=== PATIENT | female | born 1940 | race Caucasian/White ===

== ENCOUNTER 2017-04-06 19:58 | Emergency (ER) | payer MEDICARE, OTHER ==
[2017-04-06] MEDS ORDERED: Sodium Chloride 0.9% 500 ML IV SCH (20:45)
[2017-04-06] MEDS ORDERED: cefTRIAXone 1 GM in Premix Bag 1 BAG IV SCH (20:45)
[2017-04-06] MEDS ORDERED: Sodium Chloride 0.9% 500 ML IV ONE (20:54)
[2017-04-06 20:55] LABS: CHLORIDE,CL 106 mmol/L (98-110); SODIUM,NA 133 mmol/L (136-146)
--- NOTE | 2017-04-06 21:04 | EDM.PDOC ---
ED HPI GENERAL MEDICAL PROBLEM - General Chief Complaint: Fever Stated Complaint: PT HAS FEVER Time Seen by Provider: 04/06/17 20:02 Source of Information: Reports: Patient, Family History Limitations: Reports: No Limitations - History of Present Illness INITIAL COMMENTS - FREE TEXT/NARRATIVE: HISTORY AND PHYSICAL: History of present illness: [Patient is brought to the emergency room by her family. She's complained of a fever for the past 3 days she reports up to 107.0. Family has checked her temperature over the past couple of days with a reading of 101. On Sunday, April 04 she was diagnosed with a urinary tract infection at [facility] and started on Macrobid. Since starting on antibiotics she's been having some decreased appetite and nausea. Family reports that patient has had urinary tract infections over the past one year. This has never been worked up for followed by urologist. Patient admits that she had some confusion when she has had temperatures. Has not had any incontinence or burning with urination. She has episodes where she feels chills and shivers while urinating. No blood in her urine and no low back pain. No abdominal tenderness.] Review of systems: As per history of present illness and below otherwise all systems reviewed and negative. Past medical history: As per history of present illness and as reviewed below otherwise noncontributory. Surgical history: As per history of present illness and as reviewed below otherwise noncontributory. Social history: No reported history of drug or alcohol abuse. Family history: As per history of present illness and as reviewed below otherwise noncontributory. Physical exam: General: Well-developed well-nourished female in no acute distress. HEENT: Atraumatic, normocephalic. Oral mucous membranes are pink and moist, throat clear., neck supple, nontender. Lungs: Clear to auscultation, breath sounds equal bilaterally, chest nontender. Heart: S1S2, regular rate and rhythm. negative for clicks, rubs, or JVD. Abdomen: Soft, nondistended, nontender. Negative for masses, guarding or rebound. Negative for costovertebral or suprapubic tenderness. Pelvis: Stable nontender. Genitourinary: Deferred. Rectal: Deferred. Extremities: Atraumatic, negative for cords or calf pain. No Cyanosis or edema to feet or lower legs. Neurovascular unremarkable. Seems spry and has good range of motion. Neuro: Awake, alert, oriented. Motor and sensory unremarkable throughout. Exam nonfocal. Diagnostics: [CBC, CMP, UA, urine culture] Therapeutics: [Ceftriaxone 1 gram IV, normal saline 500mL] Impression: [UTI] Plan: [Rocephin 1 g given in the ER. Urine culture is pending. DC Macrobid. Start Bactrim DS #14 sig one by mouth twice a day zero refills. Son states that she will be scheduled for followup at [facility] on Sunday. Will make referral to Dr. Salgado for recurring UTI.] Definitive disposition and diagnosis as appropriate pending reevaluation and review of above. - Related Data Allergies Allergy/AdvReac Type Severity Reaction Status Date / Time No Known Allergies Allergy Verified 04/06/17 20:03 Home Meds: Home Meds Aspirin [Halfprin] 81 mg PO DAILY 05/04/15 [History] Estradiol 2 mg PO DAILY 05/04/15 [History] Nitrofurantoin [place]/Macrocryst [Macrobid] 0 mg PO BID 04/06/17 [History] Past Medical History HEENT History: Reports: Impaired Vision Cardiovascular History: Reports: None Respiratory History: Reports: Asthma Gastrointestinal History: Reports: Diverticulosis Genitourinary History: Reports: UTI, Recurrent Musculoskeletal History: Reports: None Neurological History: Reports: None Psychiatric History: Reports: None Dermatologic History: Reports: None - Infectious Disease History Infectious Disease History: Reports: Chicken Pox, Measles, Mumps - Past Surgical History Other Endocrine Surgeries/Procedures: removed half of thyroid from enlarged thyroid Social & Family History - Family History Family Medical History: Noncontributory - Tobacco Use Smoking Status *Q: Never Smoker - Recreational Drug Use Recreational Drug Use: No ED ROS GENERAL - Review of Systems Review Of Systems: ROS reveals no pertinent complaints other than HPI. ED EXAM, SEPSIS - Physical Exam Exam: See Below Course - Vital Signs Last Recorded V/S: Last Vital Signs Temp 98.8 F 04/06/17 20:09 Pulse 116 H 04/06/17 20:09 Resp 18 04/06/17 20:09 BP 130/88 04/06/17 20:09 Pulse Ox 93 L 04/06/17 20:09 - Orders/Labs/Meds Orders: Active Orders 24 hr Category Date Time Status CULTURE URINE [RM] Stat Lab 04/06/17 20:18 Received [email or web address] [Rocephin in Dextrose,Iso-Osm 1 GM/50 ML] 1 Med 04/06/17 20:45 Active gm Premix Bag 1 bag IV Q24H Medication Orders Ceftriaxone Sodium/Dextrose 1 (gm/ Premix) 50 mls @ 100 mls/hr IV Q24H LEILANI Last Admin: 04/06/17 21:01 Dose: 100 mls/hr Labs: Laboratory Tests 04/06/17 04/06/17 04/06/17 Range/Units 20:10 20:10 20:18 WBC 6.98 (4.0-11.0) K/uL RBC 4.48 (4.30-5.90) M/uL Hgb 13.6 (12.0-16.0) g/dL Hct 39.9 (36.0-46.0) % MCV 89.1 (80.0-98.0) fL MCH 30.4 (27.0-32.0) pg MCHC 34.1 (31.0-37.0) g/dL RDW Std Deviation 42.2 (28.0-62.0) fl RDW Coeff of Hammad 13 (11.0-15.0) % Plt Count 133 L (150-400) K/uL MPV 9.10 (7.40-12.00) fL Neut % (Auto) 84.6 H (48.0-80.0) % Lymph % (Auto) 3.6 L (16.0-40.0) % [place] % (Auto) 7.6 (0.0-15.0) % Eos % (Auto) 4.2 (0.0-7.0) % Baso % (Auto) 0.0 (0.0-1.5) % Neut # (Auto) 5.9 H (1.4-5.7) K/uL Lymph # (Auto) 0.3 L (0.6-2.4) K/uL [place] # (Auto) 0.5 (0.0-0.8) K/uL Eos # (Auto) 0.3 (0.0-0.7) K/uL Baso # (Auto) 0.0 (0.0-0.1) K/uL Nucleated RBC % 0.0 /100WBC Nucleated RBCs # 0 K/uL Sodium 133 L (136-146) mmol/L Potassium 3.7 (3.5-5.1) mmol/L Chloride 106 (98-110) mmol/L Carbon Dioxide 17 L (21-31) mmol/L BUN 16 (6.0-23.0) mg/dL Creatinine 0.8 (0.6-1.5) mg/dL Est Cr Clr Drug Dosing 45.65 mL/min Estimated GFR (MDRD) > 60.0 ml/min Glucose 163 H (60-110) mg/dL Calcium 9.1 (8.8-10.8) mg/dL Total Bilirubin 1.0 (0.1-1.5) mg/dL AST 33 (5-40) IU/L ALT 34 (8-54) IU/L Alkaline Phosphatase 118 (40-150) Total Protein 7.0 (6.0-8.0) g/dL Albumin 3.9 (3.4-4.8) g/dL Globulin 3.1 (2.0-3.5) g/dL Albumin/Globulin Ratio 1.3 (1.3-2.8) Urine Color YELLOW Urine Appearance CLEAR Urine pH 5.5 (5.0-8.0) Ur Specific [place] 1.015 (1.001-1.035) Urine Protein TRACE (NEGATIVE) mg/dL Urine Glucose (UA) NEGATIVE (NEGATIVE) mg/dL Urine Ketones NEGATIVE (NEGATIVE) mg/dL Urine Occult Blood SMALL H (NEGATIVE) Urine Nitrite NEGATIVE (NEGATIVE) Urine Bilirubin NEGATIVE (NEGATIVE) Urine Urobilinogen 0.2 (<2.0) EU/dL Ur Leukocyte Esterase MODERATE (NEGATIVE) Urine RBC 2-4 (0-2/HPF) Urine WBC 15-20 (0-5/HPF) Ur Epithelial Cells MODERATE (NONE-FEW) Urine Bacteria FEW (NEGATIVE) Meds: Medications Generic Name Dose Route Start Last Admin Trade Name Freq PRN Reason Stop Dose Admin Ceftriaxone Sodium/Dextrose 1 50 mls @ 100 mls/hr 04/06/17 20:45 04/06/17 21: 01 gm/ Premix IV 100 mls/hr Q24H LEILANI Administration Discontinued Medications Generic Name Dose Route Start Last Admin Trade Name Freq PRN Reason Stop Dose Admin Sodium Chloride 500 mls @ 999 mls/hr 04/06/17 20:45 Normal Saline IV STAT LEILANI Sodium Chloride 500 mls @ 999 mls/hr 04/06/17 20:54 04/06/17 20:55 Normal Saline IV 04/06/17 21:24 999 mls/hr .Bolus ONE Administration Departure - Departure Time of Disposition: 21:45 Disposition: Home, Self-Care 01 Condition: good Clinical Impression: UTI (urinary tract infection) Qualifiers: Urinary tract infection type: site unspecified Hematuria presence: without hematuria Qualified Code(s): N39.0 - Urinary tract infection, site not specified - Discharge Information Forms: ED Department Discharge Additional Instructions: The following information is given to patients seen in the emergency department who are being discharged to home. This information is to outline your options for follow-up care. We provide all patients seen in our emergency department with a follow-up referral. The need for follow-up, as well as the timing and circumstances, are variable depending upon the specifics of your emergency department visit. If you don't have a primary care physician on staff, we will provide you with a referral. We always advise you to contact your personal physician following an emergency department visit to inform them of the circumstance of the visit and for follow-up with them and/or the need for any referrals to a consulting specialist. The emergency department will also refer you to a specialist when appropriate. This referral assures that you have the opportunity for follow-up care with a specialist. All of these measure are taken in an effort to provide you with optimal care, which includes your follow-up. Under all circumstances we always encourage you to contact your private physician who remains a resource for coordinating your care. When calling for follow-up care, please make the office aware that this follow-up is from your recent emergency room visit. If for any reason you are refused follow-up, please contact the [facility] emergency department at and asked to speak to the emergency department charge nurse. [facility] [address] [place] [id number] [facility]rology [address] [place] [id number] You have been diagnosed with a urinary tract infection. Start Macrobid, start Bactrim. Take as instructed. Followup at the clinic listed above in 48-[address] Salgado's office at the clinic listed above to schedule an appointment for evaluation for recurring UTI. Continue Tylenol alternating with ibuprofen as needed for fever. Return to ER as needed as discussed. - My Orders Last 24 Hours: My Active Orders 04/06/17 20:18 CULTURE URINE [RM] Stat 04/06/17 20:45 cefTRIAXone [Rocephin in Dextrose,Iso-Osm 1 GM/50 ML] 1 gm Premix Bag 1 bag IV Q24H - Assessment/Plan Last 24 Hours: My Active Orders 04/06/17 20:18 CULTURE URINE [RM] Stat 04/06/17 20:45 cefTRIAXone [Rocephin in Dextrose,Iso-Osm 1 GM/50 ML] 1 gm Premix Bag 1 bag IV Q24H
[2017-04-06 21:40] VITALS: BP 122/58
== END 2017-04-06 21:58 | disposition home or self-care (01) ==
LOC: MW.ED 19:58
DX: N39.0 Urinary tract infection, site not specified (principal); Z79.899 Other long term (current) drug therapy
CPT/HCPCS: 36415; 80053; 81001; 85025; 87086; 96365; 99284; J0696; J7040

== ENCOUNTER → 2017-04-10 | Outpatient (CLI) | payer MEDICARE, OTHER | LOC: MW.CHIM 08:00 | PROVIDERS: ATTEND Internal Medicine | DX: N39.0 Urinary tract infection, site not specified (principal); Q31.0 Web of larynx; E03.9 Hypothyroidism, unspecified | CPT/HCPCS: 99214 ==

== ENCOUNTER 2020-12-10 11:06 | Inpatient (IN) | payer MEDICARE, OTHER ==
--- NOTE | 2020-12-10 11:23 | EDM.PDOC ---
ED HPI GENERAL MEDICAL PROBLEM - General Chief Complaint: Lower Extremity Injury/Pain Stated Complaint: FELL ON RT HIP Time Seen by Provider: 12/10/20 11:08 Source of Information: Reports: Patient History Limitations: Reports: No Limitations - History of Present Illness INITIAL COMMENTS - FREE TEXT/NARRATIVE: HISTORY AND PHYSICAL: History of present illness: Patient is an 80-year-old female who presents to the emergency room with complaints of right hip pain. She states that her foot got stuck under a rug as she was trying to turn around and lost her balance, falling onto her right hip. She denies hitting her head or having any loss of consciousness. She was able to call 911 for assistance. As she was getting into the ambulance she states her hip pain has improved a lot and "I think I just bruised a muscle". She denies any other extremity pain or tenderness. She offers no systemic complaints. Patient denies any fever, chills, headache, change in vision, synco pe or near syncope. Denies any chest pain, back pain, shortness of breath or cough. Denies any abdominal pain, nausea, vomiting, diarrhea, constipation or dysuria. Has not noted any blood in urine or stool. Patient has been eating and drinking appropriately. Review of systems: As per history of present illness and below otherwise all systems reviewed and negative. Past medical history: As per history of present illness and as reviewed below otherwise noncontributory. Surgical history: As per history of present illness and as reviewed below otherwise noncontributory. Social history: See social history for further information Family history: As per history of present illness and as reviewed below otherwise noncontributory. Physical exam: General: Well developed and well nourished. Alert and orientated x 3. Nontoxic in appearance and in no acute distress. Vital signs are stable and have been reviewed by me. Nursing notes were reviewed. HEENT: Nontender, no obvious injury/trauma, normocephalic, pupils equal and reactive bilaterally, negative for conjunctival pallor or scleral icterus, mucous membranes moist, TMs normal bilaterally, throat clear, teeth intact, no oral injury, neck supple, nontender, trachea midline. No drooling or trismus noted. No meningeal signs. No hot potato voice noted. Lungs: Clear to auscultation bilaterally. No wheezes, rales, or rhonchi. Chest nontender. Normal work of breathing, no accessory muscles used. Heart: S1S2, regular rate and rhythm without overt murmur, gallops, or rubs. No JVD. No peripheral edema Abdomen: Soft, nondistended, nontender. Normoactive bowel sounds. Negative for masses or costovertebral tenderness. Pelvis: Stable nontender. Genitourinary/Rectal: Deferred. C-spine/Back: No pinpoint vertebral tenderness upon palpation. No crepitus, step-offs or obvious deformities. Denies any urinary or fecal incontinence. Denies any numbness, tingling or saddle paresthesia. No concerns of serious infection, fracture or cord compression, or cauda equina syndrome. Deep tendon reflexes brisk bilaterally. Skin: Intact, warm, dry. No lesions or rashes noted. Hematologic: No petechiae or purpra. Mucosa appropriate color and normal nail bed color and refill. Extremities: Moves all extremities per self without difficulty or deficits, nontender with palpation of all extremities, negative for cords or calf pain. Neurovascular unremarkable. Neuro: Awake, alert, oriented. Cranial nerves II through XII unremarkable. Cerebellum unremarkable. Motor and sensory unremarkable throughout. Exam nonfocal. Psychiatric: Mood and affect are appropriate. Normal thought process. Answering questions appropriately. Notes: *This patient was seen and evaluated during the 2019 SARS-CoV-2 novel coronavirus pandemic period. Community viral transmission is ongoing at time of this encounter and the emergency department is operating under pandemic response procedures. EKG shows a sinus rhythm with a rate of 77. No concern for STEMI. While down in imaging she did have some increased pain and is requesting something at this time for pain control. Nursing staff was able to go start an IV and give her some morphine which alleviated her discomfort during transferring over to the CT cot. Head CT shows an atraumatic appearance of the brain, no acute findings. Chest x-ray is unremarkable. The initial view of the hip x-ray CT shows a possible intertrochanteric fracture (my viewing/MD viewing). We did get a CT for greater assessment of this. X-ray reading shows a subtle nondisplaced intertrochanteric fracture is present in the right femur. CT report shows an acute impacted intertrochanteric fracture of the right femur. Mild degenerative changes of the right hip. Basic lab work is pending. I have talked with the patient about today's findings, in addition to providing specific details for plan of care. 1325: Dr Corbin was consulted on this case. He is requesting that I talk with PATY and the hospitalist before he will accept this patient. 1330: PATY Gomez was called. He will have someone come see the patient. Dr Cleveland, hospitalist, was consulted on this case. 1335: Spoke with Bambi, daughter - gave patient update with permission. 1430: Dr Corbin here to see patient. There is discussion whether or not this patient is a high risk intubation due to some esophageal/tracheal surgeries in the past. Ultimately it was decided that this patient can stay for surgery. Patient has remained stable and comfortable while in the emergency room. Diagnostics: Head CT, 1 view chest, right hip and pelvis x-ray Therapeutics: Morphine, Impression: Intertrochanteric fracture of the right femur Plan: Inpatient admission to [facility] Definitive disposition and diagnosis as appropriate pending reevaluation and rev iew of above. R hip Pain Score (Numeric/FACES): 10 - Related Data Allergies Allergy/AdvReac Type Severity Reaction Status Date / Time No Known Allergies Allergy Verified 12/10/20 11:12 Home Meds: Home Meds Albuterol Sulfate [Albuterol Sulfate Hfa] 1 inh INH DAILY PRN 12/10/20 [History] Aspirin 81 mg PO BEDTIME 12/10/20 [History] Past Medical History HEENT History: Reports: Impaired Vision Cardiovascular History: Reports: None Respiratory History: Reports: Asthma Gastrointestinal History: Reports: Diverticulosis Genitourinary History: Reports: UTI, Recurrent Musculoskeletal History: Reports: None Neurological History: Reports: None Psychiatric History: Reports: None Dermatologic History: Reports: None - Infectious Disease History Infectious Disease History: Reports: Chicken Pox, Measles, Mumps - Past Surgical History Other Endocrine Surgeries/Procedures: removed half of thyroid from enlarged thyroid Social & Family History - Family History Family Medical History: No Pertinent Family History - Caffeine Use Caffeine Use: Reports: Coffee - Recreational Drug Use Recreational Drug Use: No Review of Systems - Review of Systems Review Of Systems: Comprehensive ROS is negative, except as noted in HPI. ED EXAM, GENERAL - Physical Exam Exam: See Below (See dictation) Course - Vital Signs Last Recorded V/S: Last Vital Signs Temp 98.8 F 12/10/20 17:23 Pulse 87 12/10/20 17:23 Resp 18 12/10/20 17:23 BP 146/72 H 12/10/20 17:23 Pulse Ox 97 12/10/20 17:23 - Orders/Labs/Meds Orders: Active Orders 24 hr Category Date Time Status CULTURE URINE [RM] Urgent Lab 12/10/20 15:20 Received Medication Orders Acetaminophen (Tylenol) 650 mg PO Q4H PRN PRN Reason: Pain (Mild 1-3)/fever Hydrocodone Bitart/Acetaminophen (Sassafras 325-5 Mg) 1 tab PO Q4H PRN PRN Reason: Pain (moderate 4-6) Albuterol (Proventil Neb Soln) 2.5 mg NEB Q2H PRN PRN Reason: Shortness Of Breath/wheezing Bisacodyl (Dulcolax) 10 mg RECTAL DAILY PRN PRN Reason: if no BM after 2 days Docusate Sodium (Colace) 100 mg PO BID [facility] Enoxaparin Sodium (Lovenox) 40 mg SUBCUT Q24H [facility] Stop: 12/11/20 17:31 Last Admin: 12/10/20 17:40 Dose: 40 mg Documented by: ALBIMAR Ceftriaxone Sodium/Dextrose 1 (gm/ Premix) 50 mls @ 100 mls/hr IV Q24H [facility] Last Admin: 12/10/20 17:08 Dose: 100 mls/hr Documented by: ALBIMAR Lactated Ringer's (Ringers, Lactated) 1,000 mls @ 50 mls/hr IV Q20H [facility] Last Admin: 12/10/20 17:39 Dose: 50 mls/hr Documented by: ALBIMAR Morphine Sulfate (Morphine) 2 mg IVPUSH Q3H PRN PRN Reason: Pain (severe 7-10) Last Admin: 12/10/20 16:52 Dose: 2 mg Documented by: ALBIMAR Ondansetron HCl (Zofran) 4 mg IVPUSH Q4H PRN PRN Reason: Nausea Sodium Chloride (Saline Flush) 2.5 ml FLUSH ASDIRECTED PRN PRN Reason: Keep Vein Open Labs: Laboratory Tests 12/10/20 12/10/20 12/10/20 Range/Units 13:45 13:45 13:45 WBC 11.11 H (4.0-11.0) K/uL RBC 4.28 L (4.30-5.90) M/uL Hgb 12.7 (12.0-16.0) g/dL Hct 39.0 (36.0-46.0) % MCV 91.1 (80.0-98.0) fL MCH 29.7 (27.0-32.0) pg MCHC 32.6 (31.0-37.0) g/dL RDW Std Deviation 41.2 (28.0-62.0) fl RDW Coeff of Hammad 12 (11.0-15.0) % Plt Count 180 (150-400) K/uL MPV 9.10 (7.40-12.00) fL Neut % (Auto) 87.7 H (48.0-80.0) % Lymph % (Auto) 6.8 L (16.0-40.0) % Buchanan % (Auto) 5.2 (0.0-15.0) % Eos % (Auto) 0.2 (0.0-7.0) % Baso % (Auto) 0.1 (0.0-1.5) % Neut # (Auto) 9.8 H (1.4-5.7) K/uL Lymph # (Auto) 0.8 (0.6-2.4) K/uL Buchanan # (Auto) 0.6 (0.0-0.8) K/uL Eos # (Auto) 0.0 (0.0-0.7) K/uL Baso # (Auto) 0.0 (0.0-0.1) K/uL Nucleated RBC % 0.0 /100WBC Nucleated RBCs # 0 K/uL INR 1.03 Sodium 141 (136-145) mmol/L Potassium 3.9 (3.5-5.1) mmol/L Chloride 109 H (98-107) mmol/L Carbon Dioxide 24.9 (21.0-32.0) mmol/L BUN 17 (7.0-18.0) mg/dL Creatinine 0.7 (0.6-1.0) mg/dL Est Cr Clr Drug Dosing TNP Estimated GFR (MDRD) > 60.0 ml/min Glucose 131 H (74-106) mg/dL Calcium 8.6 (8.5-10.1) mg/dL Total Bilirubin 0.4 (0.2-1.0) mg/dL AST 17 (15-37) IU/L ALT 21 (14-63) IU/L Alkaline Phosphatase 81 (46-116) U/L Total Protein 6.7 (6.4-8.2) g/dL Albumin 3.4 (3.4-5.0) g/dL Globulin 3.3 (2.6-4.0) g/dL Albumin/Globulin Ratio 1.0 (0.9-1.6) Urine Color Urine Appearance Urine pH (5.0-8.0) Ur Specific [place] (1.001-1.035) Urine Protein (NEGATIVE) mg/dL Urine Glucose (UA) (NEGATIVE) mg/dL Urine Ketones (NEGATIVE) mg/dL Urine Occult Blood (NEGATIVE) Urine Nitrite (NEGATIVE) Urine Bilirubin (NEGATIVE) Urine Urobilinogen (<2.0) EU/dL Ur Leukocyte Esterase (NEGATIVE) Urine RBC (0-2/HPF) Urine WBC (0-5/HPF) Ur Epithelial Cells (NONE-FEW) Amorphous Sediment (NEGATIVE) Urine Bacteria (NEGATIVE) Urine Mucus (NONE-MOD) SARS-CoV-2 RNA (MADISYN) (NEGATIVE) 12/10/20 12/10/20 Range/Units 14:07 15:20 WBC (4.0-11.0) K/uL RBC (4.30-5.90) M/uL Hgb (12.0-16.0) g/dL Hct (36.0-46.0) % MCV (80.0-98.0) fL MCH (27.0-32.0) pg MCHC (31.0-37.0) g/dL RDW Std Deviation (28.0-62.0) fl RDW Coeff of Hammad (11.0-15.0) % Plt Count (150-400) K/uL MPV (7.40-12.00) fL Neut % (Auto) (48.0-80.0) % Lymph % (Auto) (16.0-40.0) % Buchanan % (Auto) (0.0-15.0) % Eos % (Auto) (0.0-7.0) % Baso % (Auto) (0.0-1.5) % Neut # (Auto) (1.4-5.7) K/uL Lymph # (Auto) (0.6-2.4) K/uL Buchanan # (Auto) (0.0-0.8) K/uL Eos # (Auto) (0.0-0.7) K/uL Baso # (Auto) (0.0-0.1) K/uL Nucleated RBC % /100WBC Nucleated RBCs # K/uL INR Sodium (136-145) mmol/L Potassium (3.5-5.1) mmol/L Chloride (98-107) mmol/L Carbon Dioxide (21.0-32.0) mmol/L BUN (7.0-18.0) mg/dL Creatinine (0.6-1.0) mg/dL Est Cr Clr Drug Dosing Estimated GFR (MDRD) ml/min Glucose (74-106) mg/dL Calcium (8.5-10.1) mg/dL Total Bilirubin (0.2-1.0) mg/dL AST (15-37) IU/L ALT (14-63) IU/L Alkaline Phosphatase (46-116) U/L Total Protein (6.4-8.2) g/dL Albumin (3.4-5.0) g/dL Globulin (2.6-4.0) g/dL Albumin/Globulin Ratio (0.9-1.6) Urine Color YELLOW Urine Appearance CLEAR Urine pH 5.5 (5.0-8.0) Ur Specific [place] >= 1.030 (1.001-1.035) Urine Protein NEGATIVE (NEGATIVE) mg/dL Urine Glucose (UA) NEGATIVE (NEGATIVE) mg/dL Urine Ketones NEGATIVE (NEGATIVE) mg/dL Urine Occult Blood TRACE-INTACT H (NEGATIVE) Urine Nitrite NEGATIVE (NEGATIVE) Urine Bilirubin NEGATIVE (NEGATIVE) Urine Urobilinogen 0.2 (<2.0) EU/dL Ur Leukocyte Esterase TRACE H (NEGATIVE) Urine RBC 2-3 (0-2/HPF) Urine WBC 2-4 (0-5/HPF) Ur Epithelial Cells RARE (NONE-FEW) Amorphous Sediment FEW (NEGATIVE) Urine Bacteria FEW (NEGATIVE) Urine Mucus RARE (NONE-MOD) SARS-CoV-2 RNA (MADISYN) NEGATIVE (NEGATIVE) Meds: Medications Generic Name Dose Route Start Last Admin Trade Name Freq PRN Reason Stop Dose Admin Acetaminophen 650 mg 12/10/20 16:29 Tylenol PO Q4H PRN Pain (Mild 1-3)/fever Hydrocodone Bitart/Acetaminophen 1 tab 12/10/20 16:29 Sassafras 325-5 Mg PO Q4H PRN Pain (moderate 4-6) Albuterol 2.5 mg 12/10/20 16:30 Proventil Neb Soln NEB Q2H PRN Shortness Of Breath/wheezing Bisacodyl 10 mg 12/10/20 17:01 Dulcolax RECTAL DAILY PRN if no BM after 2 days Docusate Sodium 100 mg 12/10/20 21:00 Colace PO BID LEILANI Enoxaparin Sodium 40 mg 12/10/20 17:30 12/10/20 17:40 Lovenox SUBCUT 12/11/20 17:31 40 mg Q24H LE[facility] Administration Ceftriaxone Sodium/Dextrose 1 50 mls @ 100 mls/hr 12/10/20 17:00 12/10/20 17:08 gm/ Premix IV 100 mls/hr Q24H [facility] Administration Lactated Ringer's 1,000 mls @ 50 mls/hr 12/10/20 17:15 12/10/20 17:39 Ringers, Lactated IV 50 mls/hr Q20H [facility] Administration Morphine Sulfate 2 mg 12/10/20 16:29 12/10/20 16:52 Morphine IVPUSH 2 mg Q3H PRN Administration Pain (severe 7-10) Ondansetron HCl 4 mg 12/10/20 16:30 Zofran IVPUSH Q4H PRN Nausea Sodium Chloride 2.5 ml 12/10/20 16:30 Saline Flush FLUSH ASDIRECTED PRN Keep Vein Open Discontinued Medications Generic Name Dose Route Start Last Admin Trade Name Freq PRN Reason Stop Dose Admin Lactated Ringer's 1,000 mls @ 75 mls/hr 12/10/20 14:15 12/10/20 14:22 Ringers, Lactated IV 75 mls/hr ASDIRECTED LEILANI Administration Morphine Sulfate 2 mg 12/10/20 12:27 12/10/20 12:27 Morphine IVPUSH 12/10/20 12:28 2 mg ONETIME ONE Administration Morphine Sulfate 2 mg 12/10/20 14:15 12/10/20 14:23 Morphine IVPUSH 12/10/20 14:16 2 mg ONETIME ONE Administration Departure - Departure Time of Disposition: 19:00 Disposition: Admitted As Inpatient 65 Clinical Impression: Intertrochanteric fracture of right hip Qualifiers: Encounter type: initial encounter Fracture type: closed Fracture alignment: nondisplaced Qualified Code(s): S72.144A - Nondisplaced intertrochanteric fracture of right femur, initial encounter for closed fracture - Discharge Information Sepsis Event Note (ED) - Evaluation Sepsis Screening Result: No Definite Risk - Focused Exam Vital Signs: Vital Signs Temp Pulse Resp BP Pulse Ox 12/10/20 11:13 97.8 F 81 18 141/80 H 96
--- NOTE | 2020-12-10 11:56 | PCM.SN.2 ---
- Free Text/Narrative Note: Heart rate = 77 bpm, normal sinus rhythm, normal QRS interval, no STEMI. EKG and rhythm strip interpreted by me at 1125
[2020-12-10] MEDS ORDERED: Morphine 2 MG/ML SYRINGE IVPUSH ONE ×2 (12:27→14:15)
--- NOTE | 2020-12-10 12:50 | CR ---
INDICATION: Shortness of breath TECHNIQUE: Chest 1 view COMPARISON: None FINDINGS: Cardiovascular and mediastinum: Heart size and vasculature are normal in caliber and appearance. Lungs and pleural spaces: Lungs are clear. No sign of infiltrate or mass. No sign of pleural effusion. No pneumothorax. Bones and soft tissues: No significant findings. IMPRESSION: No acute or significant findings. Dictated by Nasim Elmore MD @ Dec 10 2020 12:49PM Signed by Dr. Nasim Elmore @ Dec 10 2020 12:49PM
--- NOTE | 2020-12-10 12:56 | CR ---
Indication: Injury and pain Technique: Pelvis and right hip 3 views Comparison: None Findings/Impression: Bones: A subtle nondisplaced intertrochanteric fracture is present in the right femur. No other osseous abnormality. Joint spaces: No significant degenerative changes. Soft tissues: Unremarkable. Dictated by Nasim Elmore MD @ Dec 10 2020 12:52PM Signed by Dr. Nasim Elmore @ Dec 10 2020 12:55PM
--- NOTE | 2020-12-10 13:12 | CT ---
HISTORY: Hip pain after a fall. TECHNIQUE: CT right hip without contrast. COMPARISON: Hip radiographs same day. FINDINGS: Acute fracture of the intertrochanteric right femur with two major parts. Fracture is impacted up to 8 mm posteriorly. No significant displacement otherwise. Mild degenerative changes of the right hip with chondrocalcinosis. Right hip joint lipohemarthrosis. Pubic symphysis and right sacroiliac joint are maintained. Lower lumbar spine degenerative changes. No lytic or blastic bone lesions. Colonic diverticulosis. IMPRESSION: 1. Acute impacted intertrochanteric fracture of the right femur. 2. Mild degenerative changes of the right hip. Please note that all CT scans at this facility use dose modulation, iterative reconstruction, and/or weight-based dosing when appropriate to reduce radiation dose to as low as reasonably achievable. Dictated by Zbigniew Reis MD @ Dec 10 2020 12:57PM Signed by Dr. Zbigniew Reis @ Dec 10 2020 1:11PM
--- NOTE | 2020-12-10 13:27 | CT ---
INDICATION: Fall TECHNIQUE: CT head without contrast. COMPARISON: None FINDINGS: CSF spaces: Within normal limits for age. Brain parenchyma: The cota-white differentiation is normal. No sign of mass, hemorrhage, or midline shift. Skull base and calvarium: The visualized paranasal sinuses and mastoid air cells demonstrate no acute or significant findings. The visualized orbits are grossly unremarkable. No skull fractures. IMPRESSION: Atraumatic appearance to the brain. Please note that all CT scans at this facility use dose modulation, iterative reconstruction, and/or weight-based dosing when appropriate to reduce radiation dose to as low as reasonably achievable. Dictated by Antonio Silva MD @ Dec 10 2020 1:25PM Signed by Dr. Antonio Silva @ Dec 10 2020 1:25PM
[2020-12-10] MEDS ORDERED: Lactated Ringers 1,000 ML IV SCH (14:15)
[2020-12-10 14:19] LABS: BLOOD UREA NITROGEN,BUN 17 mg/dL (7.0-18.0); CARBON DIOXIDE,CO2 24.9 mmol/L (21.0-32.0); CHLORIDE,CL 109 mmol/L (98-107); GLUCOSE RANDOM 131 mg/dL (74-106); POTASSIUM,K 3.9 mmol/L (3.5-5.1); SODIUM,NA 141 mmol/L (136-145)
--- NOTE | 2020-12-10 14:49 | PCM.CONS ---
H&P History of Present Illness - General Date of Service: 12/10/20 Admit Problem/Dx: Right intertrochanteric hip fracture Source of Information: Patient, Provider History Limitations: Reports: No Limitations - History of Present Illness Initial Comments - Free Text/Narative: 80 year old female with right minimally displaced intertrochanteric hip fracture. She tripped in her home today. X-rays identified above fracture. Significant pain. No LOC, CP, SOB. No personal history of VTE events. R hip Pain Score (Numeric/FACES): 10 - Related Data Allergies/Adverse Reactions: Allergies Allergy/AdvReac Type Severity Reaction Status Date / Time No Known Allergies Allergy Verified 12/10/20 11:12 Home Medications: Home Meds Albuterol Sulfate [Albuterol Sulfate Hfa] 1 inh INH DAILY PRN 12/10/20 [History] Past Medical History HEENT History: Reports: Impaired Vision Cardiovascular History: Reports: None Respiratory History: Reports: Asthma Gastrointestinal History: Reports: Diverticulosis Genitourinary History: Reports: UTI, Recurrent Musculoskeletal History: Reports: None Neurological History: Reports: None Psychiatric History: Reports: None Dermatologic History: Reports: None - Infectious Disease History Infectious Disease History: Reports: Chicken Pox, Measles, Mumps - Past Surgical History Other Endocrine Surgeries/Procedures: removed half of thyroid from enlarged t hyroid Social & Family History - Family History Family Medical History: No Pertinent Family History - Caffeine Use Caffeine Use: Reports: Coffee - Recreational Drug Use Recreational Drug Use: No H&P Review of Systems - Review of Systems: Review Of Systems: See Below Musculoskeletal: Reports: Joint Pain Exam - Exam Exam: See Below - Vital Signs Vital Signs: Last Vital Signs Temp 97.8 F 12/10/20 11:13 Pulse 81 12/10/20 11:13 Resp 18 12/10/20 11:13 BP 141/80 H 12/10/20 11:13 Pulse Ox 96 12/10/20 11:13 Weight: 101 lb - Exam Physical Exam Comments:: Skin intact Hip ROM, stability, palption, and strength testing deferred due to known fracture. DP pulse palpable Toe deformities Moves toes - Patient Data Lab Results Last 24 hrs: Laboratory Results - last 24 hr 12/10/20 12/10/20 12/10/20 Range/Units 13:45 13:45 13:45 WBC 11.11 H (4.0-11.0) K/uL RBC 4.28 L (4.30-5.90) M/uL Hgb 12.7 (12.0-16.0) g/dL Hct 39.0 (36.0-46.0) % MCV 91.1 (80.0-98.0) fL MCH 29.7 (27.0-32.0) pg MCHC 32.6 (31.0-37.0) g/dL RDW Std Deviation 41.2 (28.0-62.0) fl RDW Coeff of Hammad 12 (11.0-15.0) % Plt Count 180 (150-400) K/uL MPV 9.10 (7.40-12.00) fL Neut % (Auto) 87.7 H (48.0-80.0) % Lymph % (Auto) 6.8 L (16.0-40.0) % Johnson % (Auto) 5.2 (0.0-15.0) % Eos % (Auto) 0.2 (0.0-7.0) % Baso % (Auto) 0.1 (0.0-1.5) % Neut # (Auto) 9.8 H (1.4-5.7) K/uL Lymph # (Auto) 0.8 (0.6-2.4) K/uL Johnson # (Auto) 0.6 (0.0-0.8) K/uL Eos # (Auto) 0.0 (0.0-0.7) K/uL Baso # (Auto) 0.0 (0.0-0.1) K/uL Nucleated RBC % 0.0 /100WBC Nucleated RBCs # 0 K/uL INR 1.03 Sodium 141 (136-145) mmol/L Potassium 3.9 (3.5-5.1) mmol/L Chloride 109 H (98-107) mmol/L Carbon Dioxide 24.9 (21.0-32.0) mmol/L BUN 17 (7.0-18.0) mg/dL Creatinine 0.7 (0.6-1.0) mg/dL Est Cr Clr Drug Dosing TNP Estimated GFR (MDRD) > 60.0 ml/min Glucose 131 H (74-106) mg/dL Calcium 8.6 (8.5-10.1) mg/dL Total Bilirubin 0.4 (0.2-1.0) mg/dL AST 17 (15-37) IU/L ALT 21 (14-63) IU/L Alkaline Phosphatase 81 (46-116) U/L Total Protein 6.7 (6.4-8.2) g/dL Albumin 3.4 (3.4-5.0) g/dL Globulin 3.3 (2.6-4.0) g/dL Albumin/Globulin Ratio 1.0 (0.9-1.6) Result Diagrams: 12/10/20 13:45 12/10/20 13:45 Sepsis Event Note - Evaluation Sepsis Screening Result: No Definite Risk - Focused Exam Vital Signs: Vital Signs Temp Pulse Resp BP Pulse Ox 12/10/20 11:13 97.8 F 81 18 141/80 H 96 Consult PN Assessment/Plan Procedures: Procedures ANGIOTENSIN I ENZYME TEST (07/14/16) ANTINUCLEAR ANTIBODIES (07/14/16) ASSAY OF CREATININE (05/04/16) ASSAY OF TROPONIN QUANT (05/05/15) ASSAY THYROID STIM HORMONE (12/01/15) CHEST X-RAY 2VW FRONTAL&LATL (09/19/16) CLOSTRIDIUM AG IA (04/05/18) COMPLETE CBC W/AUTO DIFF WBC (03/28/18) COMPREHEN METABOLIC PANEL (04/06/17) CT ABD & PELV 1/> REGNS (09/24/14) CT SOFT TISSUE NECK W/DYE (05/15/16) CT THORAX DX C-/C+ (05/15/16) ELECTROCARDIOGRAM TRACING (02/26/18) EMERGENCY DEPT VISIT (04/06/17) EMERGENCY DEPT VISIT (04/23/16) EMERGENCY DEPT VISIT (05/04/15) EMERGENCY DEPT VISIT (05/04/15) EVALUATE PT USE OF INHALER (04/23/16) FLUORESCENT ANTIBODY TITER (07/14/16) IMMUNOASSAY NONANTIBODY (07/14/16) LACTOFERRIN FECAL (QUAL) (04/05/18) LIPID PANEL (12/01/15) METABOLIC PANEL TOTAL CA (03/28/18) MICROBE SUSCEPTIBLE LINSEY (05/26/15) MOTION FLUOROSCOPY/SWALLOW (06/14/16) MRI BRAIN STEM W/O DYE (08/21/14) OFFICE O/P EST LOW 20-29 MIN (02/26/18) OFFICE O/P EST MOD 30-39 MIN (04/21/16) PROTHROMBIN TIME (03/28/18) RBC SED RATE AUTOMATED (05/04/16) RHEUMATOID FACTOR TEST QUAL (05/04/16) ROUTINE VENIPUNCTURE (03/28/18) STOOL CULTR AEROBIC BACT EA (04/05/18) THER/PROPH/DIAG INJ SC/IM (04/23/16) THER/PROPH/DIAG IV INF INIT (04/06/17) URINALYSIS AUTO W/SCOPE (04/01/18) URINE BACTERIA CULTURE (05/26/15) URINE CULTURE/COLONY COUNT (04/01/18) X-RAY EXAM CHEST 2 VIEWS (02/26/18) X-RAY XM ESOPHAGUS 1CNTRST (09/24/14) X-RAY XM PHRNX&/CRV ESOPH C+ (05/15/16) X-RAY XM SWLNG FUNCJ C+ (06/14/16) Problem List Initiated/Reviewed/Updated: Yes Plan: Right minimally displaced intertrochanteric hip fracture. Recommend ORIF with sliding hip screw ([place]) per [facility] clinical practice guidelines. Risks and benefits of surgery discussed with patient. All questions answered. Consent completed. Ancef for prophylactic antibiotics. NPO after midnight Sunday morning for surgery at 9:00 AM Sunday ching. Given no h/o VTE events, recommend aspirin EC 325 mg qday for 90 days for VTE prophylaxis post-op Admit to Medicine if cleared by Anesthesia.
--- NOTE | 2020-12-10 15:12 | PCM.PREANE ---
Preanesthetic Assessment - Anesthesia/Transfusion/Family Hx Anesthesia History: Prior Anesthesia Without Reaction Family History of Anesthesia Reaction: No Transfusion History: No Prior Transfusion(s) Intubation History: Unknown - Review of Systems General: No Symptoms Pulmonary: No Symptoms Cardiovascular: No Symptoms Gastrointestinal: No Symptoms Neurological: No Symptoms Other: Reports: None - Physical Assessment Vital Signs: Last Vital Signs Temp 97.8 F 12/10/20 11:13 Pulse 81 12/10/20 11:13 Resp 18 12/10/20 11:13 BP 141/80 H 12/10/20 11:13 Pulse Ox 96 12/10/20 11:13 Weight: 45.813 kg ASA Class: 2E Mental Status: Alert & Oriented x3 Airway Class: Mallampati = 2 Dentition: Reports: Normal Dentition Thyro-Mental Finger Breadths: 2 Mouth Opening Finger Breadths: 2 ROM/Head Extension: Full Lungs: Clear to Auscultation, Normal Respiratory Effort Cardiovascular: Regular Rate, Regular Rhythm - Lab Values: Laboratory Last Values WBC 11.11 K/uL (4.0-11.0) H 12/10/20 13:45 RBC 4.28 M/uL (4.30-5.90) L 12/10/20 13:45 Hgb 12.7 g/dL (12.0-16.0) 12/10/20 13:45 Hct 39.0 % (36.0-46.0) 12/10/20 13:45 MCV 91.1 fL (80.0-98.0) 12/10/20 13:45 MCH 29.7 pg (27.0-32.0) 12/10/20 13:45 MCHC 32.6 g/dL (31.0-37.0) 12/10/20 13:45 RDW Std Deviation 41.2 fl (28.0-62.0) 12/10/20 13:45 RDW Coeff of Hammad 12 % (11.0-15.0) 12/10/20 13:45 Plt Count 180 K/uL (150-400) 12/10/20 13:45 MPV 9.10 fL (7.40-12.00) 12/10/20 13:45 Neut % (Auto) 87.7 % (48.0-80.0) H 12/10/20 13:45 Lymph % (Auto) 6.8 % (16.0-40.0) L 12/10/20 13:45 Stewart % (Auto) 5.2 % (0.0-15.0) 12/10/20 13:45 Eos % (Auto) 0.2 % (0.0-7.0) 12/10/20 13:45 Baso % (Auto) 0.1 % (0.0-1.5) 12/10/20 13:45 Neut # (Auto) 9.8 K/uL (1.4-5.7) H 12/10/20 13:45 Lymph # (Auto) 0.8 K/uL (0.6-2.4) 12/10/20 13:45 Stewart # (Auto) 0.6 K/uL (0.0-0.8) 12/10/20 13:45 Eos # (Auto) 0.0 K/uL (0.0-0.7) 12/10/20 13:45 Baso # (Auto) 0.0 K/uL (0.0-0.1) 12/10/20 13:45 Nucleated RBC % 0.0 /100WBC 12/10/20 13:45 Nucleated RBCs # 0 K/uL 12/10/20 13:45 INR 1.03 12/10/20 13:45 Sodium 141 mmol/L (136-145) 12/10/20 13:45 Potassium 3.9 mmol/L (3.5-5.1) 12/10/20 13:45 Chloride 109 mmol/L (98-107) H 12/10/20 13:45 Carbon Dioxide 24.9 mmol/L (21.0-32.0) 12/10/20 13:45 BUN 17 mg/dL (7.0-18.0) 12/10/20 13:45 Creatinine 0.7 mg/dL (0.6-1.0) 12/10/20 13:45 Est Cr Clr Drug Dosing TNP 12/10/20 13:45 Estimated GFR (MDRD) > 60.0 ml/min 12/10/20 13:45 Glucose 131 mg/dL (74-106) H 12/10/20 13:45 Calcium 8.6 mg/dL (8.5-10.1) 12/10/20 13:45 Total Bilirubin 0.4 mg/dL (0.2-1.0) 12/10/20 13:45 AST 17 IU/L (15-37) 12/10/20 13:45 ALT 21 IU/L (14-63) 12/10/20 13:45 Alkaline Phosphatase 81 U/L (46-116) 12/10/20 13:45 Total Protein 6.7 g/dL (6.4-8.2) 12/10/20 13:45 Albumin 3.4 g/dL (3.4-5.0) 12/10/20 13:45 Globulin 3.3 g/dL (2.6-4.0) 12/10/20 13:45 Albumin/Globulin Ratio 1.0 (0.9-1.6) 12/10/20 13:45 - Allergies Allergies/Adverse Reactions: Allergies Allergy/AdvReac Type Severity Reaction Status Date / Time No Known Allergies Allergy Verified 12/10/20 11:12 - Anesthesia Plan Free Text/Narrative:: 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 No tracheal narrowing is noted on CT scan. - Acknowledgements Anesthesia Type Planned: Spinal Pt an Appropriate Candidate for the Planned Anesthesia: Yes Alternatives and Risks of Anesthesia Discussed w Pt/Guardian: Yes Pt/Guardian Understands and Agrees with Anesthesia Plan: Yes PreAnesthesia Questionnaire HEENT History: Reports: Impaired Vision Cardiovascular History: Reports: None Respiratory History: Reports: Asthma Gastrointestinal History: Reports: Diverticulosis Genitourinary History: Reports: UTI, Recurrent Musculoskeletal History: Reports: None Neurological History: Reports: None Psychiatric History: Reports: None Endocrine/Metabolic History: Reports: None Hematologic History: Reports: None Immunologic History: Reports: None Oncologic (Cancer) History: Reports: None Dermatologic History: Reports: None - Infectious Disease History Infectious Disease History: Reports: Chicken Pox, Measles, Mumps - Past Surgical History Female Surgical History: Reports: Other (See Below) ([facility]) Other Endocrine Surgeries/Procedures: removed half of thyroid from enlarged thyroid - SUBSTANCE USE Tobacco Use Within Last Twelve Months: No Recreational Drug Use History: No - HOME MEDS Home Medications: Home Meds Albuterol Sulfate [Albuterol Sulfate Hfa] 1 inh INH DAILY PRN 12/10/20 [History] - CURRENT (IN HOUSE) MEDS Current Meds: Current Medications Lactated Ringer's (Ringers, Lactated) 1,000 mls @ 75 mls/hr IV ASDIRECTED [facility] Last Admin: 12/10/20 14:22 Dose: 75 mls/hr Documented by: Discontinued Medications Morphine Sulfate (Morphine) 2 mg IVPUSH ONETIME ONE Stop: 12/10/20 12:28 Last Admin: 12/10/20 12:27 Dose: 2 mg Documented by: Morphine Sulfate (Morphine) 2 mg IVPUSH ONETIME ONE Stop: 12/10/20 14:16 Last Admin: 12/10/20 14:23 Dose: 2 mg Documented by:
[2020-12-10] MEDS ORDERED: Acetaminophen/HYDROcodone 325-5 MG Tab PO PRN (16:29)
[2020-12-10] MEDS ORDERED: Acetaminophen 325 MG Tab PO PRN (16:29)
[2020-12-10] MEDS ORDERED: Ondansetron 4 MG/2 ML SDV IVPUSH PRN (16:30)
[2020-12-10] MEDS ORDERED: Albuterol 0.083% 2.5 MG/3 ML Neb Soln NEB PRN (16:30)
[2020-12-10] MEDS ORDERED: Sodium Chloride 0.9% 2.5 ML Syringe FLUSH PRN (16:30)
--- NOTE | 2020-12-10 16:49 | PCM.HP.2 ---
H&P History of Present Illness - General Date of Service: 12/10/20 Admit Problem/Dx: Right intertrochanteric hip fracture Source of Information: Patient History Limitations: Reports: No Limitations - History of Present Illness Initial Comments - Free Text/Narative: This 80-year-old female with past medical history of asthma presented to the ER via EMS after a fall this morning. She reports she woke up and went to turn off a lamp she has on overnight she turned the lamp off and turned reporting that her foot got caught on a rug and she tried to catch herself as she was falling but landed directly on her right hip. She had instant significant and severe pain to her right hip. She denies hitting her head. She denies any loss of consciousness. She denies any chest pain shortness of breath palpitations or abdominal pain. She denies any recent diarrhea or constipation and no urinary symptoms. She denies any focal neurological deficits. She reports that she has been feeling well up until her fall. Denies any recent fevers chills or sinus congestion. She reports that she stays home and has family members within town that visit her at random times. She denies any smoking history no alcohol or recreational drug use. She does have history of surgical procedures including 1 to her neck. 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 She had followed up with ENT as an outpatient a few years ago. In the ER lab work revealed mild leukocytosis at 11,000. BMP within normal limits UA after catheter placement revealed few bacteria with positive leukocyte esterase and 2-4 pyuria. Chest x-ray negative. Hip x-ray and CT revealed minimally displaced right intertrochanteric hip fracture. EKG sinus rhythm no ST or T wave changes. In the ER Dr. Corbin, orthopedics was consulted. Anesthesia was also consulted and has accepted patient for surgical fixation. PCP Dr. Romo R hip Pain Score (Numeric/FACES): 10 - Related Data Allergies/Adverse Reactions: Allergies Allergy/AdvReac Type Severity Reaction Status Date / Time No Known Allergies Allergy Verified 12/10/20 11:12 Home Medications: Home Meds Albuterol Sulfate [Albuterol Sulfate Hfa] 1 inh INH DAILY PRN 12/10/20 [History] Past Medical History HEENT History: Reports: Impaired Vision Cardiovascular History: Reports: None Respiratory History: Reports: Asthma Gastrointestinal History: Reports: Diverticulosis Genitourinary History: Reports: UTI, Recurrent Musculoskeletal History: Reports: None Neurological History: Reports: None Psychiatric History: Reports: None Endocrine/Metabolic History: Reports: None Hematologic History: Reports: None Immunologic History: Reports: None Oncologic (Cancer) History: Reports: None Dermatologic History: Reports: None - Infectious Disease History Infectious Disease History: Reports: Chicken Pox, Measles, Mumps - Past Surgical History Female Surgical History: Reports: Other (See Below) ([facility]) Other Endocrine Surgeries/Procedures: removed half of thyroid from enlarged thyroid Social & Family History - Family History Family Medical History: No Pertinent Family History - Caffeine Use Caffeine Use: Reports: Coffee - Recreational Drug Use Recreational Drug Use: No H&P Review of Systems - Review of Systems: Review Of Systems: See Below General: Reports: No Symptoms. Denies: Fever, Chills, Malaise, Weakness, Fatigu e HEENT: Reports: Post Nasal Drip (Intermittently has postnasal drip). Denies: Headaches, Sinus Congestion, Sore Throat, Vertigo Pulmonary: Reports: No Symptoms. Denies: Shortness of Breath, Cough, Sputum, Hemoptysis Cardiovascular: Reports: No Symptoms. Denies: Chest Pain, Palpitations, Lightheadedness, Syncope Gastrointestinal: Reports: No Symptoms. Denies: Abdominal Pain, Black Stool, Bloody Stool, Constipation, Nausea, Vomiting Genitourinary: Reports: No Symptoms. Denies: Dysuria, Frequency, Burning Musculoskeletal: Reports: Joint Pain (Right hip pain) Psychiatric: Reports: No Symptoms Neurological: Reports: No Symptoms Hematologic/Lymphatic: Reports: No Symptoms Immunologic: Reports: No Symptoms Exam - Exam Exam: See Below - Vital Signs Vital Signs: Last Vital Signs Temp 97.8 F 12/10/20 11:13 Pulse 81 12/10/20 11:13 Resp 18 12/10/20 11:13 BP 141/80 H 12/10/20 11:13 Pulse Ox 96 12/10/20 11:13 Weight: 45.813 kg - Exam Quality Assessment: DVT Prophylaxis (SCDs and Lovenox). No: Supplemental Oxygen General: Alert, Oriented, Cooperative HEENT: Conjunctiva Clear, Mucosa Moist & [place], Posterior Pharynx Clear Lungs: Clear to Auscultation, Normal Respiratory Effort Cardiovascular: Regular Rate, Regular Rhythm, Normal S1, Normal S2 GI/Abdominal Exam: Normal Bowel Sounds, Soft, Non-Tender Back Exam: Normal Inspection, Full Range of Motion Extremities: Normal Inspection, Normal Range of Motion, Leg Pain (Leg pain noted on the right side with any type of movement especially palpation to the right hip) Skin: Warm, Dry. No: Ecchymosis (No significant bruising noted but unable to look at posterior hip due to pain in visit), Wound Neuro Extensive - Mental Status: Alert, Oriented x3 Neuro Extensive - Motor, Sensory, Reflexes: CN II-XII Intact, Normal Gait, Normal Reflexes Psychiatric: Alert, Normal Affect, Normal Mood - Patient Data Lab Results Last 24 hrs: Laboratory Results - last 24 hr 12/10/20 12/10/20 12/10/20 Range/Units 13:45 13:45 13:45 WBC 11.11 H (4.0-11.0) K/uL RBC 4.28 L (4.30-5.90) M/uL Hgb 12.7 (12.0-16.0) g/dL Hct 39.0 (36.0-46.0) % MCV 91.1 (80.0-98.0) fL MCH 29.7 (27.0-32.0) pg MCHC 32.6 (31.0-37.0) g/dL RDW Std Deviation 41.2 (28.0-62.0) fl RDW Coeff of Hammad 12 (11.0-15.0) % Plt Count 180 (150-400) K/uL MPV 9.10 (7.40-12.00) fL Neut % (Auto) 87.7 H (48.0-80.0) % Lymph % (Auto) 6.8 L (16.0-40.0) % [place] % (Auto) 5.2 (0.0-15.0) % Eos % (Auto) 0.2 (0.0-7.0) % Baso % (Auto) 0.1 (0.0-1.5) % Neut # (Auto) 9.8 H (1.4-5.7) K/uL Lymph # (Auto) 0.8 (0.6-2.4) K/uL [place] # (Auto) 0.6 (0.0-0.8) K/uL Eos # (Auto) 0.0 (0.0-0.7) K/uL Baso # (Auto) 0.0 (0.0-0.1) K/uL Nucleated RBC % 0.0 /100WBC Nucleated RBCs # 0 K/uL INR 1.03 Sodium 141 (136-145) mmol/L Potassium 3.9 (3.5-5.1) mmol/L Chloride 109 H (98-107) mmol/L Carbon Dioxide 24.9 (21.0-32.0) mmol/L BUN 17 (7.0-18.0) mg/dL Creatinine 0.7 (0.6-1.0) mg/dL Est Cr Clr Drug Dosing TNP Estimated GFR (MDRD) > 60.0 ml/min Glucose 131 H (74-106) mg/dL Calcium 8.6 (8.5-10.1) mg/dL Total Bilirubin 0.4 (0.2-1.0) mg/dL AST 17 (15-37) IU/L ALT 21 (14-63) IU/L Alkaline Phosphatase 81 (46-116) U/L Total Protein 6.7 (6.4-8.2) g/dL Albumin 3.4 (3.4-5.0) g/dL Globulin 3.3 (2.6-4.0) g/dL Albumin/Globulin Ratio 1.0 (0.9-1.6) Urine Color Urine Appearance Urine pH (5.0-8.0) Ur Specific [place] (1.001-1.035) Urine Protein (NEGATIVE) mg/dL Urine Glucose (UA) (NEGATIVE) mg/dL Urine Ketones (NEGATIVE) mg/dL Urine Occult Blood (NEGATIVE) Urine Nitrite (NEGATIVE) Urine Bilirubin (NEGATIVE) Urine Urobilinogen (<2.0) EU/dL Ur Leukocyte Esterase (NEGATIVE) Urine RBC (0-2/HPF) Urine WBC (0-5/HPF) Ur Epithelial Cells (NONE-FEW) Amorphous Sediment (NEGATIVE) Urine Bacteria (NEGATIVE) Urine Mucus (NONE-MOD) SARS-CoV-2 RNA (MADISYN) (NEGATIVE) 12/10/20 12/10/20 Range/Units 14:07 15:20 WBC (4.0-11.0) K/uL RBC (4.30-5.90) M/uL Hgb (12.0-16.0) g/dL Hct (36.0-46.0) % MCV (80.0-98.0) fL MCH (27.0-32.0) pg MCHC (31.0-37.0) g/dL RDW Std Deviation (28.0-62.0) fl RDW Coeff of Hammad (11.0-15.0) % Plt Count (150-400) K/uL MPV (7.40-12.00) fL Neut % (Auto) (48.0-80.0) % Lymph % (Auto) (16.0-40.0) % [place] % (Auto) (0.0-15.0) % Eos % (Auto) (0.0-7.0) % Baso % (Auto) (0.0-1.5) % Neut # (Auto) (1.4-5.7) K/uL Lymph # (Auto) (0.6-2.4) K/uL [place] # (Auto) (0.0-0.8) K/uL Eos # (Auto) (0.0-0.7) K/uL Baso # (Auto) (0.0-0.1) K/uL Nucleated RBC % /100WBC Nucleated RBCs # K/uL INR Sodium (136-145) mmol/L Potassium (3.5-5.1) mmol/L Chloride (98-107) mmol/L Carbon Dioxide (21.0-32.0) mmol/L BUN (7.0-18.0) mg/dL Creatinine (0.6-1.0) mg/dL Est Cr Clr Drug Dosing Estimated GFR (MDRD) ml/min Glucose (74-106) mg/dL Calcium (8.5-10.1) mg/dL Total Bilirubin (0.2-1.0) mg/dL AST (15-37) IU/L ALT (14-63) IU/L Alkaline Phosphatase (46-116) U/L Total Protein (6.4-8.2) g/dL Albumin (3.4-5.0) g/dL Globulin (2.6-4.0) g/dL Albumin/Globulin Ratio (0.9-1.6) Urine Color YELLOW Urine Appearance CLEAR Urine pH 5.5 (5.0-8.0) Ur Specific [place] >= 1.030 (1.001-1.035) Urine Protein NEGATIVE (NEGATIVE) mg/dL Urine Glucose (UA) NEGATIVE (NEGATIVE) mg/dL Urine Ketones NEGATIVE (NEGATIVE) mg/dL Urine Occult Blood TRACE-INTACT H (NEGATIVE) Urine Nitrite NEGATIVE (NEGATIVE) Urine Bilirubin NEGATIVE (NEGATIVE) Urine Urobilinogen 0.2 (<2.0) EU/dL Ur Leukocyte Esterase TRACE H (NEGATIVE) Urine RBC 2-3 (0-2/HPF) Urine WBC 2-4 (0-5/HPF) Ur Epithelial Cells RARE (NONE-FEW) Amorphous Sediment FEW (NEGATIVE) Urine Bacteria FEW (NEGATIVE) Urine Mucus RARE (NONE-MOD) SARS-CoV-2 RNA (MADISYN) NEGATIVE (NEGATIVE) Result Diagrams: 12/10/20 13:45 12/10/20 13:45 Sepsis Event Note - Evaluation Sepsis Screening Result: No Definite Risk - Focused Exam Vital Signs: Vital Signs Temp Pulse Resp BP Pulse Ox 12/10/20 11:13 97.8 F 81 18 141/80 H 96 - Problem List (1) Intertrochanteric fracture of right hip SNOMED Code(s): 664733626, 69330200408295910 ICD Code: S72.141A - DISPLACED INTERTROCHANTERIC FRACTURE OF RIGHT FEMUR, INIT Status: Acute Current Visit: Yes (2) Fall SNOMED Code(s): 2536569, 051007910 ICD Code: W19.XXXA - UNSPECIFIED FALL, INITIAL ENCOUNTER Status: Acute Current Visit: Yes (3) UTI (urinary tract infection) SNOMED Code(s): 32862498 ICD Code: N39.0 - URINARY TRACT INFECTION, SITE NOT SPECIFIED Status: Acute Current Visit: No Qualifiers: Urinary tract infection type: site unspecified Hematuria presence: without hematuria Qualified Code(s): N39.0 - Urinary tract infection, site not specified (4) Asthma SNOMED Code(s): 935281984 ICD Code: J45.909 - UNSPECIFIED ASTHMA, UNCOMPLICATED Status: Chronic Current Visit: Yes Qualifiers: Asthma severity: mild Asthma persistence: intermittent Asthma complication type: uncomplicated Qualified Code(s): J45.20 - Mild intermittent asthma, uncomplicated Problem List Initiated/Reviewed/Updated: Yes Orders Last 24hrs: Active Orders 24 hr Category Date Time Status Admission Status [Patient Status] [ADT] Stat ADT 12/10/20 15:26 Active Antiembolic Devices [RC] PER UNIT ROUTINE Care 12/10/20 16:30 Ordered Bedrest [RC] ASDIRECTED Care 12/10/20 16:35 Ordered Intake and Output [RC] QSHIFT Care 12/10/20 16:29 Ordered Notify Provider Consults [RC] ASDIRECTED Care 12/10/20 16:32 Ordered Oxygen Therapy [RC] PRN Care 12/10/20 16:29 Ordered RT Aerosol Therapy [RC] ASDIRECTED Care 12/10/20 16:31 Ordered VTE/DVT Education [RC] PER UNIT ROUTINE Care 12/10/20 16:29 Ordered Vital Signs [RC] Q4H Care 12/10/20 16:29 Ordered Consult to Physician [CONS] Routine Cons 12/10/20 16:30 Ordered NPO [Nothing Per Oral Diet] [DIET] Diet 12/12/20 Breakfast Ordered Regular Diet [DIET] Diet 12/10/20 Lunch Active BASIC METABOLIC PANEL,BMP [CHEM] AM Lab 12/11/20 05:11 Ordered BASIC METABOLIC PANEL,BMP [CHEM] AM Lab 12/12/20 05:11 Ordered BASIC METABOLIC PANEL,BMP [CHEM] AM Lab 12/13/20 05:11 Ordered BASIC METABOLIC PANEL,BMP [CHEM] AM Lab 12/14/20 05:11 Ordered BASIC METABOLIC PANEL,BMP [CHEM] AM Lab 12/15/20 05:11 Ordered CBC WITH AUTO DIFF [HEME] AM Lab 12/11/20 05:11 Ordered CBC WITH AUTO DIFF [HEME] AM Lab 12/12/20 05:11 Ordered CBC WITH AUTO DIFF [HEME] AM Lab 12/13/20 05:11 Ordered CBC WITH AUTO DIFF [HEME] AM Lab 12/14/20 05:11 Ordered CBC WITH AUTO DIFF [HEME] AM Lab 12/15/20 05:11 Ordered CULTURE URINE [RM] Urgent Lab 12/10/20 15:20 Received MAGNESIUM [CHEM] AM Lab 12/11/20 05:11 Ordered MAGNESIUM [CHEM] AM Lab 12/12/20 05:11 Ordered MAGNESIUM [CHEM] AM Lab 12/13/20 05:11 Ordered MAGNESIUM [CHEM] AM Lab 12/14/20 05:11 Ordered MAGNESIUM [CHEM] AM Lab 12/15/20 05:11 Ordered Acetaminophen [TylenoL] Med 12/10/20 16:29 Ordered 650 mg PO Q4H PRN Acetaminophen/HYDROcodone [[place] 325-5 MG] Med 12/10/20 16:29 Ordered 1 tab PO Q4H PRN Albuterol [Proventil Neb Soln] Med 12/10/20 16:30 Ordered 2.5 mg NEB Q2H PRN Docusate Sodium [Colace] Med 12/10/20 21:00 Ordered 100 mg PO BID Lactated Ringers [Ringers, Lactated] 1,000 ml Med 12/10/20 14:15 Active IV ASDIRECTED Morphine Med 12/10/20 16:29 Ordered 2 mg IVPUSH Q3H PRN Ondansetron [Zofran] Med 12/10/20 16:30 Ordered 4 mg IVPUSH Q4H PRN Sodium Chloride 0.9% [Saline Flush] Med 12/10/20 16:30 Ordered 2.5 ml FLUSH ASDIRECTED PRN cefTRIAXone [Rocephin in Dextrose,Iso-Osm 1 GM/50 ML] 1 Med 12/10/20 16:45 Ordered gm Premix Bag 1 bag IV Q24H Saline Lock Insert [OM.PC] Routine Oth 12/10/20 16:29 Ordered Sequential Compression Device [OM.PC] Per Unit Routine Oth 12/10/20 16:29 Ordered Resuscitation Status Routine Resus Stat 12/10/20 16:29 Ordered Medication Orders Acetaminophen (Tylenol) 650 mg PO Q4H PRN PRN Reason: Pain (Mild 1-3)/fever Hydrocodone Bitart/Acetaminophen ([place] 325-5 Mg) 1 tab PO Q4H PRN PRN Reason: Pain (moderate 4-6) Albuterol (Proventil Neb Soln) 2.5 mg NEB Q2H PRN PRN Reason: Shortness Of Breath/wheezing Docusate Sodium (Colace) 100 mg PO BID LEILANI Lactated Ringer's (Ringers, Lactated) 1,000 mls @ 75 mls/hr IV ASDIRECTED LEILANI Last Admin: 12/10/20 14:22 Dose: 75 mls/hr Documented by: [email or web address] Ceftriaxone Sodium/Dextrose 1 (gm/ Premix) 50 mls @ 100 mls/hr IV Q24H LEILANI Morphine Sulfate (Morphine) 2 mg IVPUSH Q3H PRN PRN Reason: Pain (severe 7-10) Ondansetron HCl (Zofran) 4 mg IVPUSH Q4H PRN PRN Reason: Nausea Sodium Chloride (Saline Flush) 2.5 ml FLUSH ASDIRECTED PRN PRN Reason: Keep Vein Open Assessment/Plan Comment:: This 80-year-old female admitted with right intertrochanteric hip fracture after mechanical fall 1. Right intertrochanteric hip fracture -Dr. Corbin orthopedics consulted -Plan is for OR Sunday at 9 AM -N.p.o. Sunday at midnight -Tylenol and [place] as needed pain -Morphine as needed pain -PT to be consulted postoperatively -Singer catheter in place -Bedrest - Bowel regimen 2. UTI -UC pending -Rocephin 1 g IV daily 3. Asthma -Albuterol inhaler as needed VTE prophylaxis: Lovenox to be stopped 24 hours prior to surgery Disposition: 3 to 4 days pending improvement I did speak with Bambi and Casey, patient's daughter and son. They were updated on admission and plans moving forward. We also did discuss potential for [facility] need at discharge. They would like to see how she does and the hope would be she could return home with family support as well as home health and physical therapy. But they are open to [facility] facility if needed for short-term rehab. This was also discussed with patient and she is agreeable with plan.
[2020-12-10] MEDS: Morphine 2 MG/ML SYRINGE IVPUSH PRN ×2 (16:52→21:46)
[2020-12-10] MEDS ORDERED: Bisacodyl 10 MG Supp RECTAL PRN (17:01)
[2020-12-10] MEDS: cefTRIAXone 1 GM in Premix Bag 1 BAG IV SCH (17:08)
[2020-12-10] MEDS: Lactated Ringers 1,000 ML IV SCH (17:39)
[2020-12-10] MEDS: Enoxaparin 40 MG/0.4 ML Syringe SUBCUT SCH (17:40)
[2020-12-10] MEDS: Docusate Sodium 100 MG Cap PO SCH (21:41)
[2020-12-11 06:51] LABS: BLOOD UREA NITROGEN,BUN 16 mg/dL (7.0-18.0); CARBON DIOXIDE,CO2 25.8 mmol/L (21.0-32.0); CHLORIDE,CL 104 mmol/L (98-107); GLUCOSE RANDOM 122 mg/dL (74-106); POTASSIUM,K 3.9 mmol/L (3.5-5.1); SODIUM,NA 139 mmol/L (136-145)
[2020-12-11] MEDS: Morphine 2 MG/ML SYRINGE IVPUSH PRN ×4 (08:25→22:41)
[2020-12-11] MEDS: Docusate Sodium 100 MG Cap PO SCH ×2 (09:18→21:03)
--- NOTE | 2020-12-11 10:45 | PCM.PN ---
- General Info Date of Service: 12/11/20 - Review of Systems Systems Review Comment:: pain controlled - Patient Data Vitals - Most Recent: Last Vital Signs Temp 36.1 C 12/11/20 08:00 Pulse 79 12/11/20 08:00 Resp 18 12/11/20 08:00 BP 105/59 L 12/11/20 08:00 Pulse Ox 94 L 12/11/20 08:00 Weight - Most Recent: 53.5 kg I&O - Last 24 Hours: Intake & Output 12/10/20 12/11/20 12/11/20 22:59 06:59 14:59 Intake Total 838 Output Total 250 500 Balance -250 338 Lab Results Last 24 Hours: Laboratory Results - last 24 hr 12/10/20 12/10/20 12/10/20 Range/Units 13:45 13:45 13:45 WBC 11.11 H (4.0-11.0) K/uL RBC 4.28 L (4.30-5.90) M/uL Hgb 12.7 (12.0-16.0) g/dL Hct 39.0 (36.0-46.0) % MCV 91.1 (80.0-98.0) fL MCH 29.7 (27.0-32.0) pg MCHC 32.6 (31.0-37.0) g/dL RDW Std Deviation 41.2 (28.0-62.0) fl RDW Coeff of Hammad 12 (11.0-15.0) % Plt Count 180 (150-400) K/uL MPV 9.10 (7.40-12.00) fL Neut % (Auto) 87.7 H (48.0-80.0) % Lymph % (Auto) 6.8 L (16.0-40.0) % [place] % (Auto) 5.2 (0.0-15.0) % Eos % (Auto) 0.2 (0.0-7.0) % Baso % (Auto) 0.1 (0.0-1.5) % Neut # (Auto) 9.8 H (1.4-5.7) K/uL Lymph # (Auto) 0.8 (0.6-2.4) K/uL [place] # (Auto) 0.6 (0.0-0.8) K/uL Eos # (Auto) 0.0 (0.0-0.7) K/uL Baso # (Auto) 0.0 (0.0-0.1) K/uL Nucleated RBC % 0.0 /100WBC Nucleated RBCs # 0 K/uL INR 1.03 Sodium 141 (136-145) mmol/L Potassium 3.9 (3.5-5.1) mmol/L Chloride 109 H (98-107) mmol/L Carbon Dioxide 24.9 (21.0-32.0) mmol/L BUN 17 (7.0-18.0) mg/dL Creatinine 0.7 (0.6-1.0) mg/dL Est Cr Clr Drug Dosing TNP Estimated GFR (MDRD) > 60.0 ml/min Glucose 131 H (74-106) mg/dL Calcium 8.6 (8.5-10.1) mg/dL Magnesium (1.8-2.4) mg/dL Total Bilirubin 0.4 (0.2-1.0) mg/dL AST 17 (15-37) IU/L ALT 21 (14-63) IU/L Alkaline Phosphatase 81 (46-116) U/L Total Protein 6.7 (6.4-8.2) g/dL Albumin 3.4 (3.4-5.0) g/dL Globulin 3.3 (2.6-4.0) g/dL Albumin/Globulin Ratio 1.0 (0.9-1.6) Urine Color Urine Appearance Urine pH (5.0-8.0) Ur Specific [place] (1.001-1.035) Urine Protein (NEGATIVE) mg/dL Urine Glucose (UA) (NEGATIVE) mg/dL Urine Ketones (NEGATIVE) mg/dL Urine Occult Blood (NEGATIVE) Urine Nitrite (NEGATIVE) Urine Bilirubin (NEGATIVE) Urine Urobilinogen (<2.0) EU/dL Ur Leukocyte Esterase (NEGATIVE) Urine RBC (0-2/HPF) Urine WBC (0-5/HPF) Ur Epithelial Cells (NONE-FEW) Amorphous Sediment (NEGATIVE) Urine Bacteria (NEGATIVE) Urine Mucus (NONE-MOD) SARS-CoV-2 RNA (MADISYN) (NEGATIVE) 12/10/20 12/10/20 12/11/20 Range/Units 14:07 15:20 05:49 WBC 6.98 (4.0-11.0) K/uL RBC 4.11 L (4.30-5.90) M/uL Hgb 12.1 (12.0-16.0) g/dL Hct 37.7 (36.0-46.0) % MCV 91.7 (80.0-98.0) fL MCH 29.4 (27.0-32.0) pg MCHC 32.1 (31.0-37.0) g/dL RDW Std Deviation 42.3 (28.0-62.0) fl RDW Coeff of Hammad 13 (11.0-15.0) % Plt Count 171 (150-400) K/uL MPV 9.50 (7.40-12.00) fL Neut % (Auto) 69.4 (48.0-80.0) % Lymph % (Auto) 16.9 (16.0-40.0) % [place] % (Auto) 12.3 (0.0-15.0) % Eos % (Auto) 1.1 (0.0-7.0) % Baso % (Auto) 0.3 (0.0-1.5) % Neut # (Auto) 4.8 (1.4-5.7) K/uL Lymph # (Auto) 1.2 (0.6-2.4) K/uL [place] # (Auto) 0.9 H (0.0-0.8) K/uL Eos # (Auto) 0.1 (0.0-0.7) K/uL Baso # (Auto) 0.0 (0.0-0.1) K/uL Nucleated RBC % 0.0 /100WBC Nucleated RBCs # 0 K/uL INR Sodium (136-145) mmol/L Potassium (3.5-5.1) mmol/L Chloride (98-107) mmol/L Carbon Dioxide (21.0-32.0) mmol/L BUN (7.0-18.0) mg/dL Creatinine (0.6-1.0) mg/dL Est Cr Clr Drug Dosing Estimated GFR (MDRD) ml/min Glucose (74-106) mg/dL Calcium (8.5-10.1) mg/dL Magnesium (1.8-2.4) mg/dL Total Bilirubin (0.2-1.0) mg/dL AST (15-37) IU/L ALT (14-63) IU/L Alkaline Phosphatase (46-116) U/L Total Protein (6.4-8.2) g/dL Albumin (3.4-5.0) g/dL Globulin (2.6-4.0) g/dL Albumin/Globulin Ratio (0.9-1.6) Urine Color YELLOW Urine Appearance CLEAR Urine pH 5.5 (5.0-8.0) Ur Specific [place] >= 1.030 (1.001-1.035) Urine Protein NEGATIVE (NEGATIVE) mg/dL Urine Glucose (UA) NEGATIVE (NEGATIVE) mg/dL Urine Ketones NEGATIVE (NEGATIVE) mg/dL Urine Occult Blood TRACE-INTACT H (NEGATIVE) Urine Nitrite NEGATIVE (NEGATIVE) Urine Bilirubin NEGATIVE (NEGATIVE) Urine Urobilinogen 0.2 (<2.0) EU/dL Ur Leukocyte Esterase TRACE H (NEGATIVE) Urine RBC 2-3 (0-2/HPF) Urine WBC 2-4 (0-5/HPF) Ur Epithelial Cells RARE (NONE-FEW) Amorphous Sediment FEW (NEGATIVE) Urine Bacteria FEW (NEGATIVE) Urine Mucus RARE (NONE-MOD) SARS-CoV-2 RNA (MADISYN) NEGATIVE (NEGATIVE) 12/11/20 Range/Units 05:49 WBC (4.0-11.0) K/uL RBC (4.30-5.90) M/uL Hgb (12.0-16.0) g/dL Hct (36.0-46.0) % MCV (80.0-98.0) fL MCH (27.0-32.0) pg MCHC (31.0-37.0) g/dL RDW Std Deviation (28.0-62.0) fl RDW Coeff of Hammad (11.0-15.0) % Plt Count (150-400) K/uL MPV (7.40-12.00) fL Neut % (Auto) (48.0-80.0) % Lymph % (Auto) (16.0-40.0) % [place] % (Auto) (0.0-15.0) % Eos % (Auto) (0.0-7.0) % Baso % (Auto) (0.0-1.5) % Neut # (Auto) (1.4-5.7) K/uL Lymph # (Auto) (0.6-2.4) K/uL [place] # (Auto) (0.0-0.8) K/uL Eos # (Auto) (0.0-0.7) K/uL Baso # (Auto) (0.0-0.1) K/uL Nucleated RBC % /100WBC Nucleated RBCs # K/uL INR Sodium 139 (136-145) mmol/L Potassium 3.9 (3.5-5.1) mmol/L Chloride 104 (98-107) mmol/L Carbon Dioxide 25.8 (21.0-32.0) mmol/L BUN 16 (7.0-18.0) mg/dL Creatinine 0.7 (0.6-1.0) mg/dL Est Cr Clr Drug Dosing 53.23 Estimated GFR (MDRD) > 60.0 ml/min Glucose 122 H (74-106) mg/dL Calcium 8.7 (8.5-10.1) mg/dL Magnesium 1.9 (1.8-2.4) mg/dL Total Bilirubin (0.2-1.0) mg/dL AST (15-37) IU/L ALT (14-63) IU/L Alkaline Phosphatase (46-116) U/L Total Protein (6.4-8.2) g/dL Albumin (3.4-5.0) g/dL Globulin (2.6-4.0) g/dL Albumin/Globulin Ratio (0.9-1.6) Urine Color Urine Appearance Urine pH (5.0-8.0) Ur Specific [place] (1.001-1.035) Urine Protein (NEGATIVE) mg/dL Urine Glucose (UA) (NEGATIVE) mg/dL Urine Ketones (NEGATIVE) mg/dL Urine Occult Blood (NEGATIVE) Urine Nitrite (NEGATIVE) Urine Bilirubin (NEGATIVE) Urine Urobilinogen (<2.0) EU/dL Ur Leukocyte Esterase (NEGATIVE) Urine RBC (0-2/HPF) Urine WBC (0-5/HPF) Ur Epithelial Cells (NONE-FEW) Amorphous Sediment (NEGATIVE) Urine Bacteria (NEGATIVE) Urine Mucus (NONE-MOD) SARS-CoV-2 RNA (MADISYN) (NEGATIVE) Med Orders - Current: Current Medications Acetaminophen (Tylenol) 650 mg PO Q4H PRN PRN Reason: Pain (Mild 1-3)/fever Hydrocodone Bitart/Acetaminophen ([place] 325-5 Mg) 1 tab PO Q4H PRN PRN Reason: Pain (moderate 4-6) Last Admin: 12/11/20 00:13 Dose: 1 tab Documented by: Albuterol (Proventil Neb Soln) 2.5 mg NEB Q2H PRN PRN Reason: Shortness Of Breath/wheezing Bisacodyl (Dulcolax) 10 mg RECTAL DAILY PRN PRN Reason: if no BM after 2 days Docusate Sodium (Colace) 100 mg PO BID [facility] Last Admin: 12/11/20 09:18 Dose: Not Given Documented by: Enoxaparin Sodium (Lovenox) 40 mg SUBCUT Q24H [facility] Stop: 12/11/20 17:31 Last Admin: 12/10/20 17:40 Dose: 40 mg Documented by: Ceftriaxone Sodium/Dextrose 1 (gm/ Premix) 50 mls @ 100 mls/hr IV Q24H [facility] Last Admin: 12/10/20 17:08 Dose: 100 mls/hr Documented by: Lactated Ringer's (Ringers, Lactated) 1,000 mls @ 50 mls/hr IV Q20H [facility] Last Admin: 12/10/20 17:39 Dose: 50 mls/hr Documented by: Morphine Sulfate (Morphine) 2 mg IVPUSH Q3H PRN PRN Reason: Pain (severe 7-10) Last Admin: 12/11/20 08:25 Dose: 2 mg Documented by: Ondansetron HCl (Zofran) 4 mg IVPUSH Q4H PRN PRN Reason: Nausea Sodium Chloride (Saline Flush) 2.5 ml FLUSH ASDIRECTED PRN PRN Reason: Keep Vein Open Discontinued Medications Lactated Ringer's (Ringers, Lactated) 1,000 mls @ 75 mls/hr IV ASDIRECTED [facility] Last Admin: 12/10/20 14:22 Dose: 75 mls/hr Documented by: Morphine Sulfate (Morphine) 2 mg IVPUSH ONETIME ONE Stop: 12/10/20 12:28 Last Admin: 12/10/20 12:27 Dose: 2 mg Documented by: Morphine Sulfate (Morphine) 2 mg IVPUSH ONETIME ONE Stop: 12/10/20 14:16 Last Admin: 12/10/20 14:23 Dose: 2 mg Documented by: - Exam General: Alert, Oriented Neck: Supple Lungs: Clear to Auscultation, Normal Respiratory Effort Cardiovascular: Regular Rate, Regular Rhythm GI/Abdominal Exam: Normal Bowel Sounds, Soft, Non-Tender, No Distention Extremities: No Pedal Edema Skin: Warm, Dry, Intact Neurological: No New Focal Deficit Sepsis Event Note - Evaluation Sepsis Screening Result: No Definite Risk - Focused Exam Vital Signs: Vital Signs Temp Pulse Resp BP Pulse Ox 12/11/20 08:00 36.1 C 79 18 105/59 L 94 L 12/11/20 04:00 36.9 C 78 18 105/62 95 12/11/20 00:11 36.9 C 88 18 116/57 L 95 - Problem List Review Problem List Initiated/Reviewed/Updated: Yes - Plan Plan:: This 80-year-old female admitted with right intertrochanteric hip fracture after mechanical fall 1. Right intertrochanteric hip fracture -Dr. Corbin orthopedics consulted -Plan is for OR Sunday at 9 AM -N.p.o. Sunday at midnight -Tylenol and [place] as needed pain 2. UTI -UC pending -Rocephin 1 g IV daily 3. Asthma -Albuterol inhaler as needed VTE prophylaxis: Lovenox to be stopped 24 hours prior to surgery Disposition: 3 to 4 days pending improvement .
[2020-12-11] MEDS: Lactated Ringers 1,000 ML IV SCH (13:45)
[2020-12-11] MEDS: cefTRIAXone 1 GM in Premix Bag 1 BAG IV SCH (16:41)
[2020-12-11] MEDS: Enoxaparin 40 MG/0.4 ML Syringe SUBCUT SCH (16:41)
[2020-12-12] MEDS ORDERED: Bupivacaine 0.5% 10 ML SDV ONE ×3 (02:04→10:14)
[2020-12-12 06:53] LABS: BLOOD UREA NITROGEN,BUN 15 mg/dL (7.0-18.0); CARBON DIOXIDE,CO2 28.3 mmol/L (21.0-32.0); CHLORIDE,CL 105 mmol/L (98-107); GLUCOSE RANDOM 115 mg/dL (74-106); POTASSIUM,K 4.3 mmol/L (3.5-5.1); SODIUM,NA 140 mmol/L (136-145)
[2020-12-12] MEDS ORDERED: Phenylephrine 1% 10 MG/ML SDV ONE (07:18)
[2020-12-12] MEDS ORDERED: Ondansetron 4 MG/2 ML SDV ONE (07:20)
[2020-12-12] MEDS ORDERED: Ketamine 500 mg/10 ML MDV ONE (07:21)
[2020-12-12] MEDS ORDERED: Midazolam 1 MG/ML 2 ML SDV ONE (07:21)
[2020-12-12] MEDS ORDERED: fentaNYL 100 MCG/2 ML SDV ONE (07:23)
[2020-12-12] MEDS: Morphine 2 MG/ML SYRINGE IVPUSH PRN ×2 (08:25→20:23)
[2020-12-12] MEDS: Docusate Sodium 100 MG Cap PO SCH ×3 (08:28→20:35)
[2020-12-12] MEDS ORDERED: Sodium Chloride 0.9% 20 ML ONE (08:29)
[2020-12-12] MEDS ORDERED: ceFAZolin 1 GM Vial ONE (08:29)
[2020-12-12] MEDS ORDERED: Propofol 200 MG/20 ML SDV ONE (10:52)
[2020-12-12] MEDS ORDERED: Bupivacaine 0.5% 30 ML SDV ONE (11:31)
--- NOTE | 2020-12-12 12:04 | PCM.OPNOTE ---
- General Post-Op/Procedure Note Date of Surgery/Procedure: 12/12/20 Operative Procedure(s): Open reduction and internal fixation of right intertrochanteric hip fracture Findings: Right minimally displaced intertrochanteric hip fracture Pre Op Diagnosis: Right minimally displaced intertrochanteric hip fracture Post-Op Diagnosis: Right minimally displaced intertrochanteric hip fracture Anesthesia Technique: Spinal Primary Surgeon: Claude Corbin Pathology: None EBL in mLs: 100 Complications: None Condition: Good Free Text/Narrative:: Patient is an 80-year-old female who fell in her home on December 10. She was seen in the emergency room and diagnosed with a minimally displaced intertrochanteric hip fracture. Patient was admitted by the hospital service and medically cleared for surgery. The risk and benefits of surgery were discussed with the patient and she consented to proceed. Patient was taken to the operating room. After adequate spinal anesthesia, she was transferred to the fracture table in a supine position. The right lower extremity was placed in a boot for traction and the left lower extremities placed in a well leg lott. Minimal traction was required because the fracture was minimally displaced. C arm views prior to prepping confirm that the fracture was then excellent position and reduced. The right buttock hip and thigh were prepped and draped in the usual sterile manner. A longitudinal incision was made in the subtrochanteric region with a skin knife. Subcutaneous tissue incised electrocautery. The iliotibial band was split between the fibers longitudinally. The vastus lateralis was split with electrocautery exposing the lateral cortex. A drill was used to make a hole in the lateral cortex and then the tract for the guidepin was made with a drill drilling through the calcar up into the center center position of the head. The center center position in the head was confirmed with a lateral view, the drill removed, and a guidepin placed. The guidepin position was confirmed with 2 views on C arm. The guidepin was measured at 95 mm in length. The angle for the sideplate was measured at 140 degrees. The lag screw was drilled to the appropriate depth. The [employer] [place] sliding hip screw system was used. The lag screw was inserted to the appropriate depth. The plate was then placed over the lag screw and impacted to bone. A 2 hole 140 degree plate was used and the 2 screws were drilled bicortically and inserted. C-arm confirmed excellent position of the plate and screws. The lag screw position was confirmed the center center with AP and lateral views of the C arm. Wounds were irrigated. The iliotibial band was closed with interrupted and running #1 Vicryl suture. Subcutaneous tissue was closed with interrupted 2-0 Vicryl suture. Skin was closed with Monocryl running subcuticular suture. Sterile dressing was applied and patient was taken off to the fracture table and taken to the recovery room in stable condition. Pain management: Local anesthetic was injected into the incision and deep along the plate. Patient should wean from opioids to acetaminophen or tramadol as soon as possible. Patient was on antibiotics preoperatively and will continue on the same antibiotics per the hospitalist service. Venous thromboembolism prophylaxis: Recommend discontinuing low molecular weight heparin and switching to aspirin enteric-coated 325 mg daily for 90 days because the patient has no personal history of venous thromboembolic events. Restrictions: Patient is weightbearing as tolerated on her right lower extremity and has no hip dislocation restrictions. Intake & Output 12/11/20 12/12/20 12/12/20 22:59 06:59 14:59 Intake Total 1064 220 Output Total 800 850 Balance 264 -303
--- NOTE | 2020-12-12 13:36 | PCM.POSTAN ---
POST ANESTHESIA ASSESSMENT - MENTAL STATUS Mental Status: Alert - VITAL SIGNS Vital Signs: Last Vital Signs Temp 37.2 C 12/12/20 11:52 Pulse 79 12/12/20 13:32 Resp 10 L 12/12/20 13:32 BP 124/71 12/12/20 13:32 Pulse Ox 95 12/12/20 13:32 - RESPIRATORY Respiratory Status: Respiratory Rate WNL, Supplemental Oxygen - CARDIOVASCULAR CV Status: Pulse Rate WNL - GASTROINTESTINAL GI Status: No Symptoms - POST OP HYDRATION Hydration Status: Adequate & Stable
--- NOTE | 2020-12-12 14:05 | PCM.PN ---
<Candice Barkley - Last Filed: 12/12/20 14:00> - General Info Date of Service: 12/12/20 Admission Dx/Problem (Free Text): Right intertrochanteric hip fracture Subjective Update: Patient is an 80-year-old female with recent hip fracture, scheduled for ORIF today performed by Dr. Corbin in orthopedics. Is doing well this morning however was slightly anxious regarding surgery as expected. Denied any overnight event. This morning shared that her pain has been well controlled, has remained n.p.o. prior to procedure, and has Singer in place which is draining appropriately, denying any CVA tenderness or suprapubic tenderness, fever, chills, shortness of breath. Functional Status: Reports: Pain Controlled. Denies: Tolerating Diet - Review of Systems General: Reports: No Symptoms HEENT: Reports: No Symptoms Pulmonary: Reports: No Symptoms Cardiovascular: Reports: No Symptoms Gastrointestinal: Reports: No Symptoms Genitourinary: Reports: No Symptoms Musculoskeletal: Reports: No Symptoms Skin: Reports: No Symptoms Neurological: Reports: No Symptoms Psychiatric: Reports: No Symptoms - Patient Data Vitals - Most Recent: Last Vital Signs Temp 99.0 F 12/12/20 11:52 Pulse 81 12/12/20 13:37 Resp 13 12/12/20 13:37 BP 124/71 12/12/20 13:37 Pulse Ox 94 L 12/12/20 13:37 Weight - Most Recent: 53.5 kg I&O - Last 24 Hours: Intake & Output 12/11/20 12/12/20 12/12/20 22:59 06:59 14:59 Intake Total 1849 904 8576 Output Total 800 850 100 Balance 264 -630 900 Lab Results Last 24 Hours: Laboratory Results - last 24 hr 12/12/20 12/12/20 Range/Units 06:00 06:00 WBC 6.79 (4.0-11.0) K/uL RBC 3.93 L (4.30-5.90) M/uL Hgb 11.7 L (12.0-16.0) g/dL Hct 36.4 (36.0-46.0) % MCV 92.6 (80.0-98.0) fL MCH 29.8 (27.0-32.0) pg MCHC 32.1 (31.0-37.0) g/dL RDW Std Deviation 42.8 (28.0-62.0) fl RDW Coeff of Hammad 13 (11.0-15.0) % Plt Count 148 L (150-400) K/uL MPV 9.20 (7.40-12.00) fL Neut % (Auto) 64.3 (48.0-80.0) % Lymph % (Auto) 18.7 (16.0-40.0) % [place] % (Auto) 15.8 H (0.0-15.0) % Eos % (Auto) 0.9 (0.0-7.0) % Baso % (Auto) 0.3 (0.0-1.5) % Neut # (Auto) 4.4 (1.4-5.7) K/uL Lymph # (Auto) 1.3 (0.6-2.4) K/uL [place] # (Auto) 1.1 H (0.0-0.8) K/uL Eos # (Auto) 0.1 (0.0-0.7) K/uL Baso # (Auto) 0.0 (0.0-0.1) K/uL Nucleated RBC % 0.0 /100WBC Nucleated RBCs # 0 K/uL Sodium 140 (136-145) mmol/L Potassium 4.3 (3.5-5.1) mmol/L Chloride 105 (98-107) mmol/L Carbon Dioxide 28.3 (21.0-32.0) mmol/L BUN 15 (7.0-18.0) mg/dL Creatinine 0.7 (0.6-1.0) mg/dL Est Cr Clr Drug Dosing 53.23 mL/min Estimated GFR (MDRD) > 60.0 ml/min Glucose 115 H (74-106) mg/dL Calcium 8.6 (8.5-10.1) mg/dL Magnesium 1.9 (1.8-2.4) mg/dL Radames Results Last 24 Hours: Microbiology 12/10/20 15:20 Urine Culture - Final Urine, Catheterized MIXED SERA <1000 CFU/ML Med Orders - Current: Current Medications Acetaminophen (Tylenol) 650 mg PO Q4H PRN PRN Reason: Pain (Mild 1-3)/fever Hydrocodone Bitart/Acetaminophen (Hardy 325-5 Mg) 1 tab PO Q4H PRN PRN Reason: Pain (moderate 4-6) Last Admin: 12/11/20 00:13 Dose: 1 tab Documented by: Albuterol (Proventil Neb Soln) 2.5 mg NEB Q2H PRN PRN Reason: Shortness Of Breath/wheezing Aspirin (Ecotrin) 325 mg PO DAILY [facility] Bisacodyl (Dulcolax) 10 mg RECTAL DAILY PRN PRN Reason: if no BM after 2 days Docusate Sodium (Colace) 100 mg PO BID [facility] Last Admin: 12/12/20 08:28 Dose: Not Given Documented by: Ceftriaxone Sodium/Dextrose 1 (gm/ Premix) 50 mls @ 100 mls/hr IV Q24H [facility] Last Admin: 12/11/20 16:41 Dose: 100 mls/hr Documented by: Lactated Ringer's (Ringers, Lactated) 1,000 mls @ 50 mls/hr IV Q20H [facility] Last Admin: 12/11/20 13:45 Dose: 50 mls/hr Documented by: Morphine Sulfate (Morphine) 2 mg IVPUSH Q3H PRN PRN Reason: Pain (severe 7-10) Last Admin: 12/12/20 08:25 Dose: 2 mg Documented by: Ondansetron HCl (Zofran) 4 mg IVPUSH Q4H PRN PRN Reason: Nausea Sodium Chloride (Saline Flush) 2.5 ml FLUSH ASDIRECTED PRN PRN Reason: Keep Vein Open Discontinued Medications Bupivacaine HCl (Sensorcaine-Mpf 0.5%) Confirm Administered Dose 10 ml .ROUTE .STK-MED ONE Stop: 12/12/20 02:05 Bupivacaine HCl (Sensorcaine-Mpf 0.5%) Confirm Administered Dose 10 ml .ROUTE .STK-MED ONE Stop: 12/12/20 08:31 Bupivacaine HCl (Sensorcaine-Mpf 0.5%) Confirm Administered Dose 10 ml .ROUTE .STK-MED ONE Stop: 12/12/20 10:15 Bupivacaine HCl (Marcaine 0.5%) Confirm Administered Dose 30 ml .ROUTE .STK-MED ONE Stop: 12/12/20 11:32 Cefazolin Sodium (Ancef) Confirm Administered Dose 1 gm .ROUTE .STK-MED ONE Stop: 12/12/20 08:30 Enoxaparin Sodium (Lovenox) 40 mg SUBCUT Q24H [facility] Stop: 12/11/20 17:31 Last Admin: 12/11/20 16:41 Dose: 40 mg Documented by: Fentanyl (Sublimaze) Confirm Administered Dose 100 mcg .ROUTE .STK-MED ONE Stop: 12/12/20 07:24 Lactated Ringer's (Ringers, Lactated) 1,000 mls @ 75 mls/hr IV ASDIRECTED [facility] Last Admin: 12/10/20 14:22 Dose: 75 mls/hr Documented by: Sodium Chloride (Normal Saline) Confirm Administered Dose 20 mls @ as directed .ROUTE .STK-MED ONE Stop: 12/12/20 08:30 Ketamine HCl (Ketalar) Confirm Administered Dose 500 mg .ROUTE .STK-MED ONE Stop: 12/12/20 07:22 Midazolam HCl (Versed 1 Mg/Ml) Confirm Administered Dose 2 mg .ROUTE .STK-MED ONE Stop: 12/12/20 07:22 Morphine Sulfate (Morphine) 2 mg IVPUSH ONETIME ONE Stop: 12/10/20 12:28 Last Admin: 12/10/20 12:27 Dose: 2 mg Documented by: Morphine Sulfate (Morphine) 2 mg IVPUSH ONETIME ONE Stop: 12/10/20 14:16 Last Admin: 12/10/20 14:23 Dose: 2 mg Documented by: Ondansetron HCl (Zofran) Confirm Administered Dose 4 mg .ROUTE .STK-MED ONE Stop: 12/12/20 07:21 Phenylephrine HCl (Handy-Synephrine) Confirm Administered Dose 10 mg .ROUTE .STK- MED ONE Stop: 12/12/20 07:19 Propofol (Diprivan 20 Ml) Confirm Administered Dose 200 mg .ROUTE .STK-MED ONE Stop: 12/12/20 10:53 - Exam Quality Assessment: DVT Prophylaxis (Last dose was given yesterday at 4 PM, held today's dose for surgical procedure) General: Alert, Oriented HEENT: Pupils Equal, Pupils Reactive, EOMI, Mucous Membr. Moist/[place] Neck: Supple, No JVD. No: Lymphadenopathy Lungs: Clear to Auscultation, Normal Respiratory Effort Cardiovascular: Regular Rate, Regular Rhythm GI/Abdominal Exam: Normal Bowel Sounds, Soft, Non-Tender, No Organomegaly, No Distention, No Abnormal Bruit, No Mass, Pelvis Stable Extremities: Normal Inspection, Normal Range of Motion, Non-Tender, No Pedal Edema, Normal Capillary Refill, Leg Pain (Right leg pain well controlled medication) Peripheral Pulses: 2+: Brachial (L), Brachial (R), Dorsalis Pedis (L), Dorsalis Pedis (R) Skin: Warm, Dry, Intact Neurological: No New Focal Deficit Psy/Mental Status: Alert, Normal Affect, Normal Mood Sepsis Event Note - Evaluation Sepsis Screening Result: No Definite Risk - Focused Exam Vital Signs: Vital Signs Temp Pulse Resp BP Pulse Ox 12/12/20 13:37 81 13 124/71 94 L 12/12/20 13:32 79 10 L 124/71 95 12/12/20 13:27 81 13 126/63 97 12/12/20 13:22 80 10 L 119/62 97 12/12/20 13:17 81 12 108/69 97 12/12/20 13:12 87 12 101/60 97 12/12/20 13:07 92 16 114/72 96 12/12/20 13:02 96 18 116/71 95 12/12/20 12:57 96 15 115/64 95 12/12/20 12:52 93 15 113/69 95 12/12/20 12:47 90 13 109/61 97 12/12/20 12:42 85 14 106/61 96 12/12/20 12:37 101 H 18 109/57 L 97 12/12/20 12:32 99 19 104/53 L 98 12/12/20 12:27 90 15 90/45 L 96 12/12/20 12:22 101 H 19 90/60 94 L 12/12/20 12:12 102 H 22 H 89/50 L 96 12/12/20 12:08 100 13 98/67 95 12/12/20 12:03 99 20 117/57 L 99 12/12/20 11:57 87 14 110/61 98 12/12/20 11:52 99.0 F 72 18 119/64 99 12/12/20 08:19 98.0 F 83 17 133/69 93 L 12/12/20 04:00 98.1 F 78 18 110/70 96 - Problem List Review Problem List Initiated/Reviewed/Updated: Yes - Plan Plan:: This 80-year-old female admitted with right intertrochanteric hip fracture after mechanical fall 1. Right intertrochanteric hip fracture -Dr. Corbin orthopedics consulted -Plan is for OR Sunday at 9 AM -N.p.o. Sunday at midnight -Tylenol, morphine and Hardy as needed pain 2. UTI -UC pending -Rocephin 1 g IV daily 3. Asthma -Albuterol inhaler as needed VTE prophylaxis: Lovenox to be stopped 24 hours prior to surgery Disposition: 3 to 4 days pending improvement . <Stone Agee - Last Filed: 12/12/20 22:41> - Patient Data Vitals - Most Recent: Last Vital Signs Temp 36.8 C 12/12/20 22:00 Pulse 75 12/12/20 22:00 Resp 18 12/12/20 22:00 BP 128/75 12/12/20 22:00 Pulse Ox 97 12/12/20 22:00 I&O - Last 24 Hours: Intake & Output 12/12/20 12/12/20 12/12/20 06:59 14:59 22:59 Intake Total 220 1000 50 Output Total 850 100 600 Balance -630 900 -550 Lab Results Last 24 Hours: Laboratory Results - last 24 hr 12/12/20 12/12/20 Range/Units 06:00 06:00 WBC 6.79 (4.0-11.0) K/uL RBC 3.93 L (4.30-5.90) M/uL Hgb 11.7 L (12.0-16.0) g/dL Hct 36.4 (36.0-46.0) % MCV 92.6 (80.0-98.0) fL MCH 29.8 (27.0-32.0) pg MCHC 32.1 (31.0-37.0) g/dL RDW Std Deviation 42.8 (28.0-62.0) fl RDW Coeff of Hammad 13 (11.0-15.0) % Plt Count 148 L (150-400) K/uL MPV 9.20 (7.40-12.00) fL Neut % (Auto) 64.3 (48.0-80.0) % Lymph % (Auto) 18.7 (16.0-40.0) % [place] % (Auto) 15.8 H (0.0-15.0) % Eos % (Auto) 0.9 (0.0-7.0) % Baso % (Auto) 0.3 (0.0-1.5) % Neut # (Auto) 4.4 (1.4-5.7) K/uL Lymph # (Auto) 1.3 (0.6-2.4) K/uL [place] # (Auto) 1.1 H (0.0-0.8) K/uL Eos # (Auto) 0.1 (0.0-0.7) K/uL Baso # (Auto) 0.0 (0.0-0.1) K/uL Nucleated RBC % 0.0 /100WBC Nucleated RBCs # 0 K/uL Sodium 140 (136-145) mmol/L Potassium 4.3 (3.5-5.1) mmol/L Chloride 105 (98-107) mmol/L Carbon Dioxide 28.3 (21.0-32.0) mmol/L BUN 15 (7.0-18.0) mg/dL Creatinine 0.7 (0.6-1.0) mg/dL Est Cr Clr Drug Dosing 53.23 mL/min Estimated GFR (MDRD) > 60.0 ml/min Glucose 115 H (74-106) mg/dL Calcium 8.6 (8.5-10.1) mg/dL Magnesium 1.9 (1.8-2.4) mg/dL Radames Results Last 24 Hours: Microbiology 12/10/20 15:20 Urine Culture - Final Urine, Catheterized MIXED SERA <1000 CFU/ML Med Orders - Current: Current Medications Acetaminophen (Tylenol) 650 mg PO Q4H PRN PRN Reason: Pain (Mild 1-3)/fever Hydrocodone Bitart/Acetaminophen (Hardy 325-5 Mg) 1 tab PO Q4H PRN PRN Reason: Pain (moderate 4-6) Last Admin: 12/11/20 00:13 Dose: 1 tab Documented by: Albuterol (Proventil Neb Soln) 2.5 mg NEB Q2H PRN PRN Reason: Shortness Of Breath/wheezing Aspirin (Ecotrin) 325 mg PO DAILY [facility] Bisacodyl (Dulcolax) 10 mg RECTAL DAILY PRN PRN Reason: if no BM after 2 days Docusate Sodium (Colace) 100 mg PO BID [facility] Last Admin: 12/12/20 20:35 Dose: Not Given Documented by: Ceftriaxone Sodium/Dextrose 1 (gm/ Premix) 50 mls @ 100 mls/hr IV Q24H [facility] Last Admin: 12/12/20 17:07 Dose: 100 mls/hr Documented by: Lactated Ringer's (Ringers, Lactated) 1,000 mls @ 50 mls/hr IV Q20H [facility] Last Admin: 12/12/20 14:37 Dose: 50 mls/hr Documented by: Morphine Sulfate (Morphine) 2 mg IVPUSH Q3H PRN PRN Reason: Pain (severe 7-10) Last Admin: 12/12/20 20:23 Dose: 2 mg Documented by: Ondansetron HCl (Zofran) 4 mg IVPUSH Q4H PRN PRN Reason: Nausea Sodium Chloride (Saline Flush) 2.5 ml FLUSH ASDIRECTED PRN PRN Reason: Keep Vein Open Discontinued Medications Bupivacaine HCl (Sensorcaine-Mpf 0.5%) Confirm Administered Dose 10 ml .ROUTE .STK-MED ONE Stop: 12/12/20 02:05 Bupivacaine HCl (Sensorcaine-Mpf 0.5%) Confirm Administered Dose 10 ml .ROUTE .STK-MED ONE Stop: 12/12/20 08:31 Bupivacaine HCl (Sensorcaine-Mpf 0.5%) Confirm Administered Dose 10 ml .ROUTE .STK-MED ONE Stop: 12/12/20 10:15 Bupivacaine HCl (Marcaine 0.5%) Confirm Administered Dose 30 ml .ROUTE .STK-MED ONE Stop: 12/12/20 11:32 Cefazolin Sodium (Ancef) Confirm Administered Dose 1 gm .ROUTE .STK-MED ONE Stop: 12/12/20 08:30 Enoxaparin Sodium (Lovenox) 40 mg SUBCUT Q24H [facility] Stop: 12/11/20 17:31 Last Admin: 12/11/20 16:41 Dose: 40 mg Documented by: Fentanyl (Sublimaze) Confirm Administered Dose 100 mcg .ROUTE .STK-MED ONE Stop: 12/12/20 07:24 Lactated Ringer's (Ringers, Lactated) 1,000 mls @ 75 mls/hr IV ASDIRECTED [facility] Last Admin: 12/10/20 14:22 Dose: 75 mls/hr Documented by: Sodium Chloride (Normal Saline) Confirm Administered Dose 20 mls @ as directed .ROUTE .STK-MED ONE Stop: 12/12/20 08:30 Ketamine HCl (Ketalar) Confirm Administered Dose 500 mg .ROUTE .STK-MED ONE Stop: 12/12/20 07:22 Midazolam HCl (Versed 1 Mg/Ml) Confirm Administered Dose 2 mg .ROUTE .STK-MED ONE Stop: 12/12/20 07:22 Morphine Sulfate (Morphine) 2 mg IVPUSH ONETIME ONE Stop: 12/10/20 12:28 Last Admin: 12/10/20 12:27 Dose: 2 mg Documented by: Morphine Sulfate (Morphine) 2 mg IVPUSH ONETIME ONE Stop: 12/10/20 14:16 Last Admin: 12/10/20 14:23 Dose: 2 mg Documented by: Ondansetron HCl (Zofran) Confirm Administered Dose 4 mg .ROUTE .ST-MED ONE Stop: 12/12/20 07:21 Phenylephrine HCl (Handy-Synephrine) Confirm Administered Dose 10 mg .ROUTE .STK- MED ONE Stop: 12/12/20 07:19 Propofol (Diprivan 20 Ml) Confirm Administered Dose 200 mg .ROUTE .[facility]-MED ONE Stop: 12/12/20 10:53 Sepsis Event Note - Focused Exam Vital Signs: Vital Signs Temp Pulse Resp BP Pulse Ox 12/12/20 22:00 36.8 C 75 18 128/75 97 12/12/20 18:00 82 16 120/63 97 12/12/20 17:00 87 15 111/56 L 97 12/12/20 16:00 36.7 C 93 16 132/67 97 12/12/20 15:30 94 16 133/72 98 12/12/20 15:00 89 17 134/63 97 12/12/20 14:45 36.5 C 80 18 135/63 96 12/12/20 14:30 90 16 134/66 95 12/12/20 14:15 88 16 122/61 97 12/12/20 14:00 36.6 C 75 15 119/59 L 93 L 12/12/20 13:37 81 13 124/71 94 L 12/12/20 13:32 79 10 L 124/71 95 12/12/20 13:27 81 13 126/63 97 12/12/20 13:22 80 10 L 119/62 97 12/12/20 13:17 81 12 108/69 97 12/12/20 13:12 87 12 101/60 97 12/12/20 13:07 92 16 114/72 96 12/12/20 13:02 96 18 116/71 95 12/12/20 12:57 96 15 115/64 95 12/12/20 12:52 93 15 113/69 95 12/12/20 12:47 90 13 109/61 97 12/12/20 12:42 85 14 106/61 96 12/12/20 12:37 101 H 18 109/57 L 97 12/12/20 12:32 99 19 104/53 L 98 12/12/20 12:27 90 15 90/45 L 96 12/12/20 12:22 101 H 19 90/60 94 L 12/12/20 12:12 102 H 22 H 89/50 L 96 12/12/20 12:08 100 13 98/67 95 12/12/20 12:03 99 20 117/57 L 99 12/12/20 11:57 87 14 110/61 98 12/12/20 11:52 37.2 C 72 18 119/64 99 - Plan Plan:: I have seen and evaluated the patient and agree with the residents note unless specified in my note
[2020-12-12] MEDS: Lactated Ringers 1,000 ML IV SCH (14:37)
[2020-12-12] MEDS: cefTRIAXone 1 GM in Premix Bag 1 BAG IV SCH (17:07)
[2020-12-13] MEDS: Morphine 2 MG/ML SYRINGE IVPUSH PRN ×4 (00:24→22:02)
[2020-12-13 06:36] LABS: BLOOD UREA NITROGEN,BUN 13 mg/dL (7.0-18.0); CARBON DIOXIDE,CO2 28.8 mmol/L (21.0-32.0); CHLORIDE,CL 102 mmol/L (98-107); GLUCOSE RANDOM 133 mg/dL (74-106); SODIUM,NA 138 mmol/L (136-145)
--- NOTE | 2020-12-13 06:53 | PCM48HPAN ---
Post Anesthesia Note - EVALUATION WITHIN 48HRS OF ANESTHETIC Vital Signs in Normal Range: Yes Patient Participated in Evaluation: Yes Respiratory Function Stable: Yes Airway Patent: Yes Hydration Status Stable: Yes Pain Control Satisfactory: Yes Nausea and Vomiting Control Satisfactory: Yes Mental Status Recovered: Yes Vital Signs: Last Vital Signs Temp 36.8 C 12/13/20 04:00 Pulse 84 12/13/20 04:00 Resp 18 12/13/20 04:00 BP 108/68 12/13/20 04:00 Pulse Ox 94 L 12/13/20 04:00 - COMMENTS/OBSERVATIONS Free Text/Narrative:: Patient reports being dysphoric during the early recovery period. This was probably due to side effect of light keatmine sedation used in the operating room. Patient is now fully recovered, and oriented. Jason Mustafa [employer]
--- NOTE | 2020-12-13 07:58 | PCM.PN ---
- General Info Date of Service: 12/13/20 Admission Dx/Problem (Free Text): Right intertrochanteric hip fracture Subjective Update: Reports she is feeling okay this morning right hip pain is tolerable. Denies any chest pain shortness of breath or palpitations. Reports anesthesia was quite difficult and scary as she reports she had very vivid dreamlike state. Denies any other concerns or questions this morning eager for physical therapy. Eating breakfast and tolerating this well. Functional Status: Reports: Pain Controlled, Tolerating Diet - Review of Systems General: Reports: No Symptoms. Denies: Weakness, Fatigue Pulmonary: Reports: No Symptoms. Denies: Shortness of Breath Cardiovascular: Reports: No Symptoms. Denies: Chest Pain Gastrointestinal: Reports: No Symptoms. Denies: Abdominal Pain, Nausea, Vomiting Genitourinary: Reports: No Symptoms. Denies: Dysuria, Frequency Musculoskeletal: Reports: No Symptoms Skin: Reports: No Symptoms Neurological: Reports: No Symptoms Psychiatric: Reports: No Symptoms - Patient Data Vitals - Most Recent: Last Vital Signs Temp 96.7 F L 12/13/20 07:50 Pulse 88 12/13/20 07:50 Resp 17 12/13/20 07:50 BP 107/55 L 12/13/20 07:50 Pulse Ox 92 L 12/13/20 07:50 Weight - Most Recent: 53.5 kg I&O - Last 24 Hours: Intake & Output 12/12/20 12/13/20 12/13/20 22:59 06:59 14:59 Intake Total 50 250 Output Total 600 750 Balance -550 -500 Lab Results Last 24 Hours: Laboratory Results - last 24 hr 12/13/20 12/13/20 Range/Units 05:53 05:53 WBC 7.59 (4.0-11.0) K/uL RBC 3.71 L (4.30-5.90) M/uL Hgb 11.1 L (12.0-16.0) g/dL Hct 34.0 L (36.0-46.0) % MCV 91.6 (80.0-98.0) fL MCH 29.9 (27.0-32.0) pg MCHC 32.6 (31.0-37.0) g/dL RDW Std Deviation 41.7 (28.0-62.0) fl RDW Coeff of Hammad 12 (11.0-15.0) % Plt Count 158 (150-400) K/uL MPV 9.30 (7.40-12.00) fL Neut % (Auto) 75.1 (48.0-80.0) % Lymph % (Auto) 12.0 L (16.0-40.0) % [place] % (Auto) 12.5 (0.0-15.0) % Eos % (Auto) 0.3 (0.0-7.0) % Baso % (Auto) 0.1 (0.0-1.5) % Neut # (Auto) 5.7 (1.4-5.7) K/uL Lymph # (Auto) 0.9 (0.6-2.4) K/uL [place] # (Auto) 1.0 H (0.0-0.8) K/uL Eos # (Auto) 0.0 (0.0-0.7) K/uL Baso # (Auto) 0.0 (0.0-0.1) K/uL Nucleated RBC % 0.0 /100WBC Nucleated RBCs # 0 K/uL Sodium 138 (136-145) mmol/L Potassium 4.0 (3.5-5.1) mmol/L Chloride 102 (98-107) mmol/L Carbon Dioxide 28.8 (21.0-32.0) mmol/L BUN 13 (7.0-18.0) mg/dL Creatinine 0.6 (0.6-1.0) mg/dL Est Cr Clr Drug Dosing 62.11 mL/min Estimated GFR (MDRD) > 60.0 ml/min Glucose 133 H (74-106) mg/dL Calcium 8.4 L (8.5-10.1) mg/dL Magnesium 2.0 (1.8-2.4) mg/dL Radames Results Last 24 Hours: Microbiology 12/10/20 15:20 Urine Culture - Final Urine, Catheterized MIXED JUAN A <1000 CFU/ML Med Orders - Current: Current Medications Acetaminophen (Tylenol) 650 mg PO Q4H PRN PRN Reason: Pain (Mild 1-3)/fever Hydrocodone Bitart/Acetaminophen ([place] 325-5 Mg) 1 tab PO Q4H PRN PRN Reason: Pain (moderate 4-6) Last Admin: 12/11/20 00:13 Dose: 1 tab Documented by: Albuterol (Proventil Neb Soln) 2.5 mg NEB Q2H PRN PRN Reason: Shortness Of Breath/wheezing Aspirin (Ecotrin) 325 mg PO DAILY [facility] Bisacodyl (Dulcolax) 10 mg RECTAL DAILY PRN PRN Reason: if no BM after 2 days Docusate Sodium (Colace) 100 mg PO BID [facility] Last Admin: 12/12/20 20:35 Dose: Not Given Documented by: Ceftriaxone Sodium/Dextrose 1 (gm/ Premix) 50 mls @ 100 mls/hr IV Q24H [facility] Last Admin: 12/12/20 17:07 Dose: 100 mls/hr Documented by: Lactated Ringer's (Ringers, Lactated) 1,000 mls @ 50 mls/hr IV Q20H [facility] Last Admin: 12/12/20 14:37 Dose: 50 mls/hr Documented by: Morphine Sulfate (Morphine) 2 mg IVPUSH Q3H PRN PRN Reason: Pain (severe 7-10) Last Admin: 12/13/20 04:25 Dose: 2 mg Documented by: Ondansetron HCl (Zofran) 4 mg IVPUSH Q4H PRN PRN Reason: Nausea Sodium Chloride (Saline Flush) 2.5 ml FLUSH ASDIRECTED PRN PRN Reason: Keep Vein Open Discontinued Medications Bupivacaine HCl (Sensorcaine-Mpf 0.5%) Confirm Administered Dose 10 ml .ROUTE .STK-MED ONE Stop: 12/12/20 02:05 Bupivacaine HCl (Sensorcaine-Mpf 0.5%) Confirm Administered Dose 10 ml .ROUTE .STK-MED ONE Stop: 12/12/20 08:31 Bupivacaine HCl (Sensorcaine-Mpf 0.5%) Confirm Administered Dose 10 ml .ROUTE .STK-MED ONE Stop: 12/12/20 10:15 Bupivacaine HCl (Marcaine 0.5%) Confirm Administered Dose 30 ml .ROUTE .STK-MED ONE Stop: 12/12/20 11:32 Cefazolin Sodium (Ancef) Confirm Administered Dose 1 gm .ROUTE .STK-MED ONE Stop: 12/12/20 08:30 Enoxaparin Sodium (Lovenox) 40 mg SUBCUT Q24H [facility] Stop: 12/11/20 17:31 Last Admin: 12/11/20 16:41 Dose: 40 mg Documented by: Fentanyl (Sublimaze) Confirm Administered Dose 100 mcg .ROUTE .STK-MED ONE Stop: 12/12/20 07:24 Lactated Ringer's (Ringers, Lactated) 1,000 mls @ 75 mls/hr IV ASDIRECTED [facility] Last Admin: 12/10/20 14:22 Dose: 75 mls/hr Documented by: Sodium Chloride (Normal Saline) Confirm Administered Dose 20 mls @ as directed .ROUTE .STK-MED ONE Stop: 12/12/20 08:30 Ketamine HCl (Ketalar) Confirm Administered Dose 500 mg .ROUTE .STK-MED ONE Stop: 12/12/20 07:22 Midazolam HCl (Versed 1 Mg/Ml) Confirm Administered Dose 2 mg .ROUTE .STK-MED ONE Stop: 12/12/20 07:22 Morphine Sulfate (Morphine) 2 mg IVPUSH ONETIME ONE Stop: 12/10/20 12:28 Last Admin: 12/10/20 12:27 Dose: 2 mg Documented by: Morphine Sulfate (Morphine) 2 mg IVPUSH ONETIME ONE Stop: 12/10/20 14:16 Last Admin: 12/10/20 14:23 Dose: 2 mg Documented by: Ondansetron HCl (Zofran) Confirm Administered Dose 4 mg .ROUTE .STK-MED ONE Stop: 12/12/20 07:21 Phenylephrine HCl (Handy-Synephrine) Confirm Administered Dose 10 mg .ROUTE .STK- MED ONE Stop: 12/12/20 07:19 Propofol (Diprivan 20 Ml) Confirm Administered Dose 200 mg .ROUTE .ST-MED ONE Stop: 12/12/20 10:53 - Exam Quality Assessment: Urine Catheter, DVT Prophylaxis. No: Supplemental Oxygen General: Alert, Oriented, Cooperative, No Acute Distress HEENT: Pupils Equal, Pupils Reactive, Mucous Membr. Moist/[place] Neck: Supple Lungs: Clear to Auscultation, Normal Respiratory Effort Cardiovascular: Regular Rate, Regular Rhythm, No Murmurs GI/Abdominal Exam: Normal Bowel Sounds, Soft, Non-Tender Back Exam: Normal Inspection, Full Range of Motion Extremities: Normal Inspection, Normal Range of Motion, Non-Tender, No Pedal Edema Wound/Incisions: Dressing Dry and Intact (Dressing to right hip, polar ice intact no shadowing noted.), No Drainage. No: Erythema Neurological: No New Focal Deficit Psy/Mental Status: Alert, Normal Affect, Normal Mood Sepsis Event Note - Evaluation Sepsis Screening Result: No Definite Risk - Focused Exam Vital Signs: Vital Signs Temp Pulse Resp BP Pulse Ox 12/13/20 07:50 96.7 F L 88 17 107/55 L 92 L 12/13/20 04:00 98.2 F 84 18 108/68 94 L 12/13/20 00:00 99.4 F 89 18 118/68 97 12/12/20 20:00 98.2 F 75 18 128/75 97 - Problem List & Annotations (1) Intertrochanteric fracture of right hip SNOMED Code(s): 279748261, 97213589886372730 Code(s): S72.141A - DISPLACED INTERTROCHANTERIC FRACTURE OF RIGHT FEMUR, INIT Status: Acute Current Visit: Yes Qualifiers: Encounter type: initial encounter Fracture type: closed Fracture alignment: nondisplaced Qualified Code(s): S72.144A - Nondisplaced intertrochanteric fracture of right femur, initial encounter for closed fracture (2) Fall SNOMED Code(s): 8867931, 453947246 Code(s): W19.XXXA - UNSPECIFIED FALL, INITIAL ENCOUNTER Status: Acute Current Visit: Yes (3) UTI (urinary tract infection) SNOMED Code(s): 38304321 Code(s): N39.0 - URINARY TRACT INFECTION, SITE NOT SPECIFIED Status: Acute Current Visit: No Qualifiers: Urinary tract infection type: site unspecified Hematuria presence: without hematuria Qualified Code(s): N39.0 - Urinary tract infection, site not specified (4) Asthma SNOMED Code(s): 687648328 Code(s): J45.909 - UNSPECIFIED ASTHMA, UNCOMPLICATED Status: Chronic Current Visit: Yes Qualifiers: Asthma severity: mild Asthma persistence: intermittent Asthma complication type: uncomplicated Qualified Code(s): J45.20 - Mild intermittent asthma, uncomplicated - Problem List Review Problem List Initiated/Reviewed/Updated: Yes - My Orders Last 24 Hours: My Active Orders 12/14/20 05:11 BASIC METABOLIC PANEL,BMP [CHEM] AM CBC WITH AUTO DIFF [HEME] AM MAGNESIUM [CHEM] AM 12/15/20 05:11 BASIC METABOLIC PANEL,BMP [CHEM] AM CBC WITH AUTO DIFF [HEME] AM MAGNESIUM [CHEM] AM - Plan Plan:: This 80-year-old female admitted with right intertrochanteric hip fracture after mechanical fall 1. Right intertrochanteric hip fracture -POD #1 -Dr. Corbin orthopedics consulted, OR yesterday -Tylenol and Eclectic as needed pain -Morphine as needed pain -PT to be consulted for ambulation -Singer catheter in place, will remove once patient able to transfer. - Bowel regimen 2. UTI -UC mixed juan a less than 1,000 colonies -Rocephin 1 g IV daily, will stop today 3. Asthma -Albuterol inhaler as needed VTE prophylaxis: ASA daily per orthopedics Disposition: 3 to 4 days pending improvement. Will see how she does with physical therapy today to determine disposition of either home with home health and physical therapy or to residential rehab.
[2020-12-13] MEDS: Aspirin 325 MG Tab.EC PO SCH (08:05)
[2020-12-13] MEDS: Docusate Sodium Liquid 100 MG/10 ML UD Cup PO SCH ×2 (09:04→22:02)
[2020-12-13] MEDS ORDERED: Chloroprocaine 10 MG/ML 5 ML Amp ONE (09:18)
[2020-12-13] MEDS: Lactated Ringers 1,000 ML IV SCH (10:15)
--- NOTE | 2020-12-13 12:19 | PCM.SURGPN ---
- General Info Date of Service: 12/13/20 (1145) Date of Surgery/Procedure: 12/12/20 (ORIF right intertrochanteric hip fracture) POD#: 1 Admission Diagnosis/Problem: Hip fracture, intertrochanteric Functional Status: Reports: Tolerating Diet (sitting in chair, lunch being served.), Ambulating (States just got OOB into chair with nursing assist). Denies: Pain Controlled (reports moderate pain in right hip) - Review of Systems General: Denies: Fever Musculoskeletal: Reports: Other (right hip pain) Neurological: Denies: Confusion - Patient Data Vitals - Most Recent: Last Vital Signs Temp 36.6 C 12/13/20 11:23 Pulse 92 12/13/20 11:23 Resp 18 12/13/20 11:23 BP 106/53 L 12/13/20 11:23 Pulse Ox 94 L 12/13/20 11:23 Weight - Most Recent: 53.5 kg I&O - Last 24 Hours: Intake & Output 12/12/20 12/13/20 12/13/20 22:59 06:59 14:59 Intake Total 50 250 Output Total 600 750 Balance -550 -500 Lab Results Last 24 Hrs: Laboratory Results - last 24 hr 12/13/20 12/13/20 Range/Units 05:53 05:53 WBC 7.59 (4.0-11.0) K/uL RBC 3.71 L (4.30-5.90) M/uL Hgb 11.1 L (12.0-16.0) g/dL Hct 34.0 L (36.0-46.0) % MCV 91.6 (80.0-98.0) fL MCH 29.9 (27.0-32.0) pg MCHC 32.6 (31.0-37.0) g/dL RDW Std Deviation 41.7 (28.0-62.0) fl RDW Coeff of Hammad 12 (11.0-15.0) % Plt Count 158 (150-400) K/uL MPV 9.30 (7.40-12.00) fL Neut % (Auto) 75.1 (48.0-80.0) % Lymph % (Auto) 12.0 L (16.0-40.0) % [place] % (Auto) 12.5 (0.0-15.0) % Eos % (Auto) 0.3 (0.0-7.0) % Baso % (Auto) 0.1 (0.0-1.5) % Neut # (Auto) 5.7 (1.4-5.7) K/uL Lymph # (Auto) 0.9 (0.6-2.4) K/uL [place] # (Auto) 1.0 H (0.0-0.8) K/uL Eos # (Auto) 0.0 (0.0-0.7) K/uL Baso # (Auto) 0.0 (0.0-0.1) K/uL Nucleated RBC % 0.0 /100WBC Nucleated RBCs # 0 K/uL Sodium 138 (136-145) mmol/L Potassium 4.0 (3.5-5.1) mmol/L Chloride 102 (98-107) mmol/L Carbon Dioxide 28.8 (21.0-32.0) mmol/L BUN 13 (7.0-18.0) mg/dL Creatinine 0.6 (0.6-1.0) mg/dL Est Cr Clr Drug Dosing 62.11 mL/min Estimated GFR (MDRD) > 60.0 ml/min Glucose 133 H (74-106) mg/dL Calcium 8.4 L (8.5-10.1) mg/dL Magnesium 2.0 (1.8-2.4) mg/dL Radames Results Last 24 Hrs: Microbiology 12/10/20 15:20 Urine Culture - Final Urine, Catheterized MIXED SERA <1000 CFU/ML Med Orders - Current: Current Medications Acetaminophen (Tylenol) 650 mg PO Q4H PRN PRN Reason: Pain (Mild 1-3)/fever Albuterol (Proventil Neb Soln) 2.5 mg NEB Q2H PRN PRN Reason: Shortness Of Breath/wheezing Aspirin (Ecotrin) 325 mg PO DAILY [facility] Last Admin: 12/13/20 08:05 Dose: 325 mg Documented by: Bisacodyl (Dulcolax) 10 mg RECTAL DAILY PRN PRN Reason: if no BM after 2 days Docusate Sodium (Colace 50 Mg/5 Ml Liquid) 100 mg PO BID [facility] Last Admin: 12/13/20 09:04 Dose: 100 mg Documented by: Morphine Sulfate (Morphine) 2 mg IVPUSH Q3H PRN PRN Reason: Pain (severe 7-10) Last Admin: 12/13/20 11:18 Dose: 2 mg Documented by: Ondansetron HCl (Zofran) 4 mg IVPUSH Q4H PRN PRN Reason: Nausea Sodium Chloride (Saline Flush) 2.5 ml FLUSH ASDIRECTED PRN PRN Reason: Keep Vein Open Tramadol HCl (Ultram) 50 mg PO Q4H PRN PRN Reason: Pain Discontinued Medications Hydrocodone Bitart/Acetaminophen ([place] 325-5 Mg) 1 tab PO Q4H PRN PRN Reason: Pain (moderate 4-6) Last Admin: 12/11/20 00:13 Dose: 1 tab Documented by: Bupivacaine HCl (Sensorcaine-Mpf 0.5%) Confirm Administered Dose 10 ml .ROUTE .STK-MED ONE Stop: 12/12/20 02:05 Bupivacaine HCl (Sensorcaine-Mpf 0.5%) Confirm Administered Dose 10 ml .ROUTE .STK-MED ONE Stop: 12/12/20 08:31 Bupivacaine HCl (Sensorcaine-Mpf 0.5%) Confirm Administered Dose 10 ml .ROUTE .STK-MED ONE Stop: 12/12/20 10:15 Bupivacaine HCl (Marcaine 0.5%) Confirm Administered Dose 30 ml .ROUTE .STK-MED ONE Stop: 12/12/20 11:32 Cefazolin Sodium (Ancef) Confirm Administered Dose 1 gm .ROUTE .STK-MED ONE Stop: 12/12/20 08:30 Chloroprocaine HCl (Clorotekal) Confirm Administered Dose 5 ml .ROUTE .STK-MED ONE Stop: 12/13/20 09:19 Docusate Sodium (Colace) 100 mg PO BID [facility] Last Admin: 12/12/20 20:35 Dose: Not Given Documented by: Enoxaparin Sodium (Lovenox) 40 mg SUBCUT Q24H [facility] Stop: 12/11/20 17:31 Last Admin: 12/11/20 16:41 Dose: 40 mg Documented by: Fentanyl (Sublimaze) Confirm Administered Dose 100 mcg .ROUTE .STK-MED ONE Stop: 12/12/20 07:24 Lactated Ringer's (Ringers, Lactated) 1,000 mls @ 75 mls/hr IV ASDIRECTED [facility] Last Admin: 12/10/20 14:22 Dose: 75 mls/hr Documented by: Ceftriaxone Sodium/Dextrose 1 (gm/ Premix) 50 mls @ 100 mls/hr IV Q24H [facility] Last Admin: 12/12/20 17:07 Dose: 100 mls/hr Documented by: Lactated Ringer's (Ringers, Lactated) 1,000 mls @ 50 mls/hr IV Q20H [facility] Last Admin: 12/13/20 10:15 Dose: Not Given Documented by: Sodium Chloride (Normal Saline) Confirm Administered Dose 20 mls @ as directed .ROUTE .STK-MED ONE Stop: 12/12/20 08:30 Ketamine HCl (Ketalar) Confirm Administered Dose 500 mg .ROUTE .STK-MED ONE Stop: 12/12/20 07:22 Midazolam HCl (Versed 1 Mg/Ml) Confirm Administered Dose 2 mg .ROUTE .STK-MED ONE Stop: 12/12/20 07:22 Morphine Sulfate (Morphine) 2 mg IVPUSH ONETIME ONE Stop: 12/10/20 12:28 Last Admin: 12/10/20 12:27 Dose: 2 mg Documented by: Morphine Sulfate (Morphine) 2 mg IVPUSH ONETIME ONE Stop: 12/10/20 14:16 Last Admin: 12/10/20 14:23 Dose: 2 mg Documented by: Ondansetron HCl (Zofran) Confirm Administered Dose 4 mg .ROUTE .STK-MED ONE Stop: 12/12/20 07:21 Phenylephrine HCl (Handy-Synephrine) Confirm Administered Dose 10 mg .ROUTE .STK- MED ONE Stop: 12/12/20 07:19 Propofol (Diprivan 20 Ml) Confirm Administered Dose 200 mg .ROUTE .STK-MED ONE Stop: 12/12/20 10:53 - Exam Wound/Incisions: Dressing Dry and Intact (surgical dressing still CDI to right hip without shadows of drainage), No Drainage Quality Assessment: Urine Catheter, DVT Prophylaxis (Aspirin 325mg ) General: Alert, Oriented, Cooperative, No Acute Distress Extremities: No Pedal Edema, Other (sensation grossly intact to RLE) Neurological: Normal Speech Psy/Mental Status: Alert, Normal Affect, Normal Mood Sepsis Event Note - Evaluation Sepsis Screening Result: No Definite Risk - Focused Exam Vital Signs: Vital Signs Temp Pulse Resp BP Pulse Ox 12/13/20 11:23 36.6 C 92 18 106/53 L 94 L 12/13/20 07:50 35.9 C L 88 17 107/55 L 92 L 12/13/20 04:00 36.8 C 84 18 108/68 94 L - Problem List Review Problem List Initiated/Reviewed/Updated: Yes - My Orders Last 24 Hours: Active Orders 24 hr Category Date Time Status Cooling Warming Measures [RC] ASDIRECTED Care 12/12/20 12:17 Active Neurovascular Check [RC] Q2HR Care 12/12/20 18:27 Active Remove Singer Catheter [Urinary Catheter Removal] [RC] Care 12/13/20 06:00 Active PER UNIT ROUTINE Consult to Physical Therapy [PT Evaluation and Cons 12/12/20 12:14 Active Treatment] [CONS] Routine Regular Diet [DIET] Diet 12/12/20 Dinner Active Fluoro>1Hr [CR] Routine Exams 12/12/20 11:21 Taken BASIC METABOLIC PANEL,BMP [CHEM] AM Lab 12/14/20 05:11 Ordered BASIC METABOLIC PANEL,BMP [CHEM] AM Lab 12/15/20 05:11 Ordered CBC WITH AUTO DIFF [HEME] AM Lab 12/14/20 05:11 Ordered CBC WITH AUTO DIFF [HEME] AM Lab 12/15/20 05:11 Ordered MAGNESIUM [CHEM] AM Lab 12/14/20 05:11 Ordered MAGNESIUM [CHEM] AM Lab 12/15/20 05:11 Ordered Aspirin [Ecotrin] Med 12/13/20 09:00 Active 325 mg PO DAILY Docusate Sodium [Colace 50 MG/5 ML Liquid] Med 12/13/20 09:00 Active 100 mg PO BID traMADol [Ultram] Med 12/13/20 09:22 Active 50 mg PO Q4H PRN Ice Therapy [OM.PC] Routine Oth 12/12/20 12:16 Ordered Weight bearing status [OM.PC] Routine Oth 12/12/20 12:14 Ordered Medication Orders Acetaminophen (Tylenol) 650 mg PO Q4H PRN PRN Reason: Pain (Mild 1-3)/fever Albuterol (Proventil Neb Soln) 2.5 mg NEB Q2H PRN PRN Reason: Shortness Of Breath/wheezing Aspirin (Ecotrin) 325 mg PO DAILY [facility] Last Admin: 12/13/20 08:05 Dose: 325 mg Documented by: MINDY Bisacodyl (Dulcolax) 10 mg RECTAL DAILY PRN PRN Reason: if no BM after 2 days Docusate Sodium (Colace 50 Mg/5 Ml Liquid) 100 mg PO BID [facility] Last Admin: 12/13/20 09:04 Dose: 100 mg Documented by: MINDY Morphine Sulfate (Morphine) 2 mg IVPUSH Q3H PRN PRN Reason: Pain (severe 7-10) Last Admin: 12/13/20 11:18 Dose: 2 mg Documented by: Admin: 12/13/20 04:25 Dose: 2 mg Documented by: Admin: 12/13/20 00:24 Dose: 2 mg Documented by: Admin: 12/12/20 20:23 Dose: 2 mg Documented by: Admin: 12/12/20 08:25 Dose: 2 mg Documented by: Admin: 12/11/20 22:41 Dose: 2 mg Documented by: Admin: 12/11/20 19:32 Dose: 2 mg Documented by: Admin: 12/11/20 15:24 Dose: 2 mg Documented by: Admin: 12/11/20 08:25 Dose: 2 mg Documented by: Admin: 12/10/20 21:46 Dose: 2 mg Documented by: Admin: 12/10/20 16:52 Dose: 2 mg Documented by: MINDY Ondansetron HCl (Zofran) 4 mg IVPUSH Q4H PRN PRN Reason: Nausea Sodium Chloride (Saline Flush) 2.5 ml FLUSH ASDIRECTED PRN PRN Reason: Keep Vein Open Tramadol HCl (Ultram) 50 mg PO Q4H PRN PRN Reason: Pain - Assessment Assessment (Free Text/Narrative):: 1) s/p ORIF right intertrochanteric hip fracture, POD#1 - Plan Plan (Free Text/Narrative):: Just OOB for first time post-operatively, sitting in chair. Will be seen by PT this afternoon and tomorrow. Ambulation ability will help determine discharge needs (discharge home to her daughter's vs penit[facility] facility). Surgical dressing to right hip CDI. I did not remove this as she will not be discharged today. Dressing will be removed and AquaCell bandage will be applied prior to discharge. DVT prophylaxis : ASA 325mg daily Using polar ice to right hip. Discussed with pt weaning off opioids ([place]) d/t s/e of dizziness and constipation. Next time she is in need of a pain pill, she will try Tramadol. Discussed that if this also has adverse effects, for her to start routine Tylenol. Khushi had no additional questions.
--- NOTE | 2020-12-13 15:45 | CR ---
Indication: Intraoperative guidance Technique: Fluoroscopy is provided for right hip ORIF 8 fluoroscopic image(s) saved to PACS for documentation. Fluoroscopy time: 26.7 Radiation dose: 4.14 Findings: Saved images demonstrate right hip intertrochanteric fracture with multiple intraoperative images of ORIF with lag screw in the neck and lateral plate and screw fixation hardware in the diaphysis. Impression: Fluoroscopy provided for right hip ORIF. See procedure report for full details. Dictated by Erasmo Thayer MD @ Dec 13 2020 3:41PM Signed by Dr. Erasmo Thayer @ Dec 13 2020 3:43PM
[2020-12-14] MEDS: Morphine 2 MG/ML SYRINGE IVPUSH PRN (05:50)
[2020-12-14 06:05] LABS: BLOOD UREA NITROGEN,BUN 15 mg/dL (7.0-18.0); CARBON DIOXIDE,CO2 29.3 mmol/L (21.0-32.0); CHLORIDE,CL 105 mmol/L (98-107); GLUCOSE RANDOM 126 mg/dL (74-106); SODIUM,NA 140 mmol/L (136-145)
[2020-12-14] MEDS: Aspirin 325 MG Tab.EC PO SCH (08:38)
[2020-12-14] MEDS: Docusate Sodium Liquid 100 MG/10 ML UD Cup PO SCH (08:38)
--- NOTE | 2020-12-14 08:38 | PCM.PN ---
- General Info Date of Service: 12/14/20 Admission Dx/Problem (Free Text): Right intertrochanteric hip fracture Subjective Update: Patient reports she is doing okay this morning. She is quite flustered as nursing students came into her room to assess her this morning and she had not agreed for them to be in her room. She reports some left rib pain that is intermittent and comes and goes throughout the day. There is no bruising to the site. She was offered x-ray but denies wanting this. She reports pain to her right hip and groin which is worse with movement but is improved since surgery. She is quite flustered and anxious regarding physical therapy as well as moving and going home. Discussed intermediate facility again for rehabilitation which she is adamantly refusing and wants to go home, but yet states that her family may not be able to take care of her completely. Or they do not understand the work it will take. She again was informed of what intermediate facilities can do such as aggressive physical therapy to get her back to normal quickly and then home health and home health PT. Again she continues to really want to go home versus going to rehabilitation. She is voiding well since catheter removal she is tolerating food without nausea. She had a small bowel movement yesterday. She otherwise is doing well. She was counseled on trying to use oral pain medication as she is relying on IV morphine currently. Functional Status: Reports: Pain Controlled, Tolerating Diet, Ambulating, Urinating - Review of Systems General: Reports: Weakness (Generalized) HEENT: Reports: Other (Dry mouth and lips). Denies: Headaches, Sore Throat Pulmonary: Reports: No Symptoms. Denies: Shortness of Breath Cardiovascular: Reports: Other (Left rib pain with palpation or movement). Denies: Chest Pain Gastrointestinal: Reports: No Symptoms. Denies: Abdominal Pain, Nausea, Vomiting Genitourinary: Reports: No Symptoms. Denies: Dysuria, Frequency, Burning Musculoskeletal: Reports: Joint Pain (Right hip and groin pain) Skin: Reports: No Symptoms Neurological: Reports: No Symptoms Psychiatric: Reports: No Symptoms - Patient Data Vitals - Most Recent: Last Vital Signs Temp 98.2 F 12/14/20 07:35 Pulse 88 12/14/20 07:35 Resp 18 12/14/20 07:35 BP 110/63 12/14/20 07:35 Pulse Ox 95 12/14/20 07:35 Weight - Most Recent: 53.5 kg I&O - Last 24 Hours: Intake & Output 12/13/20 12/14/20 12/14/20 22:59 06:59 14:59 Intake Total 450 730 Output Total 200 600 Balance 250 130 Lab Results Last 24 Hours: Laboratory Results - last 24 hr 12/14/20 12/14/20 Range/Units 05:16 05:16 WBC 6.80 (4.0-11.0) K/uL RBC 3.48 L (4.30-5.90) M/uL Hgb 10.3 L (12.0-16.0) g/dL Hct 31.8 L (36.0-46.0) % MCV 91.4 (80.0-98.0) fL MCH 29.6 (27.0-32.0) pg MCHC 32.4 (31.0-37.0) g/dL RDW Std Deviation 40.8 (28.0-62.0) fl RDW Coeff of Hammad 12 (11.0-15.0) % Plt Count 179 (150-400) K/uL MPV 8.80 (7.40-12.00) fL Neut % (Auto) 65.6 (48.0-80.0) % Lymph % (Auto) 18.8 (16.0-40.0) % Long % (Auto) 14.0 (0.0-15.0) % Eos % (Auto) 1.5 (0.0-7.0) % Baso % (Auto) 0.1 (0.0-1.5) % Neut # (Auto) 4.5 (1.4-5.7) K/uL Lymph # (Auto) 1.3 (0.6-2.4) K/uL Long # (Auto) 1.0 H (0.0-0.8) K/uL Eos # (Auto) 0.1 (0.0-0.7) K/uL Baso # (Auto) 0.0 (0.0-0.1) K/uL Nucleated RBC % 0.0 /100WBC Nucleated RBCs # 0 K/uL Sodium 140 (136-145) mmol/L Potassium 4.0 (3.5-5.1) mmol/L Chloride 105 (98-107) mmol/L Carbon Dioxide 29.3 (21.0-32.0) mmol/L BUN 15 (7.0-18.0) mg/dL Creatinine 0.6 (0.6-1.0) mg/dL Est Cr Clr Drug Dosing 62.11 mL/min Estimated GFR (MDRD) > 60.0 ml/min Glucose 126 H (74-106) mg/dL Calcium 8.4 L (8.5-10.1) mg/dL Magnesium 2.0 (1.8-2.4) mg/dL Med Orders - Current: Current Medications Acetaminophen (Tylenol) 650 mg PO Q4H PRN PRN Reason: Pain (Mild 1-3)/fever Albuterol (Proventil Neb Soln) 2.5 mg NEB Q2H PRN PRN Reason: Shortness Of Breath/wheezing Aspirin (Ecotrin) 325 mg PO DAILY [facility] Last Admin: 12/13/20 08:05 Dose: 325 mg Documented by: Bisacodyl (Dulcolax) 10 mg RECTAL DAILY PRN PRN Reason: if no BM after 2 days Docusate Sodium (Colace 50 Mg/5 Ml Liquid) 100 mg PO BID [facility] Last Admin: 12/13/20 22:02 Dose: 100 mg Documented by: Morphine Sulfate (Morphine) 2 mg IVPUSH Q3H PRN PRN Reason: Pain (severe 7-10) Last Admin: 12/14/20 05:50 Dose: 2 mg Documented by: Ondansetron HCl (Zofran) 4 mg IVPUSH Q4H PRN PRN Reason: Nausea Sodium Chloride (Saline Flush) 2.5 ml FLUSH ASDIRECTED PRN PRN Reason: Keep Vein Open Tramadol HCl (Ultram) 50 mg PO Q4H PRN PRN Reason: Pain Discontinued Medications Hydrocodone Bitart/Acetaminophen ([place] 325-5 Mg) 1 tab PO Q4H PRN PRN Reason: Pain (moderate 4-6) Last Admin: 12/11/20 00:13 Dose: 1 tab Documented by: Bupivacaine HCl (Sensorcaine-Mpf 0.5%) Confirm Administered Dose 10 ml .ROUTE .STK-MED ONE Stop: 12/12/20 02:05 Bupivacaine HCl (Sensorcaine-Mpf 0.5%) Confirm Administered Dose 10 ml .ROUTE .[facility]-MED ONE Stop: 12/12/20 08:31 Bupivacaine HCl (Sensorcaine-Mpf 0.5%) Confirm Administered Dose 10 ml .ROUTE .STK-MED ONE Stop: 12/12/20 10:15 Bupivacaine HCl (Marcaine 0.5%) Confirm Administered Dose 30 ml .ROUTE .[facility]-MED ONE Stop: 12/12/20 11:32 Cefazolin Sodium (Ancef) Confirm Administered Dose 1 gm .ROUTE .ST-MED ONE Stop: 12/12/20 08:30 Chloroprocaine HCl (Clorotekal) Confirm Administered Dose 5 ml .ROUTE .STK-MED ONE Stop: 12/13/20 09:19 Docusate Sodium (Colace) 100 mg PO BID [facility] Last Admin: 12/12/20 20:35 Dose: Not Given Documented by: Enoxaparin Sodium (Lovenox) 40 mg SUBCUT Q24H [facility] Stop: 12/11/20 17:31 Last Admin: 12/11/20 16:41 Dose: 40 mg Documented by: Fentanyl (Sublimaze) Confirm Administered Dose 100 mcg .ROUTE .[facility]-MED ONE Stop: 12/12/20 07:24 Lactated Ringer's (Ringers, Lactated) 1,000 mls @ 75 mls/hr IV ASDIRECTED [facility] Last Admin: 12/10/20 14:22 Dose: 75 mls/hr Documented by: Ceftriaxone Sodium/Dextrose 1 (gm/ Premix) 50 mls @ 100 mls/hr IV Q24H [facility] Last Admin: 12/12/20 17:07 Dose: 100 mls/hr Documented by: Lactated Ringer's (Ringers, Lactated) 1,000 mls @ 50 mls/hr IV Q20H [facility] Last Admin: 12/13/20 10:15 Dose: Not Given Documented by: Sodium Chloride (Normal Saline) Confirm Administered Dose 20 mls @ as directed .ROUTE .[facility]-MED ONE Stop: 12/12/20 08:30 Ketamine HCl (Ketalar) Confirm Administered Dose 500 mg .ROUTE .ST-MED ONE Stop: 12/12/20 07:22 Midazolam HCl (Versed 1 Mg/Ml) Confirm Administered Dose 2 mg .ROUTE .STK-MED ONE Stop: 12/12/20 07:22 Morphine Sulfate (Morphine) 2 mg IVPUSH ONETIME ONE Stop: 12/10/20 12:28 Last Admin: 12/10/20 12:27 Dose: 2 mg Documented by: Morphine Sulfate (Morphine) 2 mg IVPUSH ONETIME ONE Stop: 12/10/20 14:16 Last Admin: 12/10/20 14:23 Dose: 2 mg Documented by: Ondansetron HCl (Zofran) Confirm Administered Dose 4 mg .ROUTE .STK-MED ONE Stop: 12/12/20 07:21 Phenylephrine HCl (Handy-Synephrine) Confirm Administered Dose 10 mg .ROUTE .STK- MED ONE Stop: 12/12/20 07:19 Propofol (Diprivan 20 Ml) Confirm Administered Dose 200 mg .ROUTE .STK-MED ONE Stop: 12/12/20 10:53 - Exam Quality Assessment: DVT Prophylaxis. No: Supplemental Oxygen, Urine Catheter General: Alert, Oriented, Cooperative HEENT: No: Mucous Membr. Moist/[place] (Slightly dry) Neck: Supple Lungs: Clear to Auscultation, Normal Respiratory Effort Cardiovascular: Regular Rate, Regular Rhythm GI/Abdominal Exam: Normal Bowel Sounds, Soft, Non-Tender, No Distention, No Mass Back Exam: Normal Inspection, Full Range of Motion. No: CVA Tenderness (L), CVA Tenderness (R) Extremities: Normal Inspection, No Pedal Edema, Joint Swelling (Tenderness and mild swelling to right hip) Skin: Warm, Dry, Other Wound/Incisions: Healing Well, Dressing Dry and Intact (Right hip), No Drainage. No: Erythema Neurological: No New Focal Deficit Psy/Mental Status: Alert, Normal Affect, Anxious Sepsis Event Note - Evaluation Sepsis Screening Result: No Definite Risk - Focused Exam Vital Signs: Vital Signs Temp Pulse Resp BP Pulse Ox 12/14/20 07:35 98.2 F 88 18 110/63 95 12/14/20 04:13 98.5 F 88 16 111/56 L 94 L 12/14/20 00:00 98.5 F 85 17 110/58 L 96 - Problem List & Annotations (1) Intertrochanteric fracture of right hip SNOMED Code(s): 978649294, 76563198879732474 Code(s): S72.141A - DISPLACED INTERTROCHANTERIC FRACTURE OF RIGHT FEMUR, INIT Status: Acute Current Visit: Yes Qualifiers: Encounter type: initial encounter Fracture type: closed Fracture alignment: nondisplaced Qualified Code(s): S72.144A - Nondisplaced intertrochanteric fracture of right femur, initial encounter for closed fracture (2) Fall SNOMED Code(s): 8365272, 591552443 Code(s): W19.XXXA - UNSPECIFIED FALL, INITIAL ENCOUNTER Status: Acute Current Visit: Yes (3) UTI (urinary tract infection) SNOMED Code(s): 64433273 Code(s): N39.0 - URINARY TRACT INFECTION, SITE NOT SPECIFIED Status: Acute Current Visit: No Qualifiers: Urinary tract infection type: site unspecified Hematuria presence: without hematuria Qualified Code(s): N39.0 - Urinary tract infection, site not specified (4) Asthma SNOMED Code(s): 260100594 Code(s): J45.909 - UNSPECIFIED ASTHMA, UNCOMPLICATED Status: Chronic Current Visit: Yes Qualifiers: Asthma severity: mild Asthma persistence: intermittent Asthma complication type: uncomplicated Qualified Code(s): J45.20 - Mild intermittent asthma, uncomplicated - Problem List Review Problem List Initiated/Reviewed/Updated: Yes - My Orders Last 24 Hours: My Active Orders 12/13/20 09:00 Docusate Sodium [Colace 50 MG/5 ML Liquid] 100 mg PO BID 12/13/20 09:22 traMADol [Ultram] 50 mg PO Q4H PRN 12/13/20 14:32 Up to Chair [RC] ASDIRECTED 12/15/20 05:11 BASIC METABOLIC PANEL,BMP [CHEM] AM CBC WITH AUTO DIFF [HEME] AM MAGNESIUM [CHEM] AM - Plan Plan:: This 80-year-old female admitted with right intertrochanteric hip fracture after mechanical fall 1. Right intertrochanteric hip fracture -POD #2 -Dr. Corbin orthopedics consulted -Tylenol as needed pain -Patient did not like [place] changed to tramadol but she has yet to try this as she is nervous. Counseled on how this will lengthen out pain management. Counseled on needing to discontinue morphine IV as she will not go home with this. -Morphine as needed pain -PT to be consulted for ambulation -Singer catheter removed and has voided since -Continue bowel regimen -Continue aspirin per orthopedics 2. Asthma -Albuterol inhaler as needed VTE prophylaxis: ASA daily per orthopedics Disposition: 3 to 4 days pending improvement. Will see how she does with physical therapy today to determine disposition of either home with home health and physical therapy or to intermediate rehab. She continues to be very adamant that she would like to go home with home health and physical therapy versus going to intermediate rehab. Will discuss with family today after physical therapy evaluation.
[2020-12-14] MEDS: traMADol 50 MG Tab PO PRN ×2 (10:33→20:04)
--- NOTE | 2020-12-14 12:46 | PCM.SURGPN ---
- General Info Date of Service: 12/14/20 (8545) Date of Surgery/Procedure: 12/12/20 (s/p ORIF ) POD#: 2 Admission Diagnosis/Problem: Hip fracture, intertrochanteric Functional Status: Reports: Pain Controlled (Reports tried Tramadol this morning and it helped to control her pain and she had no adverse effects with use. ), Tolerating Diet (sitting in chair eating lunch), Ambulating (WBAT with staff, with use of FWW) - Review of Systems General: Denies: Fever Gastrointestinal: Denies: Nausea, Vomiting Psychiatric: Reports: Anxiety. Denies: Confusion - Patient Data Vitals - Most Recent: Last Vital Signs Temp 36.8 C 12/14/20 07:35 Pulse 88 12/14/20 07:35 Resp 18 12/14/20 07:35 BP 110/63 12/14/20 07:35 Pulse Ox 95 12/14/20 07:35 Weight - Most Recent: 53.5 kg I&O - Last 24 Hours: Intake & Output 12/13/20 12/14/20 12/14/20 22:59 06:59 14:59 Intake Total 450 730 Output Total 200 600 Balance 250 130 Lab Results Last 24 Hrs: Laboratory Results - last 24 hr 12/14/20 12/14/20 Range/Units 05:16 05:16 WBC 6.80 (4.0-11.0) K/uL RBC 3.48 L (4.30-5.90) M/uL Hgb 10.3 L (12.0-16.0) g/dL Hct 31.8 L (36.0-46.0) % MCV 91.4 (80.0-98.0) fL MCH 29.6 (27.0-32.0) pg MCHC 32.4 (31.0-37.0) g/dL RDW Std Deviation 40.8 (28.0-62.0) fl RDW Coeff of Hammad 12 (11.0-15.0) % Plt Count 179 (150-400) K/uL MPV 8.80 (7.40-12.00) fL Neut % (Auto) 65.6 (48.0-80.0) % Lymph % (Auto) 18.8 (16.0-40.0) % [place] % (Auto) 14.0 (0.0-15.0) % Eos % (Auto) 1.5 (0.0-7.0) % Baso % (Auto) 0.1 (0.0-1.5) % Neut # (Auto) 4.5 (1.4-5.7) K/uL Lymph # (Auto) 1.3 (0.6-2.4) K/uL [place] # (Auto) 1.0 H (0.0-0.8) K/uL Eos # (Auto) 0.1 (0.0-0.7) K/uL Baso # (Auto) 0.0 (0.0-0.1) K/uL Nucleated RBC % 0.0 /100WBC Nucleated RBCs # 0 K/uL Sodium 140 (136-145) mmol/L Potassium 4.0 (3.5-5.1) mmol/L Chloride 105 (98-107) mmol/L Carbon Dioxide 29.3 (21.0-32.0) mmol/L BUN 15 (7.0-18.0) mg/dL Creatinine 0.6 (0.6-1.0) mg/dL Est Cr Clr Drug Dosing 62.11 mL/min Estimated GFR (MDRD) > 60.0 ml/min Glucose 126 H (74-106) mg/dL Calcium 8.4 L (8.5-10.1) mg/dL Magnesium 2.0 (1.8-2.4) mg/dL Med Orders - Current: Current Medications Acetaminophen (Tylenol) 650 mg PO Q4H PRN PRN Reason: Pain (Mild 1-3)/fever Albuterol (Proventil Neb Soln) 2.5 mg NEB Q2H PRN PRN Reason: Shortness Of Breath/wheezing Aspirin (Ecotrin) 325 mg PO DAILY [facility] Last Admin: 12/14/20 08:38 Dose: 325 mg Documented by: Bisacodyl (Dulcolax) 10 mg RECTAL DAILY PRN PRN Reason: if no BM after 2 days Docusate Sodium (Colace 50 Mg/5 Ml Liquid) 100 mg PO BID [facility] Last Admin: 12/14/20 08:38 Dose: 100 mg Documented by: Morphine Sulfate (Morphine) 2 mg IVPUSH Q3H PRN PRN Reason: Pain (severe 7-10) Last Admin: 12/14/20 05:50 Dose: 2 mg Documented by: Ondansetron HCl (Zofran) 4 mg IVPUSH Q4H PRN PRN Reason: Nausea Sodium Chloride (Saline Flush) 2.5 ml FLUSH ASDIRECTED PRN PRN Reason: Keep Vein Open Tramadol HCl (Ultram) 50 mg PO Q4H PRN PRN Reason: Pain Last Admin: 12/14/20 10:33 Dose: 50 mg Documented by: Discontinued Medications Hydrocodone Bitart/Acetaminophen ([place] 325-5 Mg) 1 tab PO Q4H PRN PRN Reason: Pain (moderate 4-6) Last Admin: 12/11/20 00:13 Dose: 1 tab Documented by: Bupivacaine HCl (Sensorcaine-Mpf 0.5%) Confirm Administered Dose 10 ml .ROUTE .STK-MED ONE Stop: 12/12/20 02:05 Bupivacaine HCl (Sensorcaine-Mpf 0.5%) Confirm Administered Dose 10 ml .ROUTE .STK-MED ONE Stop: 12/12/20 08:31 Bupivacaine HCl (Sensorcaine-Mpf 0.5%) Confirm Administered Dose 10 ml .ROUTE .STK-MED ONE Stop: 12/12/20 10:15 Bupivacaine HCl (Marcaine 0.5%) Confirm Administered Dose 30 ml .ROUTE .STK-MED ONE Stop: 12/12/20 11:32 Cefazolin Sodium (Ancef) Confirm Administered Dose 1 gm .ROUTE .STK-MED ONE Stop: 12/12/20 08:30 Chloroprocaine HCl (Clorotekal) Confirm Administered Dose 5 ml .ROUTE .STK-MED ONE Stop: 12/13/20 09:19 Docusate Sodium (Colace) 100 mg PO BID [facility] Last Admin: 12/12/20 20:35 Dose: Not Given Documented by: Enoxaparin Sodium (Lovenox) 40 mg SUBCUT Q24H [facility] Stop: 12/11/20 17:31 Last Admin: 12/11/20 16:41 Dose: 40 mg Documented by: Fentanyl (Sublimaze) Confirm Administered Dose 100 mcg .ROUTE .STK-MED ONE Stop: 12/12/20 07:24 Lactated Ringer's (Ringers, Lactated) 1,000 mls @ 75 mls/hr IV ASDIRECTED [facility] Last Admin: 12/10/20 14:22 Dose: 75 mls/hr Documented by: Ceftriaxone Sodium/Dextrose 1 (gm/ Premix) 50 mls @ 100 mls/hr IV Q24H [facility] Last Admin: 12/12/20 17:07 Dose: 100 mls/hr Documented by: Lactated Ringer's (Ringers, Lactated) 1,000 mls @ 50 mls/hr IV Q20H [facility] Last Admin: 12/13/20 10:15 Dose: Not Given Documented by: Sodium Chloride (Normal Saline) Confirm Administered Dose 20 mls @ as directed .ROUTE .STK-MED ONE Stop: 12/12/20 08:30 Ketamine HCl (Ketalar) Confirm Administered Dose 500 mg .ROUTE .STK-MED ONE Stop: 12/12/20 07:22 Midazolam HCl (Versed 1 Mg/Ml) Confirm Administered Dose 2 mg .ROUTE .STK-MED ONE Stop: 12/12/20 07:22 Morphine Sulfate (Morphine) 2 mg IVPUSH ONETIME ONE Stop: 12/10/20 12:28 Last Admin: 12/10/20 12:27 Dose: 2 mg Documented by: Morphine Sulfate (Morphine) 2 mg IVPUSH ONETIME ONE Stop: 12/10/20 14:16 Last Admin: 12/10/20 14:23 Dose: 2 mg Documented by: Ondansetron HCl (Zofran) Confirm Administered Dose 4 mg .ROUTE .STK-MED ONE Stop: 12/12/20 07:21 Phenylephrine HCl (Handy-Synephrine) Confirm Administered Dose 10 mg .ROUTE .STK- MED ONE Stop: 12/12/20 07:19 Propofol (Diprivan 20 Ml) Confirm Administered Dose 200 mg .ROUTE .STK-MED ONE Stop: 12/12/20 10:53 - Exam Wound/Incisions: Dressing Dry and Intact (surgical dressing CDI without any shadows of drainage), No Drainage Quality Assessment: DVT Prophylaxis (ASA 325mg daily) General: Alert, Oriented, Cooperative, No Acute Distress, Other (seated in chair in room, eating lunch) HEENT: Pupils Equal Extremities: No Pedal Edema, Other (sensation grossly intact to LE. Actively wiggles toes and ankle. Polar ice on right thigh). No: Pedal Edema Neurological: Normal Speech Psy/Mental Status: Alert Sepsis Event Note - Evaluation Sepsis Screening Result: No Definite Risk - Focused Exam Vital Signs: Vital Signs Temp Pulse Resp BP Pulse Ox 12/14/20 07:35 36.8 C 88 18 110/63 95 12/14/20 04:13 36.9 C 88 16 111/56 L 94 L - Problem List Review Problem List Initiated/Reviewed/Updated: Yes - My Orders Last 24 Hours: Active Orders 24 hr Category Date Time Status Incentive Spirometry [RT Incentive Spirometry] [] Care 12/14/20 11:01 Active Q1HWA Up to Chair [] ASDIRECTED Care 12/13/20 14:32 Active BASIC METABOLIC PANEL,BMP [CHEM] AM Lab 12/15/20 05:11 Ordered CBC WITH AUTO DIFF [HEME] AM Lab 12/15/20 05:11 Ordered MAGNESIUM [CHEM] AM Lab 12/15/20 05:11 Ordered Medication Orders Acetaminophen (Tylenol) 650 mg PO Q4H PRN PRN Reason: Pain (Mild 1-3)/fever Albuterol (Proventil Neb Soln) 2.5 mg NEB Q2H PRN PRN Reason: Shortness Of Breath/wheezing Aspirin (Ecotrin) 325 mg PO DAILY [facility] Last Admin: 12/14/20 08:38 Dose: 325 mg Documented by: Admin: 12/13/20 08:05 Dose: 325 mg Documented by: MINDY Bisacodyl (Dulcolax) 10 mg RECTAL DAILY PRN PRN Reason: if no BM after 2 days Docusate Sodium (Colace 50 Mg/5 Ml Liquid) 100 mg PO BID [facility] Last Admin: 12/14/20 08:38 Dose: 100 mg Documented by: Admin: 12/13/20 22:02 Dose: 100 mg Documented by: Admin: 12/13/20 09:04 Dose: 100 mg Documented by: MINDY Morphine Sulfate (Morphine) 2 mg IVPUSH Q3H PRN PRN Reason: Pain (severe 7-10) Last Admin: 12/14/20 05:50 Dose: 2 mg Documented by: Admin: 12/13/20 22:02 Dose: 2 mg Documented by: Admin: 12/13/20 11:18 Dose: 2 mg Documented by: Admin: 12/13/20 04:25 Dose: 2 mg Documented by: Admin: 12/13/20 00:24 Dose: 2 mg Documented by: Admin: 12/12/20 20:23 Dose: 2 mg Documented by: Admin: 12/12/20 08:25 Dose: 2 mg Documented by: Admin: 12/11/20 22:41 Dose: 2 mg Documented by: Admin: 12/11/20 19:32 Dose: 2 mg Documented by: Admin: 12/11/20 15:24 Dose: 2 mg Documented by: [email or web address] Admin: 12/11/20 08:25 Dose: 2 mg Documented by: Admin: 12/10/20 21:46 Dose: 2 mg Documented by: Admin: 12/10/20 16:52 Dose: 2 mg Documented by: MINDY Ondansetron HCl (Zofran) 4 mg IVPUSH Q4H PRN PRN Reason: Nausea Sodium Chloride (Saline Flush) 2.5 ml FLUSH ASDIRECTED PRN PRN Reason: Keep Vein Open Tramadol HCl (Ultram) 50 mg PO Q4H PRN PRN Reason: Pain Last Admin: 12/14/20 10:33 Dose: 50 mg Documented by: ANGELINA - Assessment Assessment (Free Text/Narrative):: 1) s/p ORIF Right intertrochanteric hip fracture 2) post-surgical anemia - Plan Plan (Free Text/Narrative):: Overall, Khushi is doing well. Afebrile. Tolerating food/fluids. Surgical dressing CDI to right upper leg. Using Ice to minimize pain. Tolerating Tramadol for pain, which provided relief but caused no drowsiness or dizziness. Discussed avoiding taking Morphine IV, as to help determine pain management once home. States she has walked short distance (bed to chair) in her room with staff and walker, then worked on leg exercises with the therapist this morning. Spoke with case management, with plan for discharge home with her daughter on Sunday. Continue PT for strengthening. ASA 325mg for VTE prophylaxis, along with ambulation and SCDS when in bed. Khushi had no additional questions. Plan is to remove surgical dressing tomorrow and apply AquaCell bandage.
[2020-12-15] MEDS: traMADol 50 MG Tab PO PRN ×4 (03:48→23:58)
[2020-12-15 07:23] LABS: BLOOD UREA NITROGEN,BUN 20 mg/dL (7.0-18.0); CARBON DIOXIDE,CO2 31.8 mmol/L (21.0-32.0); CHLORIDE,CL 105 mmol/L (98-107); GLUCOSE RANDOM 114 mg/dL (74-106); POTASSIUM,K 4.2 mmol/L (3.5-5.1); SODIUM,NA 139 mmol/L (136-145)
--- NOTE | 2020-12-15 07:48 | PCM.PN ---
- General Info Date of Service: 12/15/20 Admission Dx/Problem (Free Text): Right intertrochanteric hip fracture Subjective Update: Madelaine reports she is doing well today. Reports pain is controlled with tramadol and has not used morphine since yesterday morning. She is up with assistance of 1 and walker to chair and has been sitting in the chair for meals and has ambulated. She denies any chest pain or shortness of breath. No cough fever or chills. No palpitations. She does report pain is mostly in the inner thigh and right groin. Eager to continue with physical therapy and go home on Sunday. Functional Status: Reports: Pain Controlled, Tolerating Diet, Ambulating, Urinating - Review of Systems General: Denies: Weakness, Fatigue HEENT: Reports: No Symptoms. Denies: Contact Lenses, Headaches, Visual Changes Pulmonary: Reports: No Symptoms. Denies: Shortness of Breath Cardiovascular: Reports: No Symptoms. Denies: Chest Pain Gastrointestinal: Reports: No Symptoms. Denies: Abdominal Pain, Constipation, Nausea, Vomiting Genitourinary: Reports: No Symptoms. Denies: Dysuria, Frequency, Burning Musculoskeletal: Reports: Joint Pain (Right hip/groin) Skin: Reports: No Symptoms Neurological: Reports: No Symptoms Psychiatric: Reports: No Symptoms - Patient Data Vitals - Most Recent: Last Vital Signs Temp 98.6 F 12/15/20 04:21 Pulse 81 12/15/20 04:21 Resp 16 12/15/20 04:21 BP 107/52 L 12/15/20 04:21 Pulse Ox 95 12/15/20 04:21 Weight - Most Recent: 53.5 kg I&O - Last 24 Hours: Intake & Output 12/14/20 12/15/20 12/15/20 22:59 06:59 14:59 Intake Total 600 450 Output Total 860 Balance -260 450 Lab Results Last 24 Hours: Laboratory Results - last 24 hr 12/15/20 12/15/20 Range/Units 06:57 06:57 WBC 5.62 (4.0-11.0) K/uL RBC 3.40 L (4.30-5.90) M/uL Hgb 10.1 L (12.0-16.0) g/dL Hct 31.5 L (36.0-46.0) % MCV 92.6 (80.0-98.0) fL MCH 29.7 (27.0-32.0) pg MCHC 32.1 (31.0-37.0) g/dL RDW Std Deviation 42.3 (28.0-62.0) fl RDW Coeff of Hammad 12 (11.0-15.0) % Plt Count 205 (150-400) K/uL MPV 8.70 (7.40-12.00) fL Neut % (Auto) 54.7 (48.0-80.0) % Lymph % (Auto) 26.2 (16.0-40.0) % [place] % (Auto) 13.2 (0.0-15.0) % Eos % (Auto) 5.7 (0.0-7.0) % Baso % (Auto) 0.2 (0.0-1.5) % Neut # (Auto) 3.1 (1.4-5.7) K/uL Lymph # (Auto) 1.5 (0.6-2.4) K/uL [place] # (Auto) 0.7 (0.0-0.8) K/uL Eos # (Auto) 0.3 (0.0-0.7) K/uL Baso # (Auto) 0.0 (0.0-0.1) K/uL Nucleated RBC % 0.0 /100WBC Nucleated RBCs # 0 K/uL Sodium 139 (136-145) mmol/L Potassium 4.2 (3.5-5.1) mmol/L Chloride 105 (98-107) mmol/L Carbon Dioxide 31.8 (21.0-32.0) mmol/L BUN 20 H (7.0-18.0) mg/dL Creatinine 0.7 (0.6-1.0) mg/dL Est Cr Clr Drug Dosing 53.23 mL/min Estimated GFR (MDRD) > 60.0 ml/min Glucose 114 H (74-106) mg/dL Calcium 8.7 (8.5-10.1) mg/dL Magnesium 2.1 (1.8-2.4) mg/dL Med Orders - Current: Current Medications Acetaminophen (Tylenol) 650 mg PO Q4H PRN PRN Reason: Pain (Mild 1-3)/fever Albuterol (Proventil Neb Soln) 2.5 mg NEB Q2H PRN PRN Reason: Shortness Of Breath/wheezing Aspirin (Ecotrin) 325 mg PO DAILY [facility] Last Admin: 12/14/20 08:38 Dose: 325 mg Documented by: Bisacodyl (Dulcolax) 10 mg RECTAL DAILY PRN PRN Reason: if no BM after 2 days Docusate Sodium (Colace) 100 mg PO DAILY [facility] Morphine Sulfate (Morphine) 2 mg IVPUSH Q3H PRN PRN Reason: Pain (severe 7-10) Last Admin: 12/14/20 05:50 Dose: 2 mg Documented by: Ondansetron HCl (Zofran) 4 mg IVPUSH Q4H PRN PRN Reason: Nausea Sodium Chloride (Saline Flush) 2.5 ml FLUSH ASDIRECTED PRN PRN Reason: Keep Vein Open Tramadol HCl (Ultram) 50 mg PO Q4H PRN PRN Reason: Pain Last Admin: 12/15/20 03:48 Dose: 50 mg Documented by: Discontinued Medications Hydrocodone Bitart/Acetaminophen ([place] 325-5 Mg) 1 tab PO Q4H PRN PRN Reason: Pain (moderate 4-6) Last Admin: 12/11/20 00:13 Dose: 1 tab Documented by: Bupivacaine HCl (Sensorcaine-Mpf 0.5%) Confirm Administered Dose 10 ml .ROUTE .STK-MED ONE Stop: 12/12/20 02:05 Bupivacaine HCl (Sensorcaine-Mpf 0.5%) Confirm Administered Dose 10 ml .ROUTE .STK-MED ONE Stop: 12/12/20 08:31 Bupivacaine HCl (Sensorcaine-Mpf 0.5%) Confirm Administered Dose 10 ml .ROUTE .STK-MED ONE Stop: 12/12/20 10:15 Bupivacaine HCl (Marcaine 0.5%) Confirm Administered Dose 30 ml .ROUTE .STK-MED ONE Stop: 12/12/20 11:32 Cefazolin Sodium (Ancef) Confirm Administered Dose 1 gm .ROUTE .STK-MED ONE Stop: 12/12/20 08:30 Chloroprocaine HCl (Clorotekal) Confirm Administered Dose 5 ml .ROUTE .STK-MED ONE Stop: 12/13/20 09:19 Docusate Sodium (Colace) 100 mg PO BID [facility] Last Admin: 12/12/20 20:35 Dose: Not Given Documented by: Docusate Sodium (Colace 50 Mg/5 Ml Liquid) 100 mg PO BID [facility] Last Admin: 12/14/20 08:38 Dose: 100 mg Documented by: Enoxaparin Sodium (Lovenox) 40 mg SUBCUT Q24H [facility] Stop: 12/11/20 17:31 Last Admin: 12/11/20 16:41 Dose: 40 mg Documented by: Fentanyl (Sublimaze) Confirm Administered Dose 100 mcg .ROUTE .STK-MED ONE Stop: 12/12/20 07:24 Lactated Ringer's (Ringers, Lactated) 1,000 mls @ 75 mls/hr IV ASDIRECTED [facility] Last Admin: 12/10/20 14:22 Dose: 75 mls/hr Documented by: Ceftriaxone Sodium/Dextrose 1 (gm/ Premix) 50 mls @ 100 mls/hr IV Q24H [facility] Last Admin: 12/12/20 17:07 Dose: 100 mls/hr Documented by: Lactated Ringer's (Ringers, Lactated) 1,000 mls @ 50 mls/hr IV Q20H [facility] Last Admin: 12/13/20 10:15 Dose: Not Given Documented by: Sodium Chloride (Normal Saline) Confirm Administered Dose 20 mls @ as directed .ROUTE .STK-MED ONE Stop: 12/12/20 08:30 Ketamine HCl (Ketalar) Confirm Administered Dose 500 mg .ROUTE .STK-MED ONE Stop: 12/12/20 07:22 Midazolam HCl (Versed 1 Mg/Ml) Confirm Administered Dose 2 mg .ROUTE .STK-MED ONE Stop: 12/12/20 07:22 Morphine Sulfate (Morphine) 2 mg IVPUSH ONETIME ONE Stop: 12/10/20 12:28 Last Admin: 12/10/20 12:27 Dose: 2 mg Documented by: Morphine Sulfate (Morphine) 2 mg IVPUSH ONETIME ONE Stop: 12/10/20 14:16 Last Admin: 12/10/20 14:23 Dose: 2 mg Documented by: Ondansetron HCl (Zofran) Confirm Administered Dose 4 mg .ROUTE .STK-MED ONE Stop: 12/12/20 07:21 Phenylephrine HCl (Handy-Synephrine) Confirm Administered Dose 10 mg .ROUTE .STK- MED ONE Stop: 12/12/20 07:19 Propofol (Diprivan 20 Ml) Confirm Administered Dose 200 mg .ROUTE .STK-MED ONE Stop: 12/12/20 10:53 - Exam Quality Assessment: DVT Prophylaxis. No: Supplemental Oxygen, Urine Catheter General: Alert, Oriented, Cooperative, No Acute Distress Neck: Supple Lungs: Clear to Auscultation, Normal Respiratory Effort Cardiovascular: Regular Rate, Regular Rhythm GI/Abdominal Exam: Normal Bowel Sounds, Soft, Non-Tender, No Distention Back Exam: Normal Inspection, Full Range of Motion Extremities: Normal Inspection, Normal Range of Motion, No Pedal Edema, Joint Swelling (Mild erythema noted to right hip likely secondary to postop.) Skin: Other (Bruising noted to medial thigh/groin on right.) Wound/Incisions: Dressing Dry and Intact (Marly from Ortho will be changing dressing today.). No: Erythema Neurological: No New Focal Deficit Psy/Mental Status: Alert, Normal Affect, Normal Mood Sepsis Event Note - Evaluation Sepsis Screening Result: No Definite Risk - Focused Exam Vital Signs: Vital Signs Temp Pulse Resp BP Pulse Ox 12/15/20 04:21 98.6 F 81 16 107/52 L 95 12/15/20 00:29 98.6 F 79 16 101/56 L 94 L 12/14/20 20:02 98.8 F 88 17 107/52 L 94 L - Problem List & Annotations (1) Intertrochanteric fracture of right hip SNOMED Code(s): 434666376, 02864784677836872 Code(s): S72.141A - DISPLACED INTERTROCHANTERIC FRACTURE OF RIGHT FEMUR, INIT Status: Acute Current Visit: Yes Qualifiers: Encounter type: initial encounter Fracture type: closed Fracture alignment: nondisplaced Qualified Code(s): S72.144A - Nondisplaced intertrochanteric fracture of right femur, initial encounter for closed fracture (2) Fall SNOMED Code(s): 6842893, 707647395 Code(s): W19.XXXA - UNSPECIFIED FALL, INITIAL ENCOUNTER Status: Acute Current Visit: Yes (3) UTI (urinary tract infection) SNOMED Code(s): 53348781 Code(s): N39.0 - URINARY TRACT INFECTION, SITE NOT SPECIFIED Status: Acute Current Visit: No Qualifiers: Urinary tract infection type: site unspecified Hematuria presence: without hematuria Qualified Code(s): N39.0 - Urinary tract infection, site not specified (4) Asthma SNOMED Code(s): 958689903 Code(s): J45.909 - UNSPECIFIED ASTHMA, UNCOMPLICATED Status: Chronic Current Visit: Yes Qualifiers: Asthma severity: mild Asthma persistence: intermittent Asthma compli cation type: uncomplicated Qualified Code(s): J45.20 - Mild intermittent asthma, uncomplicated - Problem List Review Problem List Initiated/Reviewed/Updated: Yes - My Orders Last 24 Hours: My Active Orders 12/14/20 11:01 Incentive Spirometry [RT Incentive Spirometry] [RC] Q1HWA 12/15/20 09:00 Docusate Sodium [Colace] 100 mg PO DAILY - Plan Plan:: This 80-year-old female admitted with right intertrochanteric hip fracture after mechanical fall 1. Right intertrochanteric hip fracture -POD #3 -Dr. Corbin orthopedics consulted -Tylenol as needed pain -Tramadol is helping pain and patient did not have any bad side effects. -We will discontinue morphine -PT consulted for ambulation -Continue bowel regimen, will decrease Colace to once daily as she had a large loose bowel movement last night. -Continue aspirin per orthopedics, will need to continue for total of 3 months 2. Asthma -Albuterol inhaler as needed VTE prophylaxis: ASA daily per orthopedics Disposition: 3 to 4 days pending improvement. Likely discharge home on Sunday. Discussions with family yesterday from myself as well as case management regarding needs at home. Family was considering [facility] but patient is very adamant she does not want this and family feels they are able to provide care at home along with home health. Will consult home health for PT OT as well as nursing cares.
[2020-12-15] MEDS: Aspirin 325 MG Tab.EC PO SCH (08:07)
[2020-12-15] MEDS: Docusate Sodium 100 MG Cap PO SCH (08:08)
--- NOTE | 2020-12-15 08:17 | PCM.SURGPN ---
- General Info Date of Service: 12/15/20 Date of Surgery/Procedure: 12/12/20 (ORIF right intertrochanteric hip fracture) POD#: 3 Admission Diagnosis/Problem: Hip fracture, intertrochanteric Functional Status: Reports: Pain Controlled (pain is tolerable with Tramadol), Tolerating Diet, Ambulating (with staff assist and FWW) - Review of Systems General: Denies: Fever Musculoskeletal: Reports: Other (postoperative right hip pain) Skin: Reports: Bruising (small amount of bruising lateral side of surgical incision) Psychiatric: Denies: Confusion - Patient Data Vitals - Most Recent: Last Vital Signs Temp 37.0 C 12/15/20 04:21 Pulse 81 12/15/20 04:21 Resp 16 12/15/20 04:21 BP 107/52 L 12/15/20 04:21 Pulse Ox 95 12/15/20 04:21 Weight - Most Recent: 53.5 kg I&O - Last 24 Hours: Intake & Output 12/14/20 12/15/20 12/15/20 22:59 06:59 14:59 Intake Total 600 450 Output Total 860 Balance -260 450 Lab Results Last 24 Hrs: Laboratory Results - last 24 hr 12/15/20 12/15/20 Range/Units 06:57 06:57 WBC 5.62 (4.0-11.0) K/uL RBC 3.40 L (4.30-5.90) M/uL Hgb 10.1 L (12.0-16.0) g/dL Hct 31.5 L (36.0-46.0) % MCV 92.6 (80.0-98.0) fL MCH 29.7 (27.0-32.0) pg MCHC 32.1 (31.0-37.0) g/dL RDW Std Deviation 42.3 (28.0-62.0) fl RDW Coeff of Hammad 12 (11.0-15.0) % Plt Count 205 (150-400) K/uL MPV 8.70 (7.40-12.00) fL Neut % (Auto) 54.7 (48.0-80.0) % Lymph % (Auto) 26.2 (16.0-40.0) % [place] % (Auto) 13.2 (0.0-15.0) % Eos % (Auto) 5.7 (0.0-7.0) % Baso % (Auto) 0.2 (0.0-1.5) % Neut # (Auto) 3.1 (1.4-5.7) K/uL Lymph # (Auto) 1.5 (0.6-2.4) K/uL [place] # (Auto) 0.7 (0.0-0.8) K/uL Eos # (Auto) 0.3 (0.0-0.7) K/uL Baso # (Auto) 0.0 (0.0-0.1) K/uL Nucleated RBC % 0.0 /100WBC Nucleated RBCs # 0 K/uL Sodium 139 (136-145) mmol/L Potassium 4.2 (3.5-5.1) mmol/L Chloride 105 (98-107) mmol/L Carbon Dioxide 31.8 (21.0-32.0) mmol/L BUN 20 H (7.0-18.0) mg/dL Creatinine 0.7 (0.6-1.0) mg/dL Est Cr Clr Drug Dosing 53.23 mL/min Estimated GFR (MDRD) > 60.0 ml/min Glucose 114 H (74-106) mg/dL Calcium 8.7 (8.5-10.1) mg/dL Magnesium 2.1 (1.8-2.4) mg/dL Med Orders - Current: Current Medications Acetaminophen (Tylenol) 650 mg PO Q4H PRN PRN Reason: Pain (Mild 1-3)/fever Albuterol (Proventil Neb Soln) 2.5 mg NEB Q2H PRN PRN Reason: Shortness Of Breath/wheezing Aspirin (Ecotrin) 325 mg PO DAILY [facility] Last Admin: 12/15/20 08:07 Dose: 325 mg Documented by: Bisacodyl (Dulcolax) 10 mg RECTAL DAILY PRN PRN Reason: if no BM after 2 days Docusate Sodium (Colace) 100 mg PO DAILY [facility] Last Admin: 12/15/20 08:08 Dose: Not Given Documented by: Morphine Sulfate (Morphine) 2 mg IVPUSH Q3H PRN PRN Reason: Pain (severe 7-10) Last Admin: 12/14/20 05:50 Dose: 2 mg Documented by: Ondansetron HCl (Zofran) 4 mg IVPUSH Q4H PRN PRN Reason: Nausea Sodium Chloride (Saline Flush) 2.5 ml FLUSH ASDIRECTED PRN PRN Reason: Keep Vein Open Tramadol HCl (Ultram) 50 mg PO Q4H PRN PRN Reason: Pain Last Admin: 12/15/20 08:01 Dose: 50 mg Documented by: Discontinued Medications Hydrocodone Bitart/Acetaminophen ([place] 325-5 Mg) 1 tab PO Q4H PRN PRN Reason: Pain (moderate 4-6) Last Admin: 12/11/20 00:13 Dose: 1 tab Documented by: Bupivacaine HCl (Sensorcaine-Mpf 0.5%) Confirm Administered Dose 10 ml .ROUTE .STK-MED ONE Stop: 12/12/20 02:05 Bupivacaine HCl (Sensorcaine-Mpf 0.5%) Confirm Administered Dose 10 ml .ROUTE .STK-MED ONE Stop: 12/12/20 08:31 Bupivacaine HCl (Sensorcaine-Mpf 0.5%) Confirm Administered Dose 10 ml .ROUTE .STK-MED ONE Stop: 12/12/20 10:15 Bupivacaine HCl (Marcaine 0.5%) Confirm Administered Dose 30 ml .ROUTE .STK-MED ONE Stop: 12/12/20 11:32 Cefazolin Sodium (Ancef) Confirm Administered Dose 1 gm .ROUTE .STK-MED ONE Stop: 12/12/20 08:30 Chloroprocaine HCl (Clorotekal) Confirm Administered Dose 5 ml .ROUTE .STK-MED ONE Stop: 12/13/20 09:19 Docusate Sodium (Colace) 100 mg PO BID [facility] Last Admin: 12/12/20 20:35 Dose: Not Given Documented by: Docusate Sodium (Colace 50 Mg/5 Ml Liquid) 100 mg PO BID [facility] Last Admin: 12/14/20 08:38 Dose: 100 mg Documented by: Enoxaparin Sodium (Lovenox) 40 mg SUBCUT Q24H [facility] Stop: 12/11/20 17:31 Last Admin: 12/11/20 16:41 Dose: 40 mg Documented by: Fentanyl (Sublimaze) Confirm Administered Dose 100 mcg .ROUTE .STK-MED ONE Stop: 12/12/20 07:24 Lactated Ringer's (Ringers, Lactated) 1,000 mls @ 75 mls/hr IV ASDIRECTED [facility] Last Admin: 12/10/20 14:22 Dose: 75 mls/hr Documented by: Ceftriaxone Sodium/Dextrose 1 (gm/ Premix) 50 mls @ 100 mls/hr IV Q24H [facility] Last Admin: 12/12/20 17:07 Dose: 100 mls/hr Documented by: Lactated Ringer's (Ringers, Lactated) 1,000 mls @ 50 mls/hr IV Q20H [facility] Last Admin: 12/13/20 10:15 Dose: Not Given Documented by: Sodium Chloride (Normal Saline) Confirm Administered Dose 20 mls @ as directed .ROUTE .STK-MED ONE Stop: 12/12/20 08:30 Ketamine HCl (Ketalar) Confirm Administered Dose 500 mg .ROUTE .STK-MED ONE Stop: 12/12/20 07:22 Midazolam HCl (Versed 1 Mg/Ml) Confirm Administered Dose 2 mg .ROUTE .STK-MED ONE Stop: 12/12/20 07:22 Morphine Sulfate (Morphine) 2 mg IVPUSH ONETIME ONE Stop: 12/10/20 12:28 Last Admin: 12/10/20 12:27 Dose: 2 mg Documented by: Morphine Sulfate (Morphine) 2 mg IVPUSH ONETIME ONE Stop: 12/10/20 14:16 Last Admin: 12/10/20 14:23 Dose: 2 mg Documented by: Ondansetron HCl (Zofran) Confirm Administered Dose 4 mg .ROUTE .STK-MED ONE Stop: 12/12/20 07:21 Phenylephrine HCl (Handy-Synephrine) Confirm Administered Dose 10 mg .ROUTE .STK- MED ONE Stop: 12/12/20 07:19 Propofol (Diprivan 20 Ml) Confirm Administered Dose 200 mg .ROUTE .STK-MED ONE Stop: 12/12/20 10:53 - Exam Wound/Incisions: Dressing Dry and Intact (surgical dressing CDI without any shadowing), No Drainage. No: Erythema Quality Assessment: DVT Prophylaxis (ASA 325mg daily) General: Alert, Oriented, Cooperative, No Acute Distress Extremities: No Pedal Edema, Normal Capillary Refill, Other (incision well approximated right hip. No active drainage. No erythema) Neurological: Normal Speech Psy/Mental Status: Alert, Normal Mood Physical Findings Comment:: Transferred OOB into chair for breakfast with minimal assist of nursing staff. Khushi used FWW, WBAT RLE. Independently moved RLE from when lying in bed to get herself seated at edge of bed prior to standing. Sepsis Event Note - Evaluation Sepsis Screening Result: No Definite Risk - Focused Exam Vital Signs: Vital Signs Temp Pulse Resp BP Pulse Ox 12/15/20 04:21 37.0 C 81 16 107/52 L 95 12/15/20 00:29 37.0 C 79 16 101/56 L 94 L - Problem List Review Problem List Initiated/Reviewed/Updated: Yes - My Orders Last 24 Hours: Active Orders 24 hr Category Date Time Status Incentive Spirometry [RT Incentive Spirometry] [RC] Care 12/14/20 11:01 Active Q1HWA Docusate Sodium [Colace] Med 12/15/20 09:00 Active 100 mg PO DAILY Medication Orders Acetaminophen (Tylenol) 650 mg PO Q4H PRN PRN Reason: Pain (Mild 1-3)/fever Albuterol (Proventil Neb Soln) 2.5 mg NEB Q2H PRN PRN Reason: Shortness Of Breath/wheezing Aspirin (Ecotrin) 325 mg PO DAILY [facility] Last Admin: 12/15/20 08:07 Dose: 325 mg Documented by: Admin: 12/14/20 08:38 Dose: 325 mg Documented by: Admin: 12/13/20 08:05 Dose: 325 mg Documented by: MINDY Bisacodyl (Dulcolax) 10 mg RECTAL DAILY PRN PRN Reason: if no BM after 2 days Docusate Sodium (Colace) 100 mg PO DAILY [facility] Last Admin: 12/15/20 08:08 Dose: Not Given Documented by: ANGELINA Morphine Sulfate (Morphine) 2 mg IVPUSH Q3H PRN PRN Reason: Pain (severe 7-10) Last Admin: 12/14/20 05:50 Dose: 2 mg Documented by: Admin: 12/13/20 22:02 Dose: 2 mg Documented by: Admin: 12/13/20 11:18 Dose: 2 mg Documented by: Admin: 12/13/20 04:25 Dose: 2 mg Documented by: Admin: 12/13/20 00:24 Dose: 2 mg Documented by: Admin: 12/12/20 20:23 Dose: 2 mg Documented by: Admin: 12/12/20 08:25 Dose: 2 mg Documented by: Admin: 12/11/20 22:41 Dose: 2 mg Documented by: Admin: 12/11/20 19:32 Dose: 2 mg Documented by: Admin: 12/11/20 15:24 Dose: 2 mg Documented by: Admin: 12/11/20 08:25 Dose: 2 mg Documented by: Admin: 12/10/20 21:46 Dose: 2 mg Documented by: Admin: 12/10/20 16:52 Dose: 2 mg Documented by: MINDY Ondansetron HCl (Zofran) 4 mg IVPUSH Q4H PRN PRN Reason: Nausea Sodium Chloride (Saline Flush) 2.5 ml FLUSH ASDIRECTED PRN PRN Reason: Keep Vein Open Tramadol HCl (Ultram) 50 mg PO Q4H PRN PRN Reason: Pain Last Admin: 12/15/20 08:01 Dose: 50 mg Documented by: Admin: 12/15/20 03:48 Dose: 50 mg Documented by: Admin: 12/14/20 20:04 Dose: 50 mg Documented by: Admin: 12/14/20 10:33 Dose: 50 mg Documented by: ANGELINA - Assessment Assessment (Free Text/Narrative):: 1) s/p ORIF Right intertrochanteric hip fracture 2) post-surgical anemia, stable. - Plan Plan (Free Text/Narrative):: Khushi is doing well this morning, with less anxious mood than yesterday, seeing the improvement in her transfer and ambulation ability, readying her for discharge home. Afebrile. Tolerating Tramadol without N/V, and reports it is doing well to control her pain. Surgical dressing was removed. This had very minimal dried drainage on it from day applied. Surgical incision well approximated with no active drainage, no surrounding erythema. Bruising lateral side of incision, beginning to turn yellow from deep purple. Tender to palpation. Large AquaCell was applied. Khushi was instructed that a second AquaCell will be sent home with her, to change in 7 days. Using Ice per [facility], which minimizes swelling and decreases pain. DVT prophylaxis : ASA 325mg daily. She has a walker at home. Orthopedics signing off. Hospitalist staff notified.
[2020-12-16 06:14] LABS: BLOOD UREA NITROGEN,BUN 19 mg/dL (7.0-18.0); CARBON DIOXIDE,CO2 29.7 mmol/L (21.0-32.0); CHLORIDE,CL 102 mmol/L (98-107); GLUCOSE RANDOM 110 mg/dL (74-106); POTASSIUM,K 4.4 mmol/L (3.5-5.1); SODIUM,NA 138 mmol/L (136-145)
--- NOTE | 2020-12-16 08:06 | PCM.PN ---
- General Info Date of Service: 12/16/20 Admission Dx/Problem (Free Text): Right intertrochanteric hip fracture Subjective Update: Reports she is feeling okay today. Reports she is having a little bit more pain to the hip after some physical therapy sessions yesterday. Feels frustrated with this but we did memorial counselor her on the need for physical therapy and that pain may be because from exercising her hip and muscles surrounding it. She again is flustered about what happened with anesthesia she was counseled on this again. We discussed about staying calm and getting PT today and setting up everything for discharge tomorrow. She appears to have doubts about being able to go home and how her family will help her. At the same time I expressed she still has the option to go to half-way rehab but she adamantly continues to refuse this. She denies any chest pain shortness of breath or abdominal pain. She is eating and drinking well she is tolerating diet well. She is tolerating tramadol and Tylenol for pain that is well controlled Functional Status: Reports: Pain Controlled, Tolerating Diet, Ambulating, Urinating - Review of Systems General: Reports: Fatigue HEENT: Reports: Other (Reports sore to lip, reports this is due to having dry lips after surgery.). Denies: Sore Throat, Visual Changes Pulmonary: Reports: No Symptoms. Denies: Shortness of Breath, Cough, Sputum Cardiovascular: Reports: No Symptoms. Denies: Chest Pain Gastrointestinal: Reports: No Symptoms. Denies: Abdominal Pain, Nausea, Vo miting Genitourinary: Reports: No Symptoms. Denies: Dysuria, Frequency Musculoskeletal: Reports: No Symptoms Skin: Reports: No Symptoms Neurological: Reports: No Symptoms Psychiatric: Reports: Anxiety - Patient Data Vitals - Most Recent: Last Vital Signs Temp 97.7 F 12/16/20 04:00 Pulse 78 12/16/20 04:00 Resp 15 12/16/20 04:00 BP 121/68 12/16/20 04:00 Pulse Ox 95 12/16/20 04:00 Weight - Most Recent: 53.5 kg I&O - Last 24 Hours: Intake & Output 12/15/20 12/16/20 12/16/20 22:59 06:59 14:59 Intake Total 520 480 Output Total 680 600 Balance -160 -120 Lab Results Last 24 Hours: Laboratory Results - last 24 hr 12/16/20 12/16/20 Range/Units 05:02 05:02 WBC 5.72 (4.0-11.0) K/uL RBC 3.39 L (4.30-5.90) M/uL Hgb 10.1 L (12.0-16.0) g/dL Hct 31.4 L (36.0-46.0) % MCV 92.6 (80.0-98.0) fL MCH 29.8 (27.0-32.0) pg MCHC 32.2 (31.0-37.0) g/dL RDW Std Deviation 41.8 (28.0-62.0) fl RDW Coeff of Hammad 12 (11.0-15.0) % Plt Count 258 (150-400) K/uL MPV 8.60 (7.40-12.00) fL Neut % (Auto) 59.3 (48.0-80.0) % Lymph % (Auto) 22.4 (16.0-40.0) % [place] % (Auto) 12.8 (0.0-15.0) % Eos % (Auto) 5.2 (0.0-7.0) % Baso % (Auto) 0.3 (0.0-1.5) % Neut # (Auto) 3.4 (1.4-5.7) K/uL Lymph # (Auto) 1.3 (0.6-2.4) K/uL [place] # (Auto) 0.7 (0.0-0.8) K/uL Eos # (Auto) 0.3 (0.0-0.7) K/uL Baso # (Auto) 0.0 (0.0-0.1) K/uL Nucleated RBC % 0.0 /100WBC Nucleated RBCs # 0 K/uL Sodium 138 (136-145) mmol/L Potassium 4.4 (3.5-5.1) mmol/L Chloride 102 (98-107) mmol/L Carbon Dioxide 29.7 (21.0-32.0) mmol/L BUN 19 H (7.0-18.0) mg/dL Creatinine 0.6 (0.6-1.0) mg/dL Est Cr Clr Drug Dosing 62.11 mL/min Estimated GFR (MDRD) > 60.0 ml/min Glucose 110 H (74-106) mg/dL Calcium 8.7 (8.5-10.1) mg/dL Magnesium 2.1 (1.8-2.4) mg/dL Med Orders - Current: Current Medications Acetaminophen (Tylenol) 650 mg PO Q4H PRN PRN Reason: Pain (Mild 1-3)/fever Albuterol (Proventil Neb Soln) 2.5 mg NEB Q2H PRN PRN Reason: Shortness Of Breath/wheezing Aspirin (Ecotrin) 325 mg PO DAILY [facility] Last Admin: 12/15/20 08:07 Dose: 325 mg Documented by: Bisacodyl (Dulcolax) 10 mg RECTAL DAILY PRN PRN Reason: if no BM after 2 days Docusate Sodium (Colace) 100 mg PO DAILY [facility] Last Admin: 12/15/20 08:08 Dose: Not Given Documented by: Ondansetron HCl (Zofran) 4 mg IVPUSH Q4H PRN PRN Reason: Nausea Sodium Chloride (Saline Flush) 2.5 ml FLUSH ASDIRECTED PRN PRN Reason: Keep Vein Open Tramadol HCl (Ultram) 50 mg PO Q4H PRN PRN Reason: Pain Last Admin: 12/15/20 23:58 Dose: 50 mg Documented by: Discontinued Medications Hydrocodone Bitart/Acetaminophen ([place] 325-5 Mg) 1 tab PO Q4H PRN PRN Reason: Pain (moderate 4-6) Last Admin: 12/11/20 00:13 Dose: 1 tab Documented by: Bupivacaine HCl (Sensorcaine-Mpf 0.5%) Confirm Administered Dose 10 ml .ROUTE .STK-MED ONE Stop: 12/12/20 02:05 Bupivacaine HCl (Sensorcaine-Mpf 0.5%) Confirm Administered Dose 10 ml .ROUTE .STK-MED ONE Stop: 12/12/20 08:31 Bupivacaine HCl (Sensorcaine-Mpf 0.5%) Confirm Administered Dose 10 ml .ROUTE .STK-MED ONE Stop: 12/12/20 10:15 Bupivacaine HCl (Marcaine 0.5%) Confirm Administered Dose 30 ml .ROUTE .STK-MED ONE Stop: 12/12/20 11:32 Cefazolin Sodium (Ancef) Confirm Administered Dose 1 gm .ROUTE .STK-MED ONE Stop: 12/12/20 08:30 Chloroprocaine HCl (Clorotekal) Confirm Administered Dose 5 ml .ROUTE .STK-MED ONE Stop: 12/13/20 09:19 Docusate Sodium (Colace) 100 mg PO BID [facility] Last Admin: 12/12/20 20:35 Dose: Not Given Documented by: Docusate Sodium (Colace 50 Mg/5 Ml Liquid) 100 mg PO BID [facility] Last Admin: 12/14/20 08:38 Dose: 100 mg Documented by: Enoxaparin Sodium (Lovenox) 40 mg SUBCUT Q24H [facility] Stop: 12/11/20 17:31 Last Admin: 12/11/20 16:41 Dose: 40 mg Documented by: Fentanyl (Sublimaze) Confirm Administered Dose 100 mcg .ROUTE .STK-MED ONE Stop: 12/12/20 07:24 Lactated Ringer's (Ringers, Lactated) 1,000 mls @ 75 mls/hr IV ASDIRECTED [facility] Last Admin: 12/10/20 14:22 Dose: 75 mls/hr Documented by: Ceftriaxone Sodium/Dextrose 1 (gm/ Premix) 50 mls @ 100 mls/hr IV Q24H [facility] Last Admin: 12/12/20 17:07 Dose: 100 mls/hr Documented by: Lactated Ringer's (Ringers, Lactated) 1,000 mls @ 50 mls/hr IV Q20H [facility] Last Admin: 12/13/20 10:15 Dose: Not Given Documented by: Sodium Chloride (Normal Saline) Confirm Administered Dose 20 mls @ as directed .ROUTE .STK-MED ONE Stop: 12/12/20 08:30 Ketamine HCl (Ketalar) Confirm Administered Dose 500 mg .ROUTE .STK-MED ONE Stop: 12/12/20 07:22 Midazolam HCl (Versed 1 Mg/Ml) Confirm Administered Dose 2 mg .ROUTE .STK-MED ONE Stop: 12/12/20 07:22 Morphine Sulfate (Morphine) 2 mg IVPUSH ONETIME ONE Stop: 12/10/20 12:28 Last Admin: 12/10/20 12:27 Dose: 2 mg Documented by: Morphine Sulfate (Morphine) 2 mg IVPUSH ONETIME ONE Stop: 12/10/20 14:16 Last Admin: 12/10/20 14:23 Dose: 2 mg Documented by: Morphine Sulfate (Morphine) 2 mg IVPUSH Q3H PRN PRN Reason: Pain (severe 7-10) Last Admin: 12/14/20 05:50 Dose: 2 mg Documented by: Ondansetron HCl (Zofran) Confirm Administered Dose 4 mg .ROUTE .STK-MED ONE Stop: 12/12/20 07:21 Phenylephrine HCl (Handy-Synephrine) Confirm Administered Dose 10 mg .ROUTE .STK- MED ONE Stop: 12/12/20 07:19 Propofol (Diprivan 20 Ml) Confirm Administered Dose 200 mg .ROUTE .STK-MED ONE Stop: 12/12/20 10:53 - Exam General: Alert, Oriented, Cooperative, No Acute Distress HEENT: Mucous Membr. Moist/[place], Other (Slight swelling noted to upper oral labia.) Neck: Supple Lungs: Clear to Auscultation, Normal Respiratory Effort Cardiovascular: Regular Rate, Regular Rhythm GI/Abdominal Exam: Normal Bowel Sounds, Soft, Non-Tender Back Exam: Normal Inspection, Full Range of Motion Extremities: Normal Inspection, Normal Range of Motion, Non-Tender Skin: Ecchymosis (Right medial thigh) Wound/Incisions: Dressing Dry and Intact, No Drainage Neurological: No New Focal Deficit Psy/Mental Status: Alert, Anxious Sepsis Event Note - Evaluation Sepsis Screening Result: No Definite Risk - Focused Exam Vital Signs: Vital Signs Temp Pulse Resp BP Pulse Ox 12/16/20 04:00 97.7 F 78 15 121/68 95 12/16/20 00:00 98.2 F 87 16 116/64 95 - Problem List & Annotations (1) Intertrochanteric fracture of right hip SNOMED Code(s): 039747766, 59212256908738561 Code(s): S72.141A - DISPLACED INTERTROCHANTERIC FRACTURE OF RIGHT FEMUR, INIT Status: Acute Current Visit: Yes Qualifiers: Encounter type: initial encounter Fracture type: closed Fracture alignment: nondisplaced Qualified Code(s): S72.144A - Nondisplaced intertrochanteric fracture of right femur, initial encounter for closed fracture (2) Fall SNOMED Code(s): 4664121, 323227567 Code(s): W19.XXXA - UNSPECIFIED FALL, INITIAL ENCOUNTER Status: Acute Current Visit: Yes (3) UTI (urinary tract infection) SNOMED Code(s): 93202297 Code(s): N39.0 - URINARY TRACT INFECTION, SITE NOT SPECIFIED Status: Acute Current Visit: No Qualifiers: Urinary tract infection type: site unspecified Hematuria presence: without hematuria Qualified Code(s): N39.0 - Urinary tract infection, site not specified (4) Asthma SNOMED Code(s): 031610405 Code(s): J45.909 - UNSPECIFIED ASTHMA, UNCOMPLICATED Status: Chronic Current Visit: Yes Qualifiers: Asthma severity: mild Asthma persistence: intermittent Asthma complication type: uncomplicated Qualified Code(s): J45.20 - Mild intermittent asthma, uncomplicated - Problem List Review Problem List Initiated/Reviewed/Updated: Yes - My Orders Last 24 Hours: My Active Orders 12/15/20 08:34 Consult to Home Health [CONS] Routine 12/15/20 09:00 Docusate Sodium [Colace] 100 mg PO DAILY 12/17/20 05:11 BASIC METABOLIC PANEL,BMP [CHEM] AM CBC WITH AUTO DIFF [HEME] AM MAGNESIUM [CHEM] AM 12/18/20 05:11 BASIC METABOLIC PANEL,BMP [CHEM] AM CBC WITH AUTO DIFF [HEME] AM MAGNESIUM [CHEM] AM 12/19/20 05:11 BASIC METABOLIC PANEL,BMP [CHEM] AM CBC WITH AUTO DIFF [HEME] AM MAGNESIUM [CHEM] AM 12/20/20 05:11 BASIC METABOLIC PANEL,BMP [CHEM] AM CBC WITH AUTO DIFF [HEME] AM MAGNESIUM [CHEM] AM - Plan Plan:: This 80-year-old female admitted with right intertrochanteric hip fracture after mechanical fall 1. Right intertrochanteric hip fracture -POD #4 -Tylenol and tramadol as needed pain -PT consulted for ambulation and strengthening -Continue bowel regimen, Colace once daily -Continue aspirin per orthopedics, will need to continue for total of 3 months 2. Asthma -Albuterol inhaler as needed VTE prophylaxis: ASA daily per orthopedics Disposition: Discharge on Sunday with home health PT OT. Will be going home to stay with her daughter in the short-term to help with physical therapy and any needs at home.
[2020-12-16] MEDS: Docusate Sodium 100 MG Cap PO SCH (08:43)
[2020-12-16] MEDS: Aspirin 325 MG Tab.EC PO SCH (08:43)
[2020-12-16] MEDS: traMADol 50 MG Tab PO PRN ×2 (10:02→23:26)
[2020-12-17] MEDS: traMADol 50 MG Tab PO PRN (06:55)
[2020-12-17] MEDS: Docusate Sodium 100 MG Cap PO SCH (08:14)
[2020-12-17] MEDS: Aspirin 325 MG Tab.EC PO SCH (08:14)
--- NOTE | 2020-12-17 08:18 | PCM.DCSUM1 ---
<Keiko Pan M - Last Filed: 12/17/20 21:53> Discharge Summary - Hospital Course Brief History: his 80-year-old female with past medical history of asthma presented to the ER via EMS after a fall this morning. She reports she woke up and went to turn off a lamp she has on overnight she turned the lamp off and turned reporting that her foot got caught on a rug and she tried to catch herself as she was falling but landed directly on her right hip. She had instant significant and severe pain to her right hip. She denies hitting her head. She denies any loss of consciousness. She denies any chest pain shortness of breath palpitations or abdominal pain. She denies any recent diarrhea or constipation and no urinary symptoms. She denies any focal neurological deficits. She reports that she has been feeling well up until her fall. Denies any recent fevers chills or sinus congestion. She reports that she stays home and has family members within town that visit her at random times. She denies any smoking history no alcohol or recreational drug use. She does have history of surgical procedures including 1 to her neck. 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 She had followed up with ENT as an outpatient a few years ago. In the ER lab work revealed mild leukocytosis at 11,000. BMP within normal limits UA after catheter placement revealed few bacteria with positive leukocyte esterase and 2-4 pyuria. Chest x-ray negative. Hip x-ray and CT revealed minimally displaced right intertrochanteric hip fracture. EKG sinus rhythm no ST or T wave changes. In the ER Dr. Corbin, orthopedics was co nsulted. Anesthesia was also consulted and has accepted patient for surgical fixation. PCP Dr. Romo Diagnosis: Stroke: No - Discharge Data Discharge Date: 12/17/20 Discharge Disposition: Home, W Home Health Agency 06 Condition: Good - Referral to Home Health Date of Face to Face Encounter: 12/15/20 Reason for Homebound Status: Khushi is homebound due to recent mechanical fall resulting in right hip fracture. She is in need of caregiver as well as assistive device to leave the home due to unsteady gait and pain with ambulation. Primary Care Physician: Tita Romo, DO Skilled Need: Khushi will be discharged home with home health. She is in need of long term care to evaluate pain control as well as provide ADLs or assist with ADLs such as bathing. She will also need monitoring of her hip incision. She is in need of PT to evaluate and treat due to recent right hip fracture and surgical fixation. She is weightbearing as tolerated up ambulating with walker. But needs significant help with strengthening. OT to evaluate and treat for ADLs as well as home safety. - Discharge Diagnosis/Problem(s) (1) Intertrochanteric fracture of right hip SNOMED Code(s): 205552198, [id number] ICD Code: S72.141A - DISPLACED INTERTROCHANTERIC FRACTURE OF RIGHT FEMUR, INIT Status: Acute Qualifiers: Encounter type: initial encounter Fracture type: closed Fracture alignment: nondisplaced Qualified Code(s): S72.144A - Nondisplaced intertrochanteric fracture of right femur, initial encounter for closed fracture (2) Fall SNOMED Code(s): 0981485, 282875584 ICD Code: W19.XXXA - UNSPECIFIED FALL, INITIAL ENCOUNTER Status: Acute (3) UTI (urinary tract infection) SNOMED Code(s): 22630637 ICD Code: N39.0 - URINARY TRACT INFECTION, SITE NOT SPECIFIED Status: Acute Qualifiers: Urinary tract infection type: site unspecified Hematuria presence: without hematuria Qualified Code(s): N39.0 - Urinary tract infection, site not specified (4) Asthma SNOMED Code(s): 988584952 ICD Code: J45.909 - UNSPECIFIED ASTHMA, UNCOMPLICATED Status: Chronic Qualifiers: Asthma severity: mild Asthma persistence: intermittent Asthma complication type: uncomplicated Qualified Code(s): J45.20 - Mild intermittent asthma, uncomplicated - Patient Summary/Data Operative Procedure(s) Performed: Open reduction and internal fixation of right intertrochanteric hip fracture Consults: Consultations 12/10/20 16:30 Consult to Physician [CONS] Routine 12/12/20 12:14 Consult to Physical Therapy [PT Evaluation and Treatment] [CONS] Routine 12/15/20 08:34 Consult to Home Health [CONS] Routine Hospital Course: Admission diagnoses: R intertrochanteric fracture UTI Mechanical fall Discharge Diagnoses: R intertrochanteric hip fracture- s/p ORIF Mechanical fall herpes labialis Other pmh: Asthma Khushi was admitted after fall which resulted in R sided intertrochanteric hip fracture. Dr Corbin, Orthopedics was consulted for surgical intervention. Upon admission, UTI was noted and she was started on Rocephin. Anesthesia was consulted for approval for surgery due to history of laryngeal web. She was taken to surgery with Dr Corbin on SundayDecember 12. Her postoperative course was uneventful. Rocephin was discontinued as UC revealed mixed juan a. Oral cold sores developed post op, she was treated with topical acyclovir which quickly improved sores. PT was consulted for ambulation. She steadily improved in strength and pain control. Pain control was obtained with Tylenol and Tramadol. She was kept on ASA 325 mg daily for VTE prophylaxis per Orthopedics, this will be continued for 3 months post op. She was offered admission to SNF for short term rehabilitation, but her and family adamantly declined this. Home Health was consulted for nursing care, PT and OT at home. She will be staying with her daughter for now until she is safe with returning home. She will be discharged home today with ASA, she was counseled on the importance of this for 3 months and she then could return to 81 mg daily. Tramadol and Tylenol sent home for pain control. All questions and concerns addressed with daughter via phone as well as patient at bedside. She will have follow up with PCP and orthopedics as scheduled. She is to return to ED or clinic if concerns should arise sooner. - Patient Instructions Diet: Regular Diet as Tolerated Activity: Apply Ice (Use PolarCare Ice pad often, as this decreases swelling whi ch decreases pain. ), Full Weight Bearing (Weight bearing as tolerates, with use of walker when ambulating) Driving: Do Not Drive Showering/Bathing: May Shower (You do not need to cover AquaCell bandage when showering), No Tub Bathing/Swimming Notify Provider of: Fever, Increased Pain, Swelling and Redness, Drainage, Nausea and/or Vomiting Other/Special Instructions: Take ASPIRIN 325mg once daily. This is to prevent blood clots. - Discharge Plan *PRESCRIPTION DRUG MONITORING PROGRAM REVIEWED*: Not Applicable *COPY OF PRESCRIPTION DRUG MONITORING REPORT IN PATIENT YONY: Not Applicable Prescriptions/Med Rec: Aspirin [Ecotrin EC] 325 mg PO DAILY 90 Days #90 tab.ec Acetaminophen [Tylenol] 650 mg PO Q4H PRN #30 tablet PRN Reason: Pain (Mild 1-3)/fever traMADol [Ultram] 50 mg PO Q4H PRN #30 tablet PRN Reason: Pain Home Medications: Home Meds Albuterol Sulfate [Albuterol Sulfate Hfa] 1 inh INH 6XDAY PRN 12/10/20 [History] Aspirin 81 mg PO BEDTIME #0 12/15/20 [Rx] Acetaminophen [Tylenol] 650 mg PO Q4H PRN #30 tablet 12/17/20 [Rx] Acyclovir [Zovirax 5% Oint] 1 applic TOP 5XDAY #1 tube 12/17/20 [Rx] Aspirin [Ecotrin EC] 325 mg PO DAILY 90 Days #90 tab.ec 12/17/20 [Rx] Docusate Sodium [Colace] 100 mg PO DAILY cap 12/17/20 [Rx] traMADol [Ultram] 50 mg PO Q4H PRN #30 tablet 12/17/20 [Rx] Oxygen Therapy Mode: Room Air Patient Handouts: Femoral Shaft Fracture Treated With ORIF, Tramadol tablets, Aspirin, ASA oral tablets, How to Use Cold Therapy, Femoral Shaft Fracture Treated With ORIF, Care After Referrals: Tita Romo DO [Primary Care Provider] - 12/27/20 2:00 pm Kylie Paniagua NP [Nurse Practitioner] - 12/30/20 1:00 pm - Discharge Summary/Plan Comment DC Time >30 min.: Yes (discussion with daughter and setting up HH) - Patient Data Vitals - Most Recent: Last Vital Signs Temp 96.0 F L 12/17/20 07:17 Pulse 91 12/17/20 07:17 Resp 20 12/17/20 07:17 BP 109/66 12/17/20 07:17 Pulse Ox 93 L 12/17/20 07:17 Weight - Most Recent: 53.5 kg I&O - Last 24 hours: Intake & Output 12/16/20 12/17/20 12/17/20 22:59 06:59 14:59 Intake Total 480 240 Output Total 500 Balance 480 -260 Med Orders - Current: Current Medications Acetaminophen (Tylenol) 650 mg PO Q4H PRN PRN Reason: Pain (Mild 1-3)/fever Acyclovir (Zovirax 5% Oint) 0 gm TOP 5XDAY LEILANI Last Admin: 12/17/20 06:57 Dose: 1 applic Documented by: Albuterol (Proventil Neb Soln) 2.5 mg NEB Q2H PRN PRN Reason: Shortness Of Breath/wheezing Aspirin (Ecotrin) 325 mg PO DAILY [facility] Last Admin: 12/17/20 08:14 Dose: 325 mg Documented by: Bisacodyl (Dulcolax) 10 mg RECTAL DAILY PRN PRN Reason: if no BM after 2 days Docusate Sodium (Colace) 100 mg PO DAILY [facility] Last Admin: 12/17/20 08:14 Dose: 100 mg Documented by: Ondansetron HCl (Zofran) 4 mg IVPUSH Q4H PRN PRN Reason: Nausea Sodium Chloride (Saline Flush) 2.5 ml FLUSH ASDIRECTED PRN PRN Reason: Keep Vein Open Tramadol HCl (Ultram) 50 mg PO Q4H PRN PRN Reason: Pain Last Admin: 12/17/20 06:55 Dose: 50 mg Documented by: Discontinued Medications Hydrocodone Bitart/Acetaminophen ([place] 325-5 Mg) 1 tab PO Q4H PRN PRN Reason: Pain (moderate 4-6) Last Admin: 12/11/20 00:13 Dose: 1 tab Documented by: Bupivacaine HCl (Sensorcaine-Mpf 0.5%) Confirm Administered Dose 10 ml .ROUTE .STK-MED ONE Stop: 12/12/20 02:05 Bupivacaine HCl (Sensorcaine-Mpf 0.5%) Confirm Administered Dose 10 ml .ROUTE .STK-MED ONE Stop: 12/12/20 08:31 Bupivacaine HCl (Sensorcaine-Mpf 0.5%) Confirm Administered Dose 10 ml .ROUTE .STK-MED ONE Stop: 12/12/20 10:15 Bupivacaine HCl (Marcaine 0.5%) Confirm Administered Dose 30 ml .ROUTE .STK-MED ONE Stop: 12/12/20 11:32 Cefazolin Sodium (Ancef) Confirm Administered Dose 1 gm .ROUTE .STK-MED ONE Stop: 12/12/20 08:30 Chloroprocaine HCl (Clorotekal) Confirm Administered Dose 5 ml .ROUTE .STK-MED ONE Stop: 12/13/20 09:19 Docusate Sodium (Colace) 100 mg PO BID [facility] Last Admin: 12/12/20 20:35 Dose: Not Given Documented by: Docusate Sodium (Colace 50 Mg/5 Ml Liquid) 100 mg PO BID [facility] Last Admin: 12/14/20 08:38 Dose: 100 mg Documented by: Enoxaparin Sodium (Lovenox) 40 mg SUBCUT Q24H [facility] Stop: 12/11/20 17:31 Last Admin: 12/11/20 16:41 Dose: 40 mg Documented by: Fentanyl (Sublimaze) Confirm Administered Dose 100 mcg .ROUTE .STK-MED ONE Stop: 12/12/20 07:24 Lactated Ringer's (Ringers, Lactated) 1,000 mls @ 75 mls/hr IV ASDIRECTED [facility] Last Admin: 12/10/20 14:22 Dose: 75 mls/hr Documented by: Ceftriaxone Sodium/Dextrose 1 (gm/ Premix) 50 mls @ 100 mls/hr IV Q24H [facility] Last Admin: 12/12/20 17:07 Dose: 100 mls/hr Documented by: Lactated Ringer's (Ringers, Lactated) 1,000 mls @ 50 mls/hr IV Q20H [facility] Last Admin: 12/13/20 10:15 Dose: Not Given Documented by: Sodium Chloride (Normal Saline) Confirm Administered Dose 20 mls @ as directed .ROUTE .STK-MED ONE Stop: 12/12/20 08:30 Ketamine HCl (Ketalar) Confirm Administered Dose 500 mg .ROUTE .STK-MED ONE Stop: 12/12/20 07:22 Midazolam HCl (Versed 1 Mg/Ml) Confirm Administered Dose 2 mg .ROUTE .STK-MED ONE Stop: 12/12/20 07:22 Morphine Sulfate (Morphine) 2 mg IVPUSH ONETIME ONE Stop: 12/10/20 12:28 Last Admin: 12/10/20 12:27 Dose: 2 mg Documented by: Morphine Sulfate (Morphine) 2 mg IVPUSH ONETIME ONE Stop: 12/10/20 14:16 Last Admin: 12/10/20 14:23 Dose: 2 mg Documented by: Morphine Sulfate (Morphine) 2 mg IVPUSH Q3H PRN PRN Reason: Pain (severe 7-10) Last Admin: 12/14/20 05:50 Dose: 2 mg Documented by: Ondansetron HCl (Zofran) Confirm Administered Dose 4 mg .ROUTE .STK-MED ONE Stop: 12/12/20 07:21 Phenylephrine HCl (Handy-Synephrine) Confirm Administered Dose 10 mg .ROUTE .STK- MED ONE Stop: 12/12/20 07:19 Propofol (Diprivan 20 Ml) Confirm Administered Dose 200 mg .ROUTE .STK-MED ONE Stop: 12/12/20 10:53 - Exam General: Reports: Alert, Oriented, Cooperative, No Acute Distress Neck: Reports: Supple Lungs: Reports: Clear to Auscultation, Normal Respiratory Effort Cardiovascular: Reports: Regular Rate, Regular Rhythm GI/Abdominal Exam: Normal Bowel Sounds, Soft, Non-Tender, No Distention Back Exam: Reports: Normal Inspection, Full Range of Motion Extremities: Normal Inspection, Normal Range of Motion Skin: Reports: Ecchymosis (noted to R medial thigh) Wound/Incisions: Reports: Healing Well, Dressing Dry and Intact (R hip) Neurological: Reports: No New Focal Deficit Psy/Mental Status: Reports: Alert, Normal Affect, Normal Mood <Anuel,Hooria - Last Filed: 12/18/20 16:44> Discharge Summary - Referral to Home Health Primary Care Physician: Tita Romo DO - Patient Summary/Data Consults: Consultations 12/10/20 16:30 Consult to Physician [CONS] Routine 12/12/20 12:14 Consult to Physical Therapy [PT Evaluation and Treatment] [CONS] Routine 12/15/20 08:34 Consult to Home Health [CONS] Routine - Patient Data Vitals - Most Recent: Last Vital Signs Temp 35.6 C L 12/17/20 15:45 Pulse 88 12/17/20 15:45 Resp 20 12/17/20 15:45 BP 122/67 12/17/20 15:45 Pulse Ox 95 12/17/20 15:45 Med Orders - Current: Current Medications Discontinued Medications Acetaminophen (Tylenol) 650 mg PO Q4H PRN PRN Reason: Pain (Mild 1-3)/fever Hydrocodone Bitart/Acetaminophen ([place] 325-5 Mg) 1 tab PO Q4H PRN PRN Reason: Pain (moderate 4-6) Last Admin: 12/11/20 00:13 Dose: 1 tab Documented by: Acyclovir (Zovirax 5% Oint) 0 gm TOP 5XDAY LEILANI Last Admin: 12/17/20 15:48 Dose: 1 applic Documented by: Albuterol (Proventil Neb Soln) 2.5 mg NEB Q2H PRN PRN Reason: Shortness Of Breath/wheezing Aspirin (Ecotrin) 325 mg PO DAILY [facility] Last Admin: 12/17/20 08:14 Dose: 325 mg Documented by: Bisacodyl (Dulcolax) 10 mg RECTAL DAILY PRN PRN Reason: if no BM after 2 days Bupivacaine HCl (Sensorcaine-Mpf 0.5%) Confirm Administered Dose 10 ml .ROUTE .STK-MED ONE Stop: 12/12/20 02:05 Bupivacaine HCl (Sensorcaine-Mpf 0.5%) Confirm Administered Dose 10 ml .ROUTE .STK-MED ONE Stop: 12/12/20 08:31 Bupivacaine HCl (Sensorcaine-Mpf 0.5%) Confirm Administered Dose 10 ml .ROUTE .STK-MED ONE Stop: 12/12/20 10:15 Bupivacaine HCl (Marcaine 0.5%) Confirm Administered Dose 30 ml .ROUTE .STK-MED ONE Stop: 12/12/20 11:32 Cefazolin Sodium (Ancef) Confirm Administered Dose 1 gm .ROUTE .STK-MED ONE Stop: 12/12/20 08:30 Chloroprocaine HCl (Clorotekal) Confirm Administered Dose 5 ml .ROUTE .STK-MED ONE Stop: 12/13/20 09:19 Docusate Sodium (Colace) 100 mg PO BID [facility] Last Admin: 12/12/20 20:35 Dose: Not Given Documented by: Docusate Sodium (Colace 50 Mg/5 Ml Liquid) 100 mg PO BID [facility] Last Admin: 12/14/20 08:38 Dose: 100 mg Documented by: Docusate Sodium (Colace) 100 mg PO DAILY [facility] Last Admin: 12/17/20 08:14 Dose: 100 mg Documented by: Enoxaparin Sodium (Lovenox) 40 mg SUBCUT Q24H [facility] Stop: 12/11/20 17:31 Last Admin: 12/11/20 16:41 Dose: 40 mg Documented by: Fentanyl (Sublimaze) Confirm Administered Dose 100 mcg .ROUTE .STK-MED ONE Stop: 12/12/20 07:24 Lactated Ringer's (Ringers, Lactated) 1,000 mls @ 75 mls/hr IV ASDIRECTED [facility] Last Admin: 12/10/20 14:22 Dose: 75 mls/hr Documented by: Ceftriaxone Sodium/Dextrose 1 (gm/ Premix) 50 mls @ 100 mls/hr IV Q24H [facility] Last Admin: 12/12/20 17:07 Dose: 100 mls/hr Documented by: Lactated Ringer's (Ringers, Lactated) 1,000 mls @ 50 mls/hr IV Q20H [facility] Last Admin: 12/13/20 10:15 Dose: Not Given Documented by: Sodium Chloride (Normal Saline) Confirm Administered Dose 20 mls @ as directed .ROUTE .STK-MED ONE Stop: 12/12/20 08:30 Ketamine HCl (Ketalar) Confirm Administered Dose 500 mg .ROUTE .STK-MED ONE Stop: 12/12/20 07:22 Midazolam HCl (Versed 1 Mg/Ml) Confirm Administered Dose 2 mg .ROUTE .STK-MED ONE Stop: 12/12/20 07:22 Morphine Sulfate (Morphine) 2 mg IVPUSH ONETIME ONE Stop: 12/10/20 12:28 Last Admin: 12/10/20 12:27 Dose: 2 mg Documented by: Morphine Sulfate (Morphine) 2 mg IVPUSH ONETIME ONE Stop: 12/10/20 14:16 Last Admin: 12/10/20 14:23 Dose: 2 mg Documented by: Morphine Sulfate (Morphine) 2 mg IVPUSH Q3H PRN PRN Reason: Pain (severe 7-10) Last Admin: 12/14/20 05:50 Dose: 2 mg Documented by: Ondansetron HCl (Zofran) 4 mg IVPUSH Q4H PRN PRN Reason: Nausea Ondansetron HCl (Zofran) Confirm Administered Dose 4 mg .ROUTE .STK-MED ONE Stop: 12/12/20 07:21 Phenylephrine HCl (Handy-Synephrine) Confirm Administered Dose 10 mg .ROUTE .STK- MED ONE Stop: 12/12/20 07:19 Propofol (Diprivan 20 Ml) Confirm Administered Dose 200 mg .ROUTE .STK-MED ONE Stop: 12/12/20 10:53 Sodium Chloride (Saline Flush) 2.5 ml FLUSH ASDIRECTED PRN PRN Reason: Keep Vein Open Tramadol HCl (Ultram) 50 mg PO Q4H PRN PRN Reason: Pain Last Admin: 12/17/20 06:55 Dose: 50 mg Documented by:
[2020-12-17 15:46] VITALS: BP 122/67; PULSE 88
--- NOTE | 2020-12-17 16:04 | CR ---
INDICATION: Pain COMPARISON: A chest radiograph dated December 10, 2020 TECHNIQUE: Examination consists of a single view the chest as well as 4 additional images the left ribcage. FINDINGS: TUBES AND LINES: None. HEART AND MEDIASTINUM: The heart size is normal. The mediastinal contour appears normal for patient age. LUNGS AND PLEURAL SPACES: The lungs appear normal.The pleural spaces are unremarkable. OSSEOUS STRUCTURES: The osseous structures are demineralized. There are degenerative changes of the spine and a scoliosis. Besides demineralization, I see no definite abnormality involving the left rib cage.. IMPRESSION: 1. No evidence of active pulmonary disease. 2. Demineralized osseous structures. Degenerative changes of the spine and scoliosis. No visible acute finding involving the left rib cage. Dictated by Elvin Vang MD @ Dec 17 2020 4:00PM Signed by Dr. Elvin Vang @ Dec 17 2020 4:03PM
== END 2020-12-17 16:40 | disposition home health service (06) | DRG 481 ==
LOC: MW.ED 11:06 → MW.MS 15:26
PROVIDERS: ADMIT Internal Medicine; ATTEND Internal Medicine
PROC: 0QS604Z Reposition Right Upper Femur with Internal Fixation Device, Open Approach (ICD-10-PCS; principal; 2020-12-10)
DX: S72.141A Displaced intertrochanteric fracture of right femur, initial encounter for closed fracture (principal); N39.0 Urinary tract infection, site not specified; W19.XXXA Unspecified fall, initial encounter; Y92.009 Unspecified place in unspecified non-institutional (private) residence as the place of occurrence of the external cause; J45.20 Mild intermittent asthma, uncomplicated; H54.7 Unspecified visual loss; K57.90 Diverticulosis of intestine, part unspecified, without perforation or abscess without bleeding; Z20.822 Contact with and (suspected) exposure to COVID-19
CPT/HCPCS: 01230; 36415; 51702; 70450; 70450-26; 71045; 71045-26; 71101-26-LT; 71101-LT; 73502-26-RT; 73502-RT; 73700-26-RT; 73700-RT; 80048; 80053; 81001; 83735; 85025; 85610; 87086; 93010; 96374; 96376; 97110-GP; 97116-GP; 97162-GP; 97530-GP; 99285; 99285-25; A9270-GY; C1713; J0690; J0696; J1650; J2250; J2270; J2370; J2400; J2405; J2704; J3010; J3490; J7120; U0002

== ENCOUNTER 2021-11-21 08:42 | Emergency (ER) | payer MEDICARE, OTHER ==
--- NOTE | 2021-11-21 09:05 | EDM.PDOC ---
ED HPI GENERAL MEDICAL PROBLEM - General Chief Complaint: Respiratory Problem Stated Complaint: SOB Time Seen by Provider: 11/21/21 08:47 Source of Information: Reports: Patient History Limitations: Reports: No Limitations - History of Present Illness INITIAL COMMENTS - FREE TEXT/NARRATIVE: Patient is a 81-year-old female who presents today mostly for throat pain. Says she has had a tickle in her does cause her to cough. Cough is nonproductive she does not feel short of breath or have chest pain. She is to use a nebulizer at home try to help out with the pain in her throat. Patient is also tachycardic but she just used her nebulizer before arriving. Again she denies any shortness of breath cough fever chills abdominal pain or nausea vomiting. She is able to speak clearly and swallow without issue. - Related Data Allergies Allergy/AdvReac Type Severity Reaction Status Date / Time No Known Allergies Allergy Verified 11/21/21 08:50 Home Meds: Home Meds Albuterol Sulfate [Albuterol Sulfate Hfa] 8.5 gm IH ASDIRECTED PRN 11/21/21 [History] Past Medical History HEENT History: Reports: Impaired Vision Cardiovascular History: Reports: None Respiratory History: Reports: Asthma Gastrointestinal History: Reports: Diverticulosis Genitourinary History: Reports: UTI, Recurrent ACCOUNT ADMINISTRATOR History: Reports: None Musculoskeletal History: Reports: None Neurological History: Reports: None Psychiatric History: Reports: None Endocrine/Metabolic History: Reports: None Insulin Pump Model and Community Liaison Officer: None Hematologic History: Reports: None Immunologic History: Reports: None Oncologic (Cancer) History: Reports: None Dermatologic History: Reports: None - Infectious Disease History Infectious Disease History: Reports: Chicken Pox, Measles, Mumps - Past Surgical History Head Surgeries/Procedures: Reports: None Female Surgical History: Reports: None Other Endocrine Surgeries/Procedures: removed half of thyroid from enlarged thyroid Social & Family History - Family History Family Medical History: No Pertinent Family History - Caffeine Use Caffeine Use: Reports: None - Recreational Drug Use Recreational Drug Use: No ED ROS GENERAL - Review of Systems Review Of Systems: See Below Constitutional: Reports: No Symptoms HEENT: Reports: Throat Pain Respiratory: Reports: No Symptoms Cardiovascular: Reports: No Symptoms Endocrine: Reports: No Symptoms GI/Abdominal: Reports: No Symptoms : Reports: No Symptoms Musculoskeletal: Reports: No Symptoms Skin: Reports: No Symptoms Neurological: Reports: No Symptoms Psychiatric: Reports: No Symptoms Hematologic/Lymphatic: Reports: No Symptoms Immunologic: Reports: No Symptoms ED EXAM, GENERAL - Physical Exam Exam: See Below Exam Limited By: No Limitations General Appearance: Alert, WD/WN, No Apparent Distress Eye Exam: Bilateral Eye: EOMI, PERRL Throat/Mouth: Normal Inspection Head: Atraumatic, Normocephalic Neck: Normal Inspection, Supple, Non-Tender Respiratory/Chest: No Respiratory Distress, Lungs Clear, Normal Breath Sounds Cardiovascular: Normal Peripheral Pulses, Regular Rate, Rhythm GI/Abdominal: Normal Bowel Sounds, Soft, Non-Tender Back Exam: Normal Inspection Extremities: Normal Inspection, Normal Range of Motion Neurological: Alert, Oriented, Normal Cognition, Normal Gait #1 Interpretation EKG Date: 11/21/21 Time: 09:00 Rhythm: Other (sinus tachy) Rate (Beats/Min): 102 ST-T: Depressed (II,III, V3, V4, V5) Course - Vital Signs Last Recorded V/S: Last Vital Signs Temp 96.8 F L 11/21/21 08:45 Pulse 112 H 11/21/21 08:45 Resp 18 11/21/21 08:45 BP 127/82 11/21/21 08:45 Pulse Ox 97 11/21/21 08:45 - Orders/Labs/Meds Labs: Laboratory Tests 11/21/21 11/21/21 11/21/21 Range/Units 09:00 09:24 09:24 WBC 7.06 (4.0-11.0) K/uL RBC 4.18 L (4.30-5.90) M/uL Hgb 12.5 (12.0-16.0) g/dL Hct 38.2 (36.0-46.0) % MCV 91.4 (80.0-98.0) fL MCH 29.9 (27.0-32.0) pg MCHC 32.7 (31.0-37.0) g/dL RDW Std Deviation 43.5 (28.0-62.0) fl RDW Coeff of Hammad 13 (11.0-15.0) % Plt Count 171 (150-400) K/uL MPV 8.50 (7.40-12.00) fL Neut % (Auto) 81.5 H (48.0-80.0) % Lymph % (Auto) 9.5 L (16.0-40.0) % [place] % (Auto) 8.4 (0.0-15.0) % Eos % (Auto) 0.3 (0.0-7.0) % Baso % (Auto) 0.3 (0.0-1.5) % Neut # (Auto) 5.8 H (1.4-5.7) K/uL Lymph # (Auto) 0.7 (0.6-2.4) K/uL [place] # (Auto) 0.6 (0.0-0.8) K/uL Eos # (Auto) 0.0 (0.0-0.7) K/uL Baso # (Auto) 0.0 (0.0-0.1) K/uL Nucleated RBC % 0.0 /100WBC Nucleated RBCs # 0 K/uL Sodium 141 (136-145) mmol/L Potassium 3.3 L (3.5-5.1) mmol/L Chloride 106 (98-107) mmol/L Carbon Dioxide 22.9 (21.0-32.0) mmol/L BUN 17 (7.0-18.0) mg/dL Creatinine 0.7 (0.6-1.0) mg/dL Est Cr Clr Drug Dosing TNP Estimated GFR (MDRD) > 60.0 ml/min Glucose 135 H (74-106) mg/dL Calcium 9.0 (8.5-10.1) mg/dL Total Bilirubin 0.4 (0.2-1.0) mg/dL AST 23 (15-37) IU/L ALT 21 (14-63) IU/L Alkaline Phosphatase 84 (46-116) U/L Troponin I < 0.050 (0.000-0.056) ng/mL Total Protein 7.2 (6.4-8.2) g/dL Albumin 3.6 (3.4-5.0) g/dL Globulin 3.6 (2.6-4.0) g/dL Albumin/Globulin Ratio 1.0 (0.9-1.6) Group A Strep (PCR) NOT DETECTED (NOT DETECT) 11/21/21 Range/Units 12:20 WBC (4.0-11.0) K/uL RBC (4.30-5.90) M/uL Hgb (12.0-16.0) g/dL Hct (36.0-46.0) % MCV (80.0-98.0) fL MCH (27.0-32.0) pg MCHC (31.0-37.0) g/dL RDW Std Deviation (28.0-62.0) fl RDW Coeff of Hammad (11.0-15.0) % Plt Count (150-400) K/uL MPV (7.40-12.00) fL Neut % (Auto) (48.0-80.0) % Lymph % (Auto) (16.0-40.0) % [place] % (Auto) (0.0-15.0) % Eos % (Auto) (0.0-7.0) % Baso % (Auto) (0.0-1.5) % Neut # (Auto) (1.4-5.7) K/uL Lymph # (Auto) (0.6-2.4) K/uL [place] # (Auto) (0.0-0.8) K/uL Eos # (Auto) (0.0-0.7) K/uL Baso # (Auto) (0.0-0.1) K/uL Nucleated RBC % /100WBC Nucleated RBCs # K/uL Sodium (136-145) mmol/L Potassium (3.5-5.1) mmol/L Chloride (98-107) mmol/L Carbon Dioxide (21.0-32.0) mmol/L BUN (7.0-18.0) mg/dL Creatinine (0.6-1.0) mg/dL Est Cr Clr Drug Dosing Estimated GFR (MDRD) ml/min Glucose (74-106) mg/dL Calcium (8.5-10.1) mg/dL Total Bilirubin (0.2-1.0) mg/dL AST (15-37) IU/L ALT (14-63) IU/L Alkaline Phosphatase (46-116) U/L Troponin I < 0.050 (0.000-0.056) ng/mL Total Protein (6.4-8.2) g/dL Albumin (3.4-5.0) g/dL Globulin (2.6-4.0) g/dL Albumin/Globulin Ratio (0.9-1.6) Group A Strep (PCR) (NOT DETECT) - Re-Assessments/Exams Free Text/Narrative Re-Assessment/Exam: 11/21/21 13:04 Patient tropes negative x2 patient again remains chest pain-free his symptoms are probably just related to his sinus the throat pain. Patient to be discharged home Departure - Departure Time of Disposition: 13:04 Disposition: Home, Self-Care 01 Condition: Good Clinical Impression: Throat pain in adult - Discharge Information *PRESCRIPTION DRUG MONITORING PROGRAM REVIEWED*: Not Applicable *COPY OF PRESCRIPTION DRUG MONITORING REPORT IN PATIENT YONY: Not Applicable Instructions: Upper Respiratory Infection, Adult, [id number] Referrals: Rajendra Escamilla MD [Primary Care Provider] - Forms: ED Department Discharge Additional Instructions: You are seen today for throat pain. We also did a cardiac work-up heart your heart rate was warm at a faster rate likely due to your albuterol inhaler you using. 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 If you have any other concerning signs symptom please return to the ED or follow with your primary care physician. The following information is given to patients seen in the emergency department who are being discharged to home. This information is to outline your options for follow-up care. We provide all patients seen in our emergency department with a follow-up referral. The need for follow-up, as well as the timing and circumstances, are variable depending upon the specifics of your emergency department visit. If you don't have a primary care physician on staff, we will provide you with a referral. We always advise you to contact your personal physician following an emergency department visit to inform them of the circumstance of the visit and for follow-up with them and/or the need for any referrals to a consulting specialist. The emergency department will also refer you to a specialist when appropriate. This referral assures that you have the opportunity for follow-up care with a specialist. All of these measure are taken in an effort to provide you with optimal care, which includes your follow-up. Under all circumstances we always encourage you to contact your private physician who remains a resource for coordinating your care. When calling for follow-up care, please make the office aware that this follow-up is from your recent emergency room visit. If for any reason you are refused follow-up, please contact the [facility] Emergency Department at and asked to speak to the emergency department charge nurse. Please follow up with your primary care physician. If you do not have a primary care physician, see below: [facility] [address] [place] [id number] [facility] [address] [place] [address] Sepsis Event Note (ED) - Evaluation Sepsis Screening Result: No Definite Risk - Focused Exam Vital Signs: Vital Signs Temp Pulse Resp BP Pulse Ox 11/21/21 08:45 96.8 F L 112 H 18 127/82 97 - Assessment/Plan Plan: Patient is 81-year-old female brought in today for pain mostly in her throat. She satting 96% on room air and looks well she is tachycardic but she recently use albuterol inhaler. We still will obtain a strep test EKG labs and reassess.
[2021-11-21 10:07] LABS: BLOOD UREA NITROGEN,BUN 17 mg/dL (7.0-18.0); CARBON DIOXIDE,CO2 22.9 mmol/L (21.0-32.0); CHLORIDE,CL 106 mmol/L (98-107); GLUCOSE RANDOM 135 mg/dL (74-106); POTASSIUM,K 3.3 mmol/L (3.5-5.1); SODIUM,NA 141 mmol/L (136-145)
--- NOTE | 2021-11-21 10:17 | CR ---
INDICATION: cough;throat pain; tachycardia. COMPARISON: Single AP chest radiograph December 17, 2020. TECHNIQUE: Single AP chest. FINDINGS: Normal size cardiac silhouette. Clear lung bhatia with no evidence of acute pneumonic infiltrates or CHF. No pneumothorax or pleural effusion. No interval change. IMPRESSION: No acute pathology. Dictated by Demetrio Arguelles MD @ 11/21/2021 10:16:50 AM (Electronically Signed)
[2021-11-21 15:11] VITALS: BP 139/68; PULSE 94
== END 2021-11-21 13:19 | disposition home or self-care (01) ==
LOC: MW.ED 08:42
DX: R07.0 Pain in throat (principal); R00.0 Tachycardia, unspecified; J45.909 Unspecified asthma, uncomplicated
CPT/HCPCS: 36415; 71045; 71045-26; 80053; 84484; 85025; 87651-QW; 93005; 99285-25

== ENCOUNTER 2022-07-16 13:48 | Inpatient (IN) | payer MEDICARE, OTHER ==
[2022-07-16] MEDS ORDERED: Sodium Chloride 0.9% 2.5 ML Syringe FLUSH PRN (15:37)
[2022-07-16] MEDS ORDERED: Sodium Chloride 0.9% 10 ML Syringe FLUSH PRN (15:37)
[2022-07-16] MEDS ORDERED: Sodium Chloride 0.9% 500 ML IV SCH (15:45)
[2022-07-16 16:47] LABS: CARBON DIOXIDE,CO2 22.7 mmol/L (21.0-32.0); POTASSIUM,K 3.8 mmol/L (3.5-5.1)
[2022-07-16] MEDS ORDERED: Acetaminophen 325 MG Tab PO PRN (17:43)
[2022-07-16] MEDS ORDERED: Ondansetron 4 MG/2 ML SDV IVPUSH PRN (17:43)
[2022-07-16] MEDS ORDERED: Albuterol/Ipratropium 3.0-0.5 MG/3 ML Neb Soln NEB PRN (17:43)
[2022-07-16] MEDS: Lactated Ringers 1,000 ML IV SCH (19:32)
[2022-07-16] MEDS: Enoxaparin 40 MG/0.4 ML Syringe SUBCUT SCH (19:33)
[2022-07-16] MEDS: Pantoprazole 40 MG in Sodium Chloride 0.9% 10 ML IVPUSH SCH (20:08)
[2022-07-16] MEDS: cefTRIAXone 1 GM in Sodium Chloride 0.9% 50 ML IV SCH (20:23)
[2022-07-17] MEDS: Lactated Ringers 1,000 ML IV SCH ×2 (05:03→15:19)
[2022-07-17 06:21] LABS: CARBON DIOXIDE,CO2 23.6 mmol/L (21.0-32.0); POTASSIUM,K 3.7 mmol/L (3.5-5.1)
[2022-07-17] MEDS ORDERED: Levothyroxine 25 MCG Tab PO SCH (07:30)
[2022-07-17] MEDS: Pantoprazole 40 MG in Sodium Chloride 0.9% 10 ML IVPUSH SCH ×2 (08:28→22:31)
[2022-07-17] MEDS: Enoxaparin 40 MG/0.4 ML Syringe SUBCUT SCH (17:12)
[2022-07-17] MEDS: cefTRIAXone 1 GM in Sodium Chloride 0.9% 50 ML IV SCH (20:45)
[2022-07-18] MEDS ORDERED: Diltiazem 25 MG/5 ML SDV IVPUSH ONE (05:00)
[2022-07-18 06:23] LABS: CARBON DIOXIDE,CO2 21.2 mmol/L (21.0-32.0); POTASSIUM,K 3.3 mmol/L (3.5-5.1)
[2022-07-18] MEDS: Levothyroxine 25 MCG Tab PO SCH (06:36)
[2022-07-18] MEDS ORDERED: Potassium Chloride 20 MEQ Tab.ER PO ONE (06:49)
[2022-07-18] MEDS ORDERED: Albuterol 8 GM Inhaler INH PRN (07:49)
[2022-07-18] MEDS: Pantoprazole 40 MG in Sodium Chloride 0.9% 10 ML IVPUSH SCH ×2 (09:10→20:43)
[2022-07-18] MEDS: Fluticasone/Salmeterol 250-50 MCG Inhalation Powder 14/Diskus INH SCH ×2 (09:10→20:44)
[2022-07-18] MEDS ORDERED: Metoprolol Tartrate 25 MG Tab PO SCH ×3 (11:15→23:55)
[2022-07-18] MEDS ORDERED: Loratadine 10 MG Tab PO PRN (11:21)
[2022-07-18] MEDS ORDERED: Loperamide 2 MG Cap PO PRN (11:22)
[2022-07-18] MEDS: Apixaban 2.5 MG Tab PO SCH ×2 (11:53→22:35)
[2022-07-18] MEDS ORDERED: Magnesium Sulfate/Water 2 GM in Premix Bag 1 BAG IV ONE (14:00)
[2022-07-18] MEDS ORDERED: Metoprolol Tartrate 25 MG Tab PO ONE (17:54)
[2022-07-18] MEDS: cefTRIAXone 1 GM in Sodium Chloride 0.9% 50 ML IV SCH (20:43)
[2022-07-18] MEDS: Lactated Ringers 1,000 ML IV SCH (21:04)
[2022-07-18] MEDS ORDERED: VANCOmycin 1.5 GM/300 ML 1.5 GM in Premix Bag 1 BAG IV SCH (22:00)
[2022-07-19] MEDS: Levothyroxine 25 MCG Tab PO SCH (09:16)
[2022-07-19] MEDS: Metoprolol Tartrate 25 MG Tab PO SCH ×2 (09:17→09:24)
[2022-07-19] MEDS: Pantoprazole 40 MG in Sodium Chloride 0.9% 10 ML IVPUSH SCH (09:19)
[2022-07-19] MEDS: Fluticasone/Salmeterol 250-50 MCG Inhalation Powder 14/Diskus INH SCH (09:27)
[2022-07-19] MEDS ORDERED: Metoprolol Succinate 100 MG Tab.ER PO SCH (09:30)
[2022-07-19 09:54] VITALS: BP 132/62; PULSE 99
[2022-07-19 09:55] LABS: CARBON DIOXIDE,CO2 21.7 mmol/L (21.0-32.0); POTASSIUM,K 3.6 mmol/L (3.5-5.1)
[2022-07-19] MEDS: Apixaban 2.5 MG Tab PO SCH (11:27)
== END 2022-07-19 12:57 | disposition home or self-care (01) | DRG 439 ==
LOC: MW.ED 13:48 → MW.MS 17:10 → OBSVTOIN 07-17 10:54 → MW.MS 07-17 15:13
PROVIDERS: ADMIT Student in an Organized Health Care Education/Training Program; ATTEND Internal Medicine
DX: K85.90 Acute pancreatitis without necrosis or infection, unspecified (principal); K85.30 Drug induced acute pancreatitis without necrosis or infection; R53.1 Weakness; N39.0 Urinary tract infection, site not specified; T36.8X5A Adverse effect of other systemic antibiotics, initial encounter; I48.91 Unspecified atrial fibrillation; R44.1 Visual hallucinations; H54.7 Unspecified visual loss; J45.909 Unspecified asthma, uncomplicated; Z20.822 Contact with and (suspected) exposure to COVID-19; K57.90 Diverticulosis of intestine, part unspecified, without perforation or abscess without bleeding; E03.9 Hypothyroidism, unspecified; Z88.8 Allergy status to other drugs, medicaments and biological substances; Z79.890 Hormone replacement therapy; Z79.899 Other long term (current) drug therapy
CPT/HCPCS: 36415 ×2; 80053 ×2; 81001; 83690 ×2; 85025 ×2; 87086; 93005; 99285; A9270; C9113 ×2; J0696; J1650; J3490 ×3; J7040; J7120 ×2; U0002; 80048; 80202; 83735; 93010; 96372; 97161-GP; 99219; 99232; 99239; 99284; G0378; J3370; J3475; J7050

== ENCOUNTER 2025-06-12 18:56 | Emergency (ER) | payer MEDICARE, OTHER ==
[2025-06-12 19:13] LABS: BASOPHILS ABSOLUTE AUTO 0.02 K/uL (0.00-0.20); BASOPHILS PERCENT AUTO 0.3 % (0.0-1.0); EOSINOPHILS ABSOLUTE AUTO 0.14 K/uL (0.00-0.45); EOSINOPHILS PERCENT AUTO 2.1 % (0.0-6.0); IMMATURE GRAN ABSOLUTE AUTO 0.02 K/uL (0.00-0.05); IMMATURE GRAN PERCENT AUTO 0.3 % (0.0-0.4); LYMPHOCYTES ABSOLUTE AUTO 1.28 K/uL (1.00-4.80); LYMPHOCYTES PERCENT AUTO 19.1 % (24.0-44.0); MEAN PLATELET VOLUME 9.0 fL (9.4-12.3); MONOCYTES ABSOLUTE AUTO 0.60 K/uL (0.00-0.80); MONOCYTES PERCENT AUTO 9.0 % (0.0-8.0); NEUTROPHILS ABSOLUTE AUTO 4.63 K/uL (1.80-7.70); NEUTROPHILS PERCENT AUTO 69.2 % (41.0-71.0); NRBC ABSOLUTE 0.00 K/uL (0.00-0.02); NRBC PERCENT 0.0 /100WBC (0.0-0.2); PLATELET COUNT,PLT 187 K/uL (150-400); RED BLOOD CELL COUNT 3.46 M/uL (4.10-5.30); WHITE BLOOD CELL COUNT,WBC 6.69 K/uL (3.9-11.3)
[2025-06-12] MEDS: Iopamidol 755 MG/ML 500 ML Multipack Bottle IVPUSH STA (19:38)
[2025-06-12 19:47] LABS: A/G RATIO 1.0 (0.9-1.6); ALANINE AMINOTRANSFERASE,ALT 15.0 IU/L (14-63); ASPARTATE AMNIOTRANSFERASE,AST 15.0 IU/L (15-37); BILIRUBIN TOTAL 0.3 mg/dL (0.2-1.0); BLOOD UREA NITROGEN,BUN 19.0 mg/dL (7.0-18.0); CARBON DIOXIDE,CO2 22.3 mmol/L (21.0-32.0); CHLORIDE,CL 110.0 mmol/L (98-107); CREATININE 0.8 mg/dL (0.6-1.0); EST CRCL DRUG DOSING (CG) 39.4 mL/min; GLUCOSE RANDOM 136.0 mg/dL (74-106); POTASSIUM,K 3.1 mmol/L (3.5-5.1); PRO B-TYPE NATRIUR PEPT,BNPPRO 187.0 pg/mL (0-450); PROTEIN TOTAL,TP 5.1 g/dL (6.4-8.2); SODIUM,NA 143.0 mmol/L (136-145); TSH ULTRASENSITIVE 4.28 uIU/mL (0.36-3.74)
[2025-06-12 19:53] LABS: ESTIMATED GFR 72.0 mL/min (>60)
[2025-06-12 20:11] LABS: T4 FREE 1.01 ng/dL (0.76-1.46)
[2025-06-12] MEDS: fentaNYL 50 MCG/ML SDV IVPUSH ONE ×2 (21:33→22:59)
[2025-06-13 00:10] VITALS: BP 141/84; PULSE 63
== END 2025-06-13 00:37 ==
LOC: MW.ED 18:56
DX: S72.142A Displaced intertrochanteric fracture of left femur, initial encounter for closed fracture (principal); S32.010A Wedge compression fracture of first lumbar vertebra, initial encounter for closed fracture; S12.001A Unspecified nondisplaced fracture of first cervical vertebra, initial encounter for closed fracture; E86.0 Dehydration; J45.909 Unspecified asthma, uncomplicated; Z88.8 Allergy status to other drugs, medicaments and biological substances; Z79.01 Long term (current) use of anticoagulants; Z79.899 Other long term (current) drug therapy; W18.30XA Fall on same level, unspecified, initial encounter; Y92.010 Kitchen of single-family (private) house as the place of occurrence of the external cause
CPT/HCPCS: 36415; 70450; 70450-26; 71260; 71260-26; 72125; 72125-26; 72128; 72128-26; 72131; 72131-26; 73552-26-LT; 73552-LT; 74177; 74177-26; 80053; 83690; 83880; 84439; 84443; 84484; 85025; 93005; 93010; 96361; 96374; 96376; 99285; 99285-25; J3010; J7030; Q9967